=== PATIENT | male | born 1935 | race Caucasian/White ===

== ENCOUNTER 2019-07-27 14:26 | Outpatient (RCR) | payer OTHER, SELFPAY | END 2019-08-21 23:59 | disposition home or self-care (01) | LOC: SPT 14:26 | PROVIDERS: Family Provider Internal Medicine; PCP Internal Medicine; Referring Provider Internal Medicine; Visit Provider Internal Medicine | DX: R53.1 Weakness (principal); M62.81 Muscle weakness (generalized) | CPT/HCPCS: 97110; 97161 ==

== ENCOUNTER 2019-07-31 10:56 | Emergency (ER) | payer OTHER, SELFPAY ==
[2019-07-31 11:07] VITALS: BP 145/76; PULSE 91; RESP 15; TEMP 36.5; O2SAT 94; BMI 24.7
--- NOTE | 2019-07-31 11:17 | ED_ITS ---
Entered by Ellie Dick, acting as scribe for Sheila Hamilton Jul 31, 2019 10:56 HPI - Epistaxis General: Chief complaint: Epistaxis Stated complaint: AMS Time Seen by Provider: 07/31/19 11:17 Source: patient and family Mode of arrival: ambulatory Limitations: no limitations History of Present Illness: HPI Narrative: 83 yo Male presents to ED with complaint of epistaxis. Pt's states that the patient recently changed from warfarin to eliquis 5mg twice daily. Pt's states that the patient has started having more and more nose bleeds over the past 2 weeks. Pt's states that the patient cannot swallow and has a throat but that the blood has been running down and into his stomach, making him sick to his stomach. MD complaint: epistaxis Location: bilateral nostril Onset (ago): week(s) (2) Duration: intermittent Context: other anticoagulant use Associated symptoms: Reports no associated symptoms; Deny fever(s), headache(s), syncope or vomiting Review of Systems General: Reports: other (negative unless marked) Const: Denies: fever, chills, body aches, fatigue, malaise or diaphoresis Eyes: Denies: change in vision or blurry vision ENMT: Reports: nose bleeds; Denies: throat pain, painful swallowing, hoarseness, ear pain, ear discharge, Change in hearing or nasal discharge Card: Denies: chest pain, palpitations, irregular heart rhythm, syncope, pre- syncope, shortness of breath on exertion or shortness of breath when lying down Resp: Denies: shortness of breath, productive cough, non-productive cough, wheezing, coughing up blood or chest congestion GI: Denies: abdominal pain, nausea, vomiting, vomiting blood, coffee grounds in vomit, diarrhea, constipation, cramping, blood in stool or black tarry stool : Denies: flank pain, difficulty urinating, painful urination, urinary frequency, urinary urgency, decreased urine ouput, urinary incontinence or blood in urine Musc: Denies: neck pain, back pain, extremity pain, extremity swelling, joint pain, joint swelling, joint warmth or joint stiffness Skin/Breast: Denies: rash, skin tenderness or yellow skin Neuro: Denies: headache, numbness in extremities, weakness in extremities, changes in sensation, lack of coordination, difficulty walking, dizziness, vertigo or confusion Endo: Denies: excessive thirst, tired all the time, cold intolerance, excessive sweating, flushing or hot flashes Jeovany/Lymph: Denies: easy bruising, easy bleeding, petechiae or enlarged lymph nodes All/Imm: Denies: hives, throat swelling, tongue swelling, facial swelling or acute wheezing PFSH ED PFSH: Statuses (acute, chronic, etc) shown below reflect problem list status as previously entered and may not be historically accurate Social History Smoking and tobacco status: former smoker Physical Exam Const: COMMON NORMALS: no apparent distress, oriented x3, no limitations, healthy appearing and well nourished EXAM LIMITATIONS: no altered mental status GENERAL APPEARANCE: cooperative, well kempt and well developed ORIENTATION/CONSCIOUSNESS: Yes awake HENMT: COMMON NORMALS: normocephalic, head/scalp atraumatic, hearing grossly normal bilaterally, external ears normal, EAC's normal, external nose normal and moist oral mucous membranes HEAD & SCALP: normal to inspection, normocephalic and atraumatic FACE & SINUS: normal facial exam and face symmetric NOSE: external nose normal and nares normal EXTERNAL EAR: Yes external ears normal EXTERNAL AUDITORY CANAL: EAC's normal MOUTH: oral and palatal mucosa normal and tongue normal Eye: COMMON NORMALS: PERRL, EOMs intact bilaterally, conjunctivae normal and no scleral icterus GENERAL EYE: normal appearance of both eyes and normal light reflex CONJUNCTIVA: Yes conjunctivae normal SCLERA: sclerae normal CORNEA: Yes corneas normal PUPIL: Yes PERRL DIRECT OPHTHALMOSCOPY: Yes normal light reflex Neck/C-Spine: COMMON NORMALS: full ROM, no lymphadenopathy, supple, no meningeal signs and no JVD GENERAL: Yes normal visual inspection and Yes trachea midline CERVICAL SPINE: Yes cervical ROM normal Chest: COMMONS NORMALS: inspection of chest normal and palpation of chest normal Resp: COMMON NORMALS: normal respiratory effort, no retractions, no use of accessory muscles and clear to auscultation bilaterally EFFORT & INSPECTION: Yes able to speak in complete sentences AUSCULTATION: clear to auscultation bilaterally Cardio: COMMON NORMALS: no JVD, regular rate, regular rhythm, S1 normal heart sound, S2 normal heart sound, no gallops, no clicks, no murmurs and no rub JUGULAR VENOUS DISTENTION: no JVD RATE: regular rate RHYTHM: regular rhythm HEART SOUNDS: S1 normal and S2 normal GI: COMMON NORMALS: soft to palpation, non-tender, no hepatosplenomegaly and no masses INSPECTION: Yes normal to inspection PALPATION: Yes soft and Yes no hepatosplenomegaly : COMMON NORMALS: Yes no CVA tenderness BLADDER/KIDNEY EXAM: Yes no CVA tenderness Back/Pelvis: COMMON NORMALS: no CVA tenderness, thoracic and lumbar spine normal to inspection, no thoracic nor lumbar tenderness and thoraco-lumbar ROM normal Extremity: COMMON NORMALS: normal to inspection, full ROM, normal capillary refill, no joint enlargement, no clubbing, cyanosis or edema and no calf tenderness Neuro: COMMON NORMALS: oriented x3, CN's II-XII intact bilaterally, moves all extremities, no focal motor deficits and no sensory deficits noted MENINGEAL SIGNS: Yes no meningeal signs Psych: COMMON NORMALS: mental status grossly normal, thought process normal, cooperative, affect normal, speech normal and activity/motor behavior normal APPEARANCE: Yes well kempt SPEECH: Yes normal speech THOUGHT PROCESS: normal thought process Skin: COMMON NORMALS: no rashes or lesions noted, skin turgor normal, no jaundice, no petechiae and no mottling GENERAL SKIN EXAM: no rashes or lesions noted and turgor normal Course Vital Signs: Vital signs: Vital Signs Temperature 97.7 F 07/31/19 11:07 Pulse Rate 74 07/31/19 13:09 Respiratory Rate 16 07/31/19 13:09 Blood Pressure 145/76 07/31/19 11:07 Pulse Oximetry 96 07/31/19 13:09 MDM - Epistaxis [facility] Narrative: Medical decision making narrative: Arrival -Mr. Fishman is an 83-year-old male who comes in complaining of intermittent nosebleed for the past 2 weeks. He has recently made a switch from warfarin to Eliquis. He and his deny any melanotic stools or blood in his stools. Currently there is no evidence of bleeding. I see no dried blood or current bleeding in either nostril although the right nostril is somewhat swollen with edema but no active erythema. I will check baseline labs and apply oxymetazoline own and rule out any anemia. Discharge -patient has no epistaxis here. He was given oxymetazoline nasal spray to each nostril any can breathe better at this time. I see no evidence of sinusitis. The patient is anxious to go home. His hemoglobin and hematocrit are unremarkable. His lab work is unremarkable. I have encouraged him to use the Afrin for the next 2 days as well as today. They will use AYR nasal spray at home to keep his nose moist. I have given him instructions to return if he cannot stop the bleeding at home or has any other complaints. I have referred them to Dr. Miranda and they understand they will need to follow-up for evaluation but I believe at this time his nosebleed is likely from a dry nose. There is no sign of posterior bleed and no sign of blood in his throat. He is not lightheaded or dizzy or near syncopal. I believe he is safe for discharge. Family agrees and they will follow-up i as directed or return here if needed. Lab Data: Labs: Lab Results 07/31/19 07/31/19 07/31/19 Range/Units 12:07 12:07 12:07 WBC 9.1 (4.0-10.0) 10^3/ uL RBC 4.50 (4.1-5.3) 10^6/u L Hgb 13.7 (11.7-16.6) g/dL Hct 42.7 (42.0-52.0) % MCV 94.9 H (80-94) fL MCH 30.4 (28.0-34.0) pg MCHC 32.1 (30.0-36.0) g/dL RDW 13.8 (12.1-15.1) % Plt Count 138 (130-400) 10^3/c mm MPV 10.5 H (7.4-10.4) fL Neut % (Auto) 71.0 % Lymph % (Auto) 17.6 % [place] % (Auto) 10.2 % Eos % (Auto) 0.5 % Baso % (Auto) 0.5 % Neut # (Auto) 6.5 (1.8-7.7) 10^3/u L Lymph # (Auto) 1.6 (0.8-4.8) 10^3/u L [place] # (Auto) 0.9 (0.2-0.9) 10^3/u L Eos # (Auto) 0.1 (0.0-0.8) 10^3/u L Baso # (Auto) 0.1 (0.0-0.1) 10^3/u L Nucleated RBC % (a uto) 0 % Nucleated RBCs # 0.0 /100WBC PT 19.00 H (10.5-13.3) SECO NDS INR 1.53 H (0.8-1.2) APTT 40.6 H (23.9-36.7) SECO NDS Sodium 131 L (136-145) mmol/L Potassium 4.0 (3.5-5.1) mmol/L Chloride 93 L (98-107) mmol/L Carbon Dioxide 25 (22-29) mmol/L Anion Gap 17.0 (5-19) BUN 32 H (8-23) mg/dL Creatinine 0.8 (0.7-1.2) mg/dL Glucose 121 H (65-115) mg/dL Calcium 9.9 (8.5-10.5) mg/dL Total Bilirubin 1.3 H (0.15-1.2) mg/dL AST 26 (0-40) U/L ALT 17 (0-41) U/L Alkaline Phosphata se 142 H (40-130) IU/L Total Protein 6.7 (6.6-8.7) g/dL Albumin 3.4 L (3.5-5.2) g/dL Globulin 3.3 (1.3-4.6) g/dL Discharge Plan Discharge Patient Disposition: Home, Self-Care Clinical Impression: Epistaxis Condition: Stable Prescriptions: No Action Lantus U-100 Insulin 100 unit/mL Solution 25 unit SUBCUT DAILY RF: 0 isosorbide mononitrate 30 mg Tablet Extended Release 24 Hr 30 mg PO DAILY RF: 0 allopurinol 100 mg Tablet 200 mg PO DAILY RF: 0 citalopram 20 mg Tablet 10 mg PO DAILY RF: 0 aspirin 81 mg Tablet,Chewable 81 mg PO DAILY RF: 0 metoprolol tartrate 25 mg Tablet 12.5 mg PO DAILY RF: 0 Eliquis 5 mg Tablet 5 mg PO BID RF: 0 cyanocobalamin (vitamin B-12) 1,000 mcg/mL Kit 1,000 mcg IM DAILY RF: 0 Discharge Orders: Discharge Order (Routine); Ordered 07/31/19 Ordered By: Sheila Hamilton Referrals: Karel Miranad MD [Physician] - 1-3 days Jorge A Bishop [Primary Care Provider] - Discharge Diet: Usual diet Discharge Activity: Increase activity as tolerated Patient Instructions: Epistaxis (ED) Activity Restrictions/Additional Instructions: Please return to the ER immediately for any of the signs or symptoms listed on your discharge instruction sheets, worsening/changing of your symptoms, you are not getting better as quickly as expected, or for ANY other cause or concerns. Return to the ER if your nose begins to bleed again it cannot be controlled with the clamp or pressure. Use the Afrin nasal spray today and 2 more days and the nasal moisturizer AYR to prevent any future nosebleeds. Discharge Date/Time: 07/31/19 13:10 Coding Level of Care Code ED [place] Stitcher for Chg Fwd Exam Problem Focused The documentation recorded by the Mayelin red Carmen, accurately reflects the service I personally performed and the decisions made by Joy perez Eli N Jul 31, 2019 10:56
[2019-07-31] MEDS: oxymetazoline 0.05% Nasal Spray 15 mL 2 SPRAY NOSTRIL-B (11:27)
[2019-07-31 12:21] LABS: Basophils # 0.1 10^3/uL (0.0-0.1); Basophils % 0.5 %; Eosinophils # 0.1 10^3/uL (0.0-0.8); Eosinophils % 0.5 %; Hematocrit 42.7 % (42.0-52.0); Hemoglobin 13.7 g/dL (11.7-16.6); Lymphocytes # 1.6 10^3/uL (0.8-4.8); Lymphocytes % 17.6 %; Mean Corpuscular HGB Conc 32.1 g/dL (30.0-36.0); Mean Corpuscular Hemoglobin 30.4 pg (28.0-34.0); Mean Corpuscular Volume 94.9 fL (80-94); Mean Platelet Volume 10.5 fL (7.4-10.4); Monocytes # 0.9 10^3/uL (0.2-0.9); Monocytes % 10.2 %; Neutrophils # 6.5 10^3/uL (1.8-7.7); Nucleated Red Blood Cells % 0 %; Platelet Count 138 10^3/cmm (130-400); Red Cell Distribution Width 13.8 % (12.1-15.1); White Blood Count 9.1 10^3/uL (4.0-10.0)
[2019-07-31 12:29] LABS: INR 1.53 (0.8-1.2)
[2019-07-31 12:30] LABS: Partial Thromboplastin Time 40.6 SECONDS (23.9-36.7)
[2019-07-31 12:33] LABS: Alanine Aminotransferase 17 U/L (0-41); Albumin Level 3.4 g/dL (3.5-5.2); Alkaline Phosphatase 142 IU/L (40-130); Aspartate Amino Transferase 26 U/L (0-40); Blood Urea Nitrogen 32 mg/dL (8-23); Calcium 9.9 mg/dL (8.5-10.5); Carbon Dioxide 25 mmol/L (22-29); Chloride 93 mmol/L (98-107); Globulin 3.3 g/dL (1.3-4.6); Glucose 121 mg/dL (65-115); Sodium 131 mmol/L (136-145); Total Bilirubin 1.3 mg/dL (0.15-1.2); Total Protein 6.7 g/dL (6.6-8.7)
[2019-07-31 13:09] VITALS: PULSE 74; RESP 16; O2SAT 96
--- NOTE | 2019-08-02 15:54 | DCPLANNER ---
biomass power plant manager had message to schedule a follow up appointment for patient with Dr. Miranda, ENT. biomass power plant manager called the ENT clinic, spoke with Priscilla, gave clinic patients information. biomass power plant manager was unable to schedule the appointment at this time, due to patient having [facility] insurance. Mark costa called [facility] with [facility], and gave her the patients information, and faxed patients records to September.
--- NOTE | 2019-08-12 10:24 | DCPLANNER ---
custodial services manager called the ENT to clinic to confirm that a follow up appointment had been scheduled for patient. custodial services manager spoke with Priscilla, was told that the clinic was still waiting for authorization. custodial services manager called [facility] with the [facility], was told that patient seen his [facility] doctor and his medications were being changed, patient does not need a referral to ENT at this time. custodial services manager called ENT and informed the clinic, that patient does not need an appointment at this time.
== END 2019-07-31 13:10 | disposition home or self-care (01) ==
PROVIDERS: Emergency Provider Emergency Medicine; Family Provider Internal Medicine; PCP Internal Medicine
DX: Z79.4 Long term (current) use of insulin (principal); Z79.82 Long term (current) use of aspirin; Z79.01 Long term (current) use of anticoagulants; Z87.891 Personal history of nicotine dependence
CPT/HCPCS: 36415; 80053; 85025; 85610; 85730; 99281; 99282

== ENCOUNTER 2019-08-22 06:00 | Outpatient (RCR) | payer OTHER, SELFPAY | END 2019-09-21 23:59 | disposition home or self-care (01) | LOC: SPT 06:00 | PROVIDERS: Family Provider Internal Medicine; PCP Internal Medicine; Referring Provider Internal Medicine; Visit Provider Internal Medicine | DX: M62.81 Muscle weakness (generalized) (principal) | CPT/HCPCS: 97110 ==

== ENCOUNTER 2019-09-22 06:00 | Outpatient (RCR) | payer OTHER, SELFPAY | END 2019-10-21 23:59 | disposition home or self-care (01) | LOC: SPT 06:00 | PROVIDERS: Family Provider Internal Medicine; PCP Internal Medicine; Referring Provider Internal Medicine; Visit Provider Internal Medicine | DX: M62.81 Muscle weakness (generalized) (principal) | CPT/HCPCS: 97110 ==

== ENCOUNTER 2019-10-22 06:00 | Outpatient (RCR) | payer OTHER, SELFPAY | END 2019-11-21 23:59 | disposition home or self-care (01) | LOC: SPT 06:00 | PROVIDERS: PCP Internal Medicine; Referring Provider Internal Medicine; Visit Provider Internal Medicine | DX: M62.81 Muscle weakness (generalized) (principal) | CPT/HCPCS: 97110 ==

== ENCOUNTER 2019-11-22 06:00 | Outpatient (RCR) | payer OTHER, SELFPAY | END 2019-11-25 23:00 | disposition home or self-care (01) | LOC: SPT 06:00 | PROVIDERS: PCP Internal Medicine; Referring Provider Internal Medicine; Visit Provider Internal Medicine | DX: M62.81 Muscle weakness (generalized) (principal); R53.1 Weakness; Z86.73 Personal history of transient ischemic attack (TIA), and cerebral infarction without residual deficits | CPT/HCPCS: 97110 ==

== ENCOUNTER 2019-12-06 04:14 | Emergency (ER) | payer OTHER, SELFPAY ==
[2019-12-06 04:24] VITALS: BP 138/72; PULSE 66; RESP 18; TEMP 36.6; O2SAT 92; BMI 25.3
--- NOTE | 2019-12-06 04:35 | CTR_ITS ---
PROCEDURE INFORMATION: Exam: CT Head Without Contrast Exam date and time: 12/06/2019 4:40 AM Age: 84 years old Clinical indication: Injury or trauma; Fall; Initial encounter; Blunt trauma (contusions or hematomas); Without loss of consciousness TECHNIQUE: Imaging protocol: Computed tomography of the head without contrast. Radiation optimization: All CT scans at this facility use at least one of these dose optimization techniques: automated exposure control; mA and/or kV adjustment per patient size (includes targeted exams where dose is matched to clinical indication); or iterative reconstruction. COMPARISON: No relevant prior studies available. RADIATION DOSE METRICS: Total DLP: 851.95 mGy-cm FINDINGS: Brain: Hypodensity is seen in the periventricular cerebral white matter. This change is nonspecific but is most likely secondary to chronic ischemia within microvascular distributions. Aldrich white matter distinction is maintained throughout the brain. No radiographic evidence of intracranial hemorrhage. Ventricles: Ventricles are enlarged on the basis of mild diffuse cerebral volume loss. Bones/joints: Unremarkable. No acute fracture. Sinuses: Visualized sinuses are unremarkable. No fluid levels. Mastoid air cells: Visualized mastoid air cells are well aerated. Soft tissues: Unremarkable. Other findings: No intra or extra-axial masses, lesions or collections. CT/CT head wo con* [id number] IMPRESSION: No radiographic evidence of acute intracranial pathology. Radiation Dose CTDIVOL = (mGy): DLP = 851.95 (mGy-cm)
--- NOTE | 2019-12-06 05:09 | PC.NURSE ---
i agree with this assessment
[2019-12-06] MEDS: neomycin-poly-bacitracin oint 0.9 gm Pkt 1 APPLIC TOPICAL (05:10)
--- NOTE | 2019-12-06 05:15 | ED_ITS ---
HPI - Fall General: Chief Complaint: Fall Stated Complaint: fall/arm wounds Time Seen by Provider: 12/06/19 04:27 History of Present Illness: HPI Narrative: 84-year-old male who lives at home. He has a history of dementia. He got up to go to the bathroom this morning and stumbled. He hit his head, and scraped his arms on the way down. He remembers the whole event. There was no loss of consciousness. No prolonged downtime. MD complaint: fall Onset (ago): minute(s) Fall from: standing Fall witnessed: no Place fall occurred: home Loss of consciousness: None Prolonged down time: no Symptoms prior to fall: none Context: tripped/slipped Location of injury: head and other (Bilateral upper extremity) Severity scale (1-10): 3 Associated symptoms-after fall: Reports no associated symptoms and headache(s); Denies abdominal pain, chest pain, neck pain or vertigo Review of Systems Const: Denies: fever(s) or chills Eyes: Denies: change in vision ENMT: Denies: swelling of lips/tongue, bleeding gums, epistaxis, post nasal drip or sinus pain Card: Denies: chest pain, palpitations or irregular heart rhythm Resp: Denies: dyspnea, productive cough, non-productive cough or wheezing GI: Denies: abdominal pain, nausea or vomiting : Denies: difficulty urinating, dysuria or urinary frequency Musc: Denies: neck pain or back pain Skin/Breast: Denies: rash, pruritus or erythema Neuro: Reports: headache(s); Denies: dizziness or vertigo Psych: Denies: anxiety or auditory hallucinations [facility] ED PFSH: Social History Smoking and tobacco status: former smoker Physical Exam Const: GENERAL APPEARANCE: well developed ORIENTATION/CONSCIOUSNESS: Yes oriented to person and Yes oriented to place; not oriented to time HENMT: COMMON NORMALS: external ears normal and Normal external nose present HEAD & SCALP: contusion (Occipital with puncture wound.) and scalp tenderness FACE & SINUS: normal facial exam NOSE: Normal external nose present and No nasal discharge present EXTERNAL EAR: Yes external ears normal MOUTH: tongue normal TEETH & GINGIVA: no abnormal tooth and associated gingiva THROAT: posterior oropharynx normal; no peritonsillar mass Eye: COMMON NORMALS: Equal, round and reactive pupils present, EOMs intact bilaterally and conjunctivae normal EYELID: eyelids normal CONJUNCTIVA: Yes conjunctivae normal PUPIL: Yes Equal, round and reactive pupils present Neck/C-Spine: COMMON NORMALS: full ROM GENERAL: No tracheal deviation CERVICAL SPINE: Yes normal cervical lordosis and No Cervical spine tenderness Chest: COMMONS NORMALS: normal inspection of the chest CHEST: No tenderness Resp: COMMON NORMALS: clear to auscultation bilaterally EFFORT & INSPECTION: No tachypneic, No respiratory distress, No retractions, No uses accessory muscles and No tracheal deviation AUSCULTATION: clear to au scultation bilaterally, no rhonchi, no wheezes and lung sounds not diminished Cardio: COMMON NORMALS: regular rate and regular rhythm RATE: regular rate RHYTHM: regular rhythm PERIPHERAL PULSES: radial pulses present GI: INSPECTION: No abdominal distension AUSCULTATION: No Hyperactive bowel sounds present and No Hypoactive bowel sounds present PALPATION: No Guarding due to palpation present (GI) and No Rigid due to palpation PERCUSSION: no dullness to percussion and no tympanic to percussion Extremity: NARRATIVE EXTREMITY EXAM: Examination of right upper extremity reveals significant deep abrasions with skin tearing to the forearms and elbow. No discrete laceration. Exam the left upper extremity reveals a smaller skin tear to the left elbow. No repairable laceration. Neuro: SENSORIUM/ORIENTATION: Yes oriented to person, Yes oriented to place and No oriented to time Skin: COMMON NORMALS: no rashes or lesions noted GENERAL SKIN EXAM: no rashes or lesions noted Course Vital Signs: Vital signs: Vital Signs Temperature 97.9 F 12/06/19 04:24 Pulse Rate 66 12/06/19 04:24 Respiratory Rate 18 12/06/19 04:24 Blood Pressure 138/72 12/06/19 04:24 Pulse Oximetry 92 12/06/19 04:24 MDM - Fall MDM Narrative: Medical decision making narrative: Patient is anticoagulated. Head CT is negative for bleed. Wounds will be dressed with nonstick/Telfa gauze. Supplies sent home with his daughter. Discharge Plan Discharge Patient Disposition: Home, Self-Care Clinical Impression: Skin tear Contusion of scalp Qualifiers: Encounter type: initial encounter Qualified Code(s): S00.03XA - Contusion of scalp, initial encounter Condition: Stable Prescriptions: No Action Lantus U-100 Insulin 100 unit/mL Solution 25 unit SUBCUT DAILY RF: 0 isosorbide mononitrate 30 mg Tablet Extended Release 24 Hr 30 mg PO DAILY RF: 0 allopurinol 100 mg Tablet 200 mg PO DAILY RF: 0 citalopram 20 mg Tablet 20 mg PO DAILY RF: 0 aspirin 81 mg Tablet,Chewable 81 mg PO DAILY RF: 0 metoprolol tartrate 25 mg Tablet 12.5 mg PO DAILY RF: 0 cyanocobalamin (vitamin B-12) 1,000 mcg/mL Kit 1,000 mcg IM DIRECTED RF: 0 warfarin 5 mg Tablet 5 mg PO DIRECTED RF: 0 Discharge Orders: Discharge Order (Routine); Ordered 12/06/19 Ordered By: Mandeep Dorado Referrals: Jorge A Bishop [Primary Care Provider] - 7-10 days Discharge Activity: Increase activity as tolerated Patient Instructions: Scalp Contusion in Adults (ED), Skin Tear (ED) Activity Restrictions/Additional Instructions: Dress wounds with triple antibiotic ointment and nonstick pad with wrap as shown in the ER. Change once to twice a day. Return for worsening mental status, worsening headache, vomiting, continued bleeding or streaking redness of wounds, other concerning symptoms. Coding Level of Care Code ED Mold Cutting Machine Operator for Feliberto Miles
--- NOTE | 2019-12-06 05:46 | PC.NURSE ---
R bicep and L elbow area irrigated with sterile water, coated with triple A ointment, covered with Telfa non stick pad, secured with pressure dressing. Pt tolerated procedure well. Spouse present for dressing education
[2019-12-06 05:49] VITALS: BP 155/69; PULSE 80; RESP 18; O2SAT 97
== END 2019-12-06 06:02 | disposition home or self-care (01) ==
PROVIDERS: Emergency Provider Emergency Medicine; PCP Internal Medicine
DX: S00.03XA Contusion of scalp, initial encounter (principal); Z79.01 Long term (current) use of anticoagulants; Z79.82 Long term (current) use of aspirin; Z79.4 Long term (current) use of insulin; Z87.891 Personal history of nicotine dependence; W01.0XXA Fall on same level from slipping, tripping and stumbling without subsequent striking against object, initial encounter; F03.90 Unspecified dementia, unspecified severity, without behavioral disturbance, psychotic disturbance, mood disturbance, and anxiety
CPT/HCPCS: 12345; 70450; 99281; 99283

== ENCOUNTER 2020-01-16 19:48 | Emergency (ER) | payer OTHER, MEDICARE, SELFPAY ==
[2020-01-16 19:56] VITALS: BP 167/69; PULSE 66; RESP 14; TEMP 37.3; O2SAT 95; BMI 25.3
--- NOTE | 2020-01-16 22:15 | ED_ITS ---
HPI - General Adult General: Chief complaint: General Medical Stated complaint: feeding tube came out Time Seen by Provider: 01/16/20 21:41 Source: patient and family Mode of arrival: ambulatory Limitations: no limitations History of Present Illness: HPI narrative: Mitchel is a nice 84-year-old male who comes in complaining of having his Michael button fall out. The patient had it in for approximately 1 year and is due to have it exchanged tomorrow in the office of Dr. Chaves. Tonight it fell out and so he presents here for replacement. He denies any complaints or concerns. The site is irritated but it has been chronically so. They have no other complaints. Associated symptoms: Deny chest pain, dyspnea, headache(s), nausea, rash, palpitations, syncope or vomiting Review of Systems Const: Denies: fever(s) Eyes: Denies: change in vision ENMT: Denies: throat pain Card: Denies: chest pain, palpitations, syncope, pre-syncope or dyspnea on exertion Resp: Denies: dyspnea, productive cough or non-productive cough GI: Denies: abdominal pain, nausea, vomiting or diarrhea : Denies: flank pain, dysuria, urinary frequency or urinary urgency Musc: Denies: neck pain, back pain or extremity pain Skin/Breast: Denies: rash or pruritus Neuro: Denies: headache(s), numbness in extremities, weakness in extremities or dizziness Jeovany/Lymph: Denies: easy bruising or easy bleeding All/Imm: Denies: urticaria PFSH ED PFSH: Social History Smoking and tobacco status: former smoker Physical Exam Const: COMMON NORMALS: no acute distress, patient oriented x3, no limitations, healthy appearing and well nourished GENERAL APPEARANCE: cooperative, well kempt and well developed HENMT: COMMON NORMALS: normocephalic, atraumatic, external ears normal, EAC's normal and Normal external nose present HEAD & SCALP: normal to inspection, normocephalic and atraumatic FACE & SINUS: normal facial exam and face symmetric NOSE: Normal external nose present and Normal nares present EXTERNAL EAR: Yes external ears normal EXTERNAL AUDITORY CANAL: EAC's normal MOUTH: Normal oral and palatal mucosa present, lip normal and tongue normal Eye: COMMON NORMALS: Equal, round and reactive pupils present and conjunctivae normal GENERAL EYE: appearance normal, both eyes and all related structures ALIGNMENT: Yes alignment normal PERIORBITAL: periorbital findings normal EYELID: eyelids normal CONJUNCTIVA: Yes conjunctivae normal SCLERA: sclerae normal PUPIL: Yes Equal, round and reactive pupils present Neck/C-Spine: COMMON NORMALS: full ROM, no lymphadenopathy, supple, no meningeal signs and no JVD GENERAL: Yes normal visual inspection and Yes trachea midline Chest: COMMONS NORMALS: normal inspection of the chest and normal palpation of entire chest wall Resp: COMMON NORMALS: normal respiratory effort, No retractions and No use of accessory muscles EFFORT & INSPECTION: Yes able to speak in complete sentences and Yes symmetric chest movement AUSCULTATION: no crackles, no rales, no rhonchi and no wheezes Cardio: COMMON NORMALS: no JVD, regular rate, regular rhythm, S1 normal heart sound present and S2 normal heart sound present RATE: regular rate RHYTHM: regular rhythm HEART SOUNDS: S1 normal heart sound present, S2 normal heart sound present, no click, no gallops, no murmurs, no rubs and abnormal split S2 GI: COMMON NORMALS: Soft to palpation and No hepatosplenomegaly present PALPATION: Yes Soft to palpation, No Tenderness to palpation present (GI), No Guarding due to palpation present (GI), No Rigid due to palpation, Yes No hepatosplenomegaly present, No Hernia present, No Palpable mass present and No Pulsatile mass present : COMMON NORMALS: Yes no CVA tenderness BLADDER/KIDNEY EXAM: Yes no CVA tenderness Back/Pelvis: COMMON NORMALS: no CVA tenderness, thoracic and lumbar spine normal to inspection, no thoracic nor lumbar tenderness and thoraco-lumbar ROM normal Extremity: COMMON NORMALS: normal to inspection, full ROM, capillary refill normal, no joint enlargement, no clubbing, cyanosis or edema and no calf tenderness Neuro: COMMON NORMALS: patient oriented x3, CN's II-XII intact bilaterally, moves all extremities, no focal motor deficits and no sensory deficits noted MENINGEAL SIGNS: Yes no meningeal signs SPEECH: speech normal Psych: COMMON NORMALS: mental status grossly normal, Normal thought process present, cooperative, normal affect, speech normal and activity/motor behavior normal APPEARANCE: Yes well kempt SPEECH: Yes normal speech THOUGHT PROCESS: Normal thought process present Skin: COMMON NORMALS: no rashes or lesions noted, turgor normal, no jaundice, no petechiae and no mottling GENERAL SKIN EXAM: no rashes or lesions noted and turgor normal Course Vital Signs: Vital signs: Vital Signs Temperature 99.1 F 01/16/20 19:56 Pulse Rate 66 01/16/20 19:56 Respiratory Rate 14 01/16/20 19:56 Blood Pressure 167/69 01/16/20 19:56 Pulse Oximetry 95 01/16/20 19:56 MDM - General Adult MDM Narrative: Medical decision making narrative: We do not have the right sized Michael button to replace here. The patient's INR is therapeutic and the Keenna catheter is continuing to maintain a lumen. I reviewed all this with Dr. Chaves who would like the patient to present outpatient surgery tomorrow and he will evaluate the patient in outpatient surgery and likely replace the catheter with a Michael button at that time. I reviewed this with the family and they are in agreement and they can follow-up with this timeline. Lab Data: Attestation: I reviewed the patient's lab results. Labs: Lab Results 01/16/20 01/16/20 Range/Units 22:14 22:14 PT 23.40 H (10.5-13.3) SECO NDS INR 2.00 H (0.8-1.2) APTT 45.5 H (23.9-36.7) SECO NDS Discharge Plan Discharge Patient Disposition: Home Condition: Stable Prescriptions: No Action Lantus U-100 Insulin 100 unit/mL Solution 25 unit SUBCUT DAILY RF: 0 isosorbide mononitrate 30 mg Tablet Extended Release 24 Hr 30 mg PO DAILY RF: 0 allopurinol 100 mg Tablet 200 mg PO DAILY RF: 0 citalopram 20 mg Tablet 20 mg PO DAILY RF: 0 aspirin 81 mg Tablet,Chewable 81 mg PO DAILY RF: 0 metoprolol tartrate 25 mg Tablet 12.5 mg PO DAILY RF: 0 cyanocobalamin (vitamin B-12) 1,000 mcg/mL Kit 1,000 mcg IM DIRECTED RF: 0 warfarin 5 mg Tablet 5 mg PO DIRECTED RF: 0 Discharge Orders: Discharge Order (Routine); Ordered 01/16/20 Ordered By: Sheila Hamilton Referrals: Jorge A Bishop [Primary Care Provider] - Dayron Chaves MD [Physician] - 1-3 days (Present to outpatient surgery tomorrow morning between 7 and 8 AM for an evaluation by Dr. Chaves and to replace your Michael button feeding tube.) Discharge Activity: Resume usual activity Activity Restrictions/Additional Instructions: Please return to the ER immediately for bleeding from your feeding tube site, vomiting, fever, drainage from your catheter, or for any other cause for concern. Coding Level of Care Code ED Drafter Refrigeration for Chg Fwd Exam Comprehensive
[2020-01-16 22:26] LABS: Partial Thromboplastin Time 45.5 SECONDS (23.9-36.7)
[2020-01-16 23:16] VITALS: BP 146/72; PULSE 81; RESP 17; O2SAT 99
== END 2020-01-16 23:52 | disposition home or self-care (01) ==
PROVIDERS: Emergency Provider Emergency Medicine; PCP Internal Medicine
DX: K94.20 Gastrostomy complication, unspecified (principal); Z79.01 Long term (current) use of anticoagulants; Z79.82 Long term (current) use of aspirin; Z79.4 Long term (current) use of insulin; Z87.891 Personal history of nicotine dependence
CPT/HCPCS: 12345; 43762; 85610; 85730; 99281; 99283; B4087

== ENCOUNTER 2020-03-26 19:08 | Emergency (ER) | payer OTHER, SELFPAY ==
[2020-03-26 19:16] VITALS: BP 156/81; PULSE 73; RESP 14; TEMP 36.3; O2SAT 95; BMI 25.0
--- NOTE | 2020-03-26 19:34 | W.ED.EPISTAX ---
HPI - Epistaxis General: Chief complaint: Epistaxis Stated complaint: nose bleed (two days) Time Seen by Provider: 03/26/20 19:23 History of Present Illness: HPI Narrative: 84-year-old male presents with left-sided epistaxis. Patient reports that started a little bit yesterday on and off got it stopped and then again today. Presents with frequent nosebleeds. It is filling of his left nare. Patient is on Coumadin reports his last Coumadin check was about a week ago when it was 2.9 which is a little high for him. Reports he did not take his Coumadin today. He has tried some nose pinching with a nasal clamp patient reports no other complaints. MD complaint: epistaxis Associated symptoms: Deny fever(s) Review of Systems Const: Denies: fever(s) or chills Eyes: Denies: change in vision ENMT: Reports: other (Please see HPI) Card: Denies: chest pain or palpitations Resp: Denies: dyspnea or productive cough GI: Denies: abdominal pain or nausea : Denies: flank pain PFSH ED PFSH: Medical History Afib Aphasia Dementia Diabetes Gastritis Gout Hyperlipidemia Hypertension Leaking PEG tube Pacemaker PAD (peripheral artery disease) Surgical History History of coronary artery bypass graft History of esophagogastroduodenoscopy (EGD) (~2019) Family History Denies family history of Anesthesia complication Bleeding disorder Social History Smoking and tobacco status: former smoker Physical Exam Const: COMMON NORMALS: patient oriented x3 GENERAL APPEARANCE: cooperative and comfortable NUTRITIONAL APPEARANCE: thin ORIENTATION/CONSCIOUSNESS: Yes awake Eye: COMMON NORMALS: Equal, round and reactive pupils present and EOMs intact bilaterally PUPIL: Yes Equal, round and reactive pupils present Resp: COMMON NORMALS: normal respiratory effort and No retractions Cardio: COMMON NORMALS: regular rate and regular rhythm RATE: regular rate RHYTHM: regular rhythm GI: COMMON NORMALS: Soft to palpation and non-tender PALPATION: Yes Soft to palpation Extremity: COMMON NORMALS: normal to inspection Neuro: COMMON NORMALS: patient oriented x3, moves all extremities and no focal motor deficits Psych: COMMON NORMALS: Normal thought process present and cooperative THOUGHT PROCESS: Normal thought process present Course Vital Signs: Vital signs: Vital Signs Temperature 97.3 F L 03/26/20 19:16 Pulse Rate 63 03/26/20 20:37 Respiratory Rate 18 03/26/20 20:37 Blood Pressure 143/69 03/26/20 20:37 Pulse Oximetry 93 03/26/20 20:37 MDM - Epistaxis MDM Narrative: Medical decision making narrative: Patient's epistaxis resolved with some pressure and Afrin. Patient was monitored for approximately 45 minutes to an hour with no further nosebleeds. Patient is discharged home in stable condition. Lab Data: Labs: Lab Results 03/26/20 Range/Units 20:05 PT 27.90 H (12.1-14.9) SECO NDS INR 2.49 H (0.8-1.2) Discharge Plan Discharge Patient Disposition: Home Clinical Impression: Epistaxis Condition: Stable Prescriptions: No Action donepezil [Aricept] 5 mg tablet 5 mg PO DAILY RF: 0 Lantus U-100 Insulin 100 unit/mL Solution 25 unit SUBCUT DAILY RF: 0 isosorbide mononitrate 30 mg Tablet Extended Release 24 Hr 30 mg PO DAILY RF: 0 allopurinol 100 mg Tablet 200 mg PO DAILY RF: 0 citalopram 20 mg Tablet 20 mg PO DAILY RF: 0 aspirin 81 mg Tablet,Chewable 81 mg PO DAILY RF: 0 metoprolol tartrate 25 mg Tablet 12.5 mg PO DAILY RF: 0 cyanocobalamin (vitamin B-12) 1,000 mcg/mL Kit 1,000 mcg IM DIRECTED RF: 0 warfarin 5 mg Tablet 5 mg PO DIRECTED RF: 0 Discharge Orders: Discharge Order (Routine); Ordered 03/26/20 Ordered By: Michael Vasquez Referrals: Marisela Pacheco MD [Primary Care Provider] - Discharge Diet: Regular Discharge Activity: Increase activity as tolerated Patient Instructions: Epistaxis (ED) Activity Restrictions/Additional Instructions: Follow-up with your primary care provider in 2 to 3 days for continuation of care Discharge Date/Time: 03/26/20 20:39 Coding Level of Care Code ED Applications Engineering Manager for Chg Fwd Exam Comprehensive
[2020-03-26 19:36] VITALS: BP 160/76; PULSE 81; RESP 20; O2SAT 99
[2020-03-26] MEDS: oxymetazoline 0.05% Nasal Spray 15 mL 2 SPRAY NOSTRIL-L (19:39)
[2020-03-26 20:12] VITALS: BP 165/80; PULSE 65; RESP 18; O2SAT 94
[2020-03-26 20:28] LABS: INR 2.49 (0.8-1.2)
[2020-03-26 20:37] VITALS: BP 143/69; PULSE 63; RESP 18; O2SAT 93
== END 2020-03-26 20:39 | disposition home or self-care (01) ==
PROVIDERS: Emergency Provider Student in an Organized Health Care Education/Training Program; PCP Family Medicine
DX: R04.0 Epistaxis (principal); Z79.01 Long term (current) use of anticoagulants; Z79.82 Long term (current) use of aspirin; Z79.4 Long term (current) use of insulin; I48.91 Unspecified atrial fibrillation; F03.90 Unspecified dementia, unspecified severity, without behavioral disturbance, psychotic disturbance, mood disturbance, and anxiety; E11.9 Type 2 diabetes mellitus without complications; E78.5 Hyperlipidemia, unspecified; I10 Essential (primary) hypertension; Z95.0 Presence of cardiac pacemaker; Z95.1 Presence of aortocoronary bypass graft; Z87.891 Personal history of nicotine dependence
CPT/HCPCS: 12345; 85610; 99281; 99283

== ENCOUNTER 2020-07-20 06:00 | Outpatient (RCR) | payer OTHER, MEDICARE, SELFPAY | END 2020-07-23 23:59 | disposition home or self-care (01) | LOC: SPT 06:00 | PROVIDERS: PCP Family Medicine; Referring Provider Family Medicine; Visit Provider Family Medicine | DX: R26.89 Other abnormalities of gait and mobility (principal) | CPT/HCPCS: 97161 ==

== ENCOUNTER 2020-07-24 06:00 | Outpatient (RCR) | payer OTHER, MEDICARE, SELFPAY | END 2020-08-20 23:59 | disposition home or self-care (01) | LOC: SPT 06:00 | PROVIDERS: PCP Family Medicine; Referring Provider Family Medicine; Visit Provider Family Medicine | DX: R26.89 Other abnormalities of gait and mobility (principal) | CPT/HCPCS: 97110 ==

== ENCOUNTER 2020-08-21 06:00 | Outpatient (RCR) | payer OTHER, MEDICARE, SELFPAY | END 2020-09-20 23:59 | disposition home or self-care (01) | LOC: SPT 06:00 | PROVIDERS: PCP Family Medicine; Referring Provider Family Medicine; Visit Provider Family Medicine | DX: R26.89 Other abnormalities of gait and mobility (principal) | CPT/HCPCS: 97110 ==

== ENCOUNTER 2020-09-21 06:00 | Outpatient (RCR) | payer OTHER, MEDICARE, SELFPAY | END 2020-10-18 14:41 | disposition home or self-care (01) | LOC: SPT 06:00 | PROVIDERS: PCP Family Medicine; Referring Provider Family Medicine; Visit Provider Family Medicine | DX: R53.1 Weakness (principal) | CPT/HCPCS: 97110 ==

== ENCOUNTER 2020-12-12 11:23 | Emergency (ER) | payer OTHER, MEDICARE, SELFPAY ==
[2020-12-12 11:25] VITALS: BP 163/68; PULSE 75; RESP 16; TEMP 35.8; O2SAT 95; BMI 25.6
--- NOTE | 2020-12-12 11:45 | CT_ITS ---
WS: [id number] CT HEAD NONCONTRAST HISTORY: fall on coumadin TECHNIQUE: Contiguous axial imaging performed through the brain in 2.5 mm imaging. Bone and soft tiss ue windows. Sagittal and coronal reformats reviewed. All CT scans at [facility] use at ast one of these dose optimization techniques: automated exposure control; mA and/or kV adjustment pe r patient size (includes targeted exams where dose is matched to clinical indication); or iterative r econstruction. DLP: 990.95 mGy.cm COMPARISON: 12/06/2019 No acute intracranial hemorrhage, midline shift or mass effect. Mild symmetric atrophy involving the frontal and temporal lobes. Mild chronic microvascular ischemic disease. 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 Ventricles: Normal size with no hydrocephalus. Paranasal sinuses: As visualized are clear. Mastoid air cells: Well pneumatized. Calvarium and scalp: Skull is intact with no soft tissue edema or swelling. CT/CT head wo con* [id number] IMPRESSION: 1. No acute intracranial hemorrhage or edema. 2. Chronic microvascular ischemic changes with a prior infarct in the LEFT bas al ganglia. No progression of chronic disease.
--- NOTE | 2020-12-12 11:45 | XR_ITS ---
WS: [id number] PORTABLE CHEST HISTORY: dyspnea/cough COMPARISON: 11/13/2017 Median sternotomy. Dual lead RIGHT subclavian pacer. Lungs are clear and well expanded. No pleural effusion or pneumothorax. Cardiac size: Normal. Mediastinum/Aorta: Moderate atherosclerosis aorta. No osseous abnormality seen. XR/XR chest 1V portable [id number] IMPRESSION: No pneumonia. Atherosclerosis aorta. Prior CABG.
--- NOTE | 2020-12-12 11:53 | PC.PHAR ---
PTS FAMILY VERIFIED MEDICATIONS-[facility] PTS FAMILY STATES THAT WAS DCED
[2020-12-12 12:33] LABS: Bilirubin Urine Neg (Negative); Glucose Urine UA Norm (Normal); Ketones Urine Negative (Negative); Leukocyte Esterase Urine Negative (Negative); Nitrate Urine Negative (Negative); Protein Urine Neg (Negative); Urine Appearance Clear (CLEAR); Urine Color Yellow (Yellow); Urobilinogen Urine Norm (Negative); pH Urine 7 (5-7)
[2020-12-12 12:34] LABS: Add Urine Microscopic? YES; Blood Urine 2+ (Negative)
--- NOTE | 2020-12-12 12:34 | W.ED.FALL ---
HPI - Fall General: Chief Complaint: Fall Stated Complaint: FALL Time Seen by Provider: 12/12/20 11:26 History of Present Illness: HPI Narrative: 85-year-old male presents emergency room with complaint of a fall. He stumbled while at home slipped wearing socks with no traction and he fell backwards onto some furniture he hit his lower back as well as his head slightly there was no loss of consciousness he is not had any vomiting since then no hematuria no shortness of breath. He is on Coumadin and his last had his INR checked over a month ago. His caregiver is with him today and wanted to get them checked his are concerned he may more extensive injuries because of the bruising that has developed since the fall. He has been ambulatory since the fall without difficulty. MD complaint: fall Onset (ago): day(s) (2) Fall from: standing Fall witnessed: yes, by family Place fall occurred: home Loss of consciousness: None Prolonged down time: no Symptoms prior to fall: none Context: tripped/slipped Location of injury: head and back Severity: mild Associated symptoms-after fall: Denies abdominal pain, chest pain, confusion, difficulty walking, headache(s), hematuria, lightheadedness, neck pain, numbness, short of breath, vertigo or weakness Review of Systems Const: Denies: fever(s), chills, body aches, change in appetite, fatigue or malaise ENMT: Denies: throat pain, ear or mastoid pain, nasal discharge or nasal congestion Card: Denies: chest pain or lightheadedness Resp: Denies: dyspnea, productive cough or non-productive cough GI: Denies: abdominal pain : Denies: hematuria Musc: Denies: neck pain Skin/Breast: Denies: rash or pruritus Neuro: Denies: headache(s), difficulty walking, vertigo or confusion PFSH ED PFSH: Medical History Afib Aphasia Dementia Diabetes Gastritis Gout Hyperlipidemia Hypertension Leaking PEG tube Pacemaker PAD (peripheral artery disease) Surgical History History of coronary artery bypass graft History of esophagogastroduodenoscopy (EGD) (~2019) Family History Denies family history of Anesthesia complication Bleeding disorder Social History Smoking and tobacco status: former smoker Physical Exam Const: COMMON NORMALS: no acute distress GENERAL APPEARANCE: cooperative and comfortable ORIENTATION/CONSCIOUSNESS: Yes awake, Yes oriented to person, Yes oriented to place and Yes oriented to time HENMT: COMMON NORMALS: normocephalic, atraumatic, hearing grossly normal bilaterally, external ears normal, EAC's normal, TM's normal bilaterally, Normal nasal mucous membranes and turbinates present, moist oral mucous membranes and oropharynx normal HEAD & SCALP: normocephalic and atraumatic NOSE: Normal nasal mucous membranes and turbinates present EXTERNAL EAR: Yes external ears normal EXTERNAL AUDITORY CANAL: EAC's normal TYMPANIC MEMBRANE: TM's normal bilaterally Eye: COMMON NORMALS: Equal, round and reactive pupils present, EOMs intact bilaterally, conjunctivae normal and no scleral icterus CONJUNCTIVA: Yes conjunctivae normal PUPIL: Yes Equal, round and reactive pupils present Neck/C-Spine: COMMON NORMALS: full ROM, no lymphadenopathy, supple and no JVD Resp: COMMON NORMALS: normal respiratory effort, No retractions, No use of accessory muscles and clear to auscultation bilaterally AUSCULTATION: clear to auscultation bilaterally Cardio: COMMON NORMALS: no JVD, regular rate, regular rhythm and No murmurs present (Cardio) RATE: regular rate RHYTHM: regular rhythm GI: COMMON NORMALS: Soft to palpation and No hepatosplenomegaly present AUSCULTATION: Yes normoactive bowel sounds PALPATION: Yes Soft to palpation, No Tenderness to palpation present (GI), No Guarding due to palpation present (GI) and Yes No hepatosplenomegaly present Extremity: COMMON NORMALS: normal to inspection, capillary refill normal, no clubbing, cyanosis or edema, no calf tenderness and no pedal edema Neuro: SENSORIUM/ORIENTATION: Yes oriented to person, Yes oriented to place and Yes oriented to time Skin: COMMON NORMALS: no rashes or lesions noted GENERAL SKIN EXAM: no rashes or lesions noted Course Vital Signs: Vital signs: Vital Signs Temperature 96.5 F L 12/12/20 11:25 Pulse Rate 69 12/12/20 14:43 Respiratory Rate 16 12/12/20 14:43 Blood Pressure 181/83 12/12/20 14:43 Pulse Oximetry 94 12/12/20 14:43 MDM - Fall MDM Narrative: Medical decision making narrative: Reviewed imaging with patient and his daughter. No acute fractures. INR is sub therapuetic - advise to follow up with PCP. Follow up with PCP as needed. Would reccommend that he have repeat UA with in the next 1-2 wks. Lab Data: Labs: Lab Results 12/12/20 12/12/20 12/12/20 Range/Units 12:22 13:56 13:56 WBC 7.9 (4.0-10.0) 10^3/ uL RBC 4.66 (4.1-5.3) 10^6/u L Hgb 15.3 (11.7-16.6) g/dL Hct 47.6 (42.0-52.0) % MCV 102.1 H (80-94) fL MCH 32.8 (28.0-34.0) pg MCHC 32.1 (30.0-36.0) g/dL RDW 13.2 (12.1-15.1) % Plt Count 121 L (130-400) 10^3/c mm MPV 10.3 (7.4-10.4) fL Neut % (Auto) 63.8 % Lymph % (Auto) 28.6 % [place] % (Auto) 6.1 % Eos % (Auto) 0.8 % Baso % (Auto) 0.6 % Neut # (Auto) 5.01 (1.8-7.7) 10^3/u L Lymph # (Auto) 2.3 (0.8-4.8) 10^3/u L [place] # (Auto) 0.5 (0.2-0.9) 10^3/u L Eos # (Auto) 0.1 (0.0-0.8) 10^3/u L Baso # (Auto) 0.1 (0.0-0.1) 10^3/u L Nucleated RBC % (a uto) 0 % Nucleated RBCs # 0.0 /100WBC PT 20.30 H (12.1-14.9) SECO NDS INR 1.69 H (0.8-1.2) Sodium (136-145) mmol/L Potassium (3.5-5.1) mmol/L Chloride (98-107) mmol/L Carbon Dioxide (22-29) mmol/L Anion Gap (5-19) BUN (8-23) mg/dL Creatinine (0.7-1.2) mg/dL GFR Calculation Glucose (65-115) mg/dL Calculated Osmolal ity (285-295) mOsm/k g Calcium (8.5-10.5) mg/dL Creatine Kinase (39-308) U/L Urine Color Yellow (Yellow) Urine Appearance Clear (CLEAR) Urine pH 7 (5-7) Ur Specific Gravit y 1.010 (1.005-1.030) Urine Protein Neg (Negative) Urine Glucose (UA) Norm (Normal) Urine Ketones Negative (Negative) Urine Blood 2+ H (Negative) Urine Nitrate Negative (Negative) Urine Bilirubin Neg (Negative) Urine Urobilinogen Norm (Negative) mg/dL Ur Leukocyte Camille ase Negative (Negative) Urine RBC 5-10 H (0-2) /hpf Urine WBC 0-4 H (0-5) /hpf Ur Squamous Epith Cells 0-4 H (0-5) /hpf Amorphous Sediment Not Reportable Urine Bacteria None (NONE) /hpf 12/12/20 Range/Units 13:56 WBC (4.0-10.0) 10^3/ uL RBC (4.1-5.3) 10^6/u L Hgb (11.7-16.6) g/dL Hct (42.0-52.0) % MCV (80-94) fL MCH (28.0-34.0) pg MCHC (30.0-36.0) g/dL RDW (12.1-15.1) % Plt Count (130-400) 10^3/c mm MPV (7.4-10.4) fL Neut % (Auto) % Lymph % (Auto) % [place] % (Auto) % Eos % (Auto) % Baso % (Auto) % Neut # (Auto) (1.8-7.7) 10^3/u L Lymph # (Auto) (0.8-4.8) 10^3/u L [place] # (Auto) (0.2-0.9) 10^3/u L Eos # (Auto) (0.0-0.8) 10^3/u L Baso # (Auto) (0.0-0.1) 10^3/u L Nucleated RBC % (a uto) % Nucleated RBCs # /100WBC PT (12.1-14.9) SECO NDS INR (0.8-1.2) Sodium 132 L (136-145) mmol/L Potassium 5.0 (3.5-5.1) mmol/L Chloride 96 L (98-107) mmol/L Carbon Dioxide 28 (22-29) mmol/L Anion Gap 13.0 (5-19) BUN 33 H (8-23) mg/dL Creatinine 0.7 (0.7-1.2) mg/dL GFR Calculation Not Reportable Glucose 120 H (65-115) mg/dL Calculated Osmolal ity 282 L (285-295) mOsm/k g Calcium 9.3 (8.5-10.5) mg/dL Creatine Kinase 49 (39-308) U/L Urine Color (Yellow) Urine Appearance (CLEAR) Urine pH (5-7) Ur Specific Gravit y (1.005-1.030) Urine Protein (Negative) Urine Glucose (UA) (Normal) Urine Ketones (Negative) Urine Blood (Negative) Urine Nitrate (Negative) Urine Bilirubin (Negative) Urine Urobilinogen (Negative) mg/dL Ur Leukocyte Camille ase (Negative) Urine RBC (0-2) /hpf Urine WBC (0-5) /hpf Ur Squamous Epith Cells (0-5) /hpf Amorphous Sediment Urine Bacteria (NONE) /hpf Discharge Plan Discharge Patient Disposition: Home Clinical Impression: Fall, Concussion without loss of consciousness, Chronic anticoagulation, Microscopic hematuria Condition: Stable Prescriptions: No Action donepezil 10 mg tablet 10 mg PO BEDTIME RF: 0 Lantus U-100 Insulin 100 unit/mL Solution 28 unit SUBCUT QAM RF: 0 isosorbide mononitrate 30 mg Tablet Extended Release 24 Hr 30 mg PO QAM RF: 0 allopurinol 100 mg Tablet 200 mg PO QAM RF: 0 citalopram 20 mg Tablet 20 mg PO QAM RF: 0 warfarin 5 mg Tablet See Rx Instructions .ROUTE .COMPLEX RF: 0 lisinopril 5 mg Tablet 2.5 mg PO QAM RF: 0 metoprolol succinate 25 mg Tablet Extended Release 24 Hr 12.5 mg PO QAM RF: 0 Discharge Orders: Discharge ED (Routine); Ordered 12/12/20 Ordered By: Lenny Jones Referrals: Marisela Pacheco MD [Primary Care Provider] - Discharge Diet: Usual diet Discharge Activity: Increase activity as tolerated Patient Instructions: Opioid Safety Coding Level of Care Code ED Video Control Operator for Chg Fwd Exam Comprehensive
[2020-12-12 12:40] LABS: Squamous Epithelial Cell Urine 0-4 /hpf (0-5); WBC Urine 0-4 /hpf (0-5)
[2020-12-12 14:03] LABS: Basophils # 0.1 10^3/uL (0.0-0.1); Basophils % 0.6 %; Eosinophils # 0.1 10^3/uL (0.0-0.8); Eosinophils % 0.8 %; Hematocrit 47.6 % (42.0-52.0); Hemoglobin 15.3 g/dL (11.7-16.6); Lymphocytes # 2.3 10^3/uL (0.8-4.8); Lymphocytes % 28.6 %; Mean Corpuscular HGB Conc 32.1 g/dL (30.0-36.0); Mean Corpuscular Hemoglobin 32.8 pg (28.0-34.0); Mean Corpuscular Volume 102.1 fL (80-94); Mean Platelet Volume 10.3 fL (7.4-10.4); Monocytes # 0.5 10^3/uL (0.2-0.9); Monocytes % 6.1 %; Neutrophils # 5.01 10^3/uL (1.8-7.7); Neutrophils % 63.8 %; Nucleated Red Blood Cells % 0 %; Platelet Count 121 10^3/cmm (130-400); Red Blood Count 4.66 10^6/uL (4.1-5.3); Red Cell Distribution Width 13.2 % (12.1-15.1); White Blood Count 7.9 10^3/uL (4.0-10.0)
[2020-12-12 14:17] LABS: INR 1.69 (0.8-1.2)
[2020-12-12 14:22] LABS: Blood Urea Nitrogen 33 mg/dL (8-23); Calcium 9.3 mg/dL (8.5-10.5); Carbon Dioxide 28 mmol/L (22-29); Chloride 96 mmol/L (98-107); Creatine Phosphokinase 49 U/L (39-308); Glucose 120 mg/dL (65-115); Osmolality Calculated 282 mOsm/kg (285-295); Sodium 132 mmol/L (136-145)
[2020-12-12 14:43] VITALS: BP 181/83; PULSE 69; RESP 16; O2SAT 94
== END 2020-12-12 14:44 | disposition home or self-care (01) ==
PROVIDERS: Emergency Provider Family Medicine; PCP Family Medicine
DX: S06.0X0A Concussion without loss of consciousness, initial encounter (principal); R31.29 Other microscopic hematuria; Z79.01 Long term (current) use of anticoagulants; Z79.4 Long term (current) use of insulin; F03.90 Unspecified dementia, unspecified severity, without behavioral disturbance, psychotic disturbance, mood disturbance, and anxiety; E11.9 Type 2 diabetes mellitus without complications; E78.5 Hyperlipidemia, unspecified; I10 Essential (primary) hypertension; Z95.0 Presence of cardiac pacemaker; Z95.1 Presence of aortocoronary bypass graft; Z87.891 Personal history of nicotine dependence; W01.190A Fall on same level from slipping, tripping and stumbling with subsequent striking against furniture, initial encounter
CPT/HCPCS: 70450; 71045; 80048; 81001; 82550; 85025; 85610; 99283

== ENCOUNTER 2020-12-22 08:17 | Outpatient (CLI) | payer OTHER, SELFPAY ==
--- NOTE | 2020-12-22 08:22 | ECG_ITS ---
[facility] Test Date: 2020-12-22 Pat Name: Mitchel Fishman Department: Room: Gender: Male Relay Tester: : [id number] Requested By: Jessica Lomax Order Number: [id number] Tracy MD: Jessica Lomax M.D. Interpretive Statements NAME OF STUDY: LEXISCAN SESTAMIBI STRESS TEST INDICATION: Chest Pain; Dyspnea PROCEDURE: At the baseline, the blood pressure was 156/86 mm Hg with a heart rate of 62 bpm. The electrocardiogram showed atrial fibrillation with heart rate at [address]-T wave changes. ??? The Lexiscan was infused over a period of 20 seconds. A total of 0.4 milligrams of Lexiscan was infused. The stress phase was continued for a total of 5 minutes. Heart rate at the end of the stress phase was 72 bpm with a blood pressure of 155/84 mm Hg. The EKG at the peak infusion revealed no significant ST-T wave changes. The study was terminated due to protocol completion. ??? Sestamibi was injected 20 seconds after the Lexiscan infusion. ??? Blood pressure at the end of the recovery phase was 159/67 mm Hg with a heart rate of 65 beats per minute. ??? CONCLUSION: 1. No significant EKG changes with the LexiScan infusion. 2. No LexiScan induced chest pain or cardiac arrhythmia. 3. Normal blood pressure and heart rate response. 4. Sestamibi/sestamibi perfusion scan pending; see separate report. Electronically Signed On 12-26-2020 7:27:10 CDT by Jessica Lomax M.D. [email or web address]
--- NOTE | 2020-12-22 08:25 | NMCV_ITS ---
NM dg perf SPECT r/s* [id number] Mitchel Fishman Age: 85 Gender: M : 1935 Exam Date: 12/22/2020 09:49 Ordering Phys: Jessica Lomax MD ([email or web address]) Technologist: REZA Vasquez Exam Location: [facility] Indications: DYSPNEA STRESS TEST Please [facility] IMAGE PROTOCOL Rest/Stress 1 Lexiscan Day Radiopharmaceutical Dose (mCi) Administration Site Administered by Rest: Tc-99m IV REZA Dietrich Sestamibi Stress:Tc-99m 32.5 IV REZA Dietrich Sestamibi Rest: 22-Dec-2020 60 Discovery 630 Stress: 22-Dec-2020 30 Discovery 630 0.4mg Lexiscan. Supine position only as patient was unable to lay prone. SPECT RESULTS Technical Quality: Good Raw Data Analysis: Normal Image Corrections: No attenuation or motion correction applied Summed Stress Score: 1 Summed Rest Score: 0 Summed Difference Score: 1 PERFUSION FINDINGS Very small sized perfusion abnormality of mild severity of apical lateral wall on stress images. FUNCTIONAL RESULTS (calculated via Gated SPECT) Stress Image LV EF (%): 48 Stress EDV (mL):104 TID: 0.98 Stress ESV (mL):54 FUNCTIONAL FINDINGS: The left ventricle is normal in size. Transient Ischemia Dilatation of 0.98. The left ventricular ejection fraction is mildly reduced with a value of 48%. There is mildly reduced left ventricular global systolic function. IMPRESSIONS 1. Very small sized reversible perfusion abnormality of mild severity of apical lateral wall. This may be suggestive of small area of ischemia in left anterior descending/circumflex artery territory. 2. The left ventricular ejection fraction is mildly reduced with a value of 48%. 3. There is mildly reduced left ventricular global systolic function. 4. No prior similar studies to compare. Jessica Lomax MD (Electronically Signed) Final Date: 24 December 2020 14:31 S
[2020-12-22 09:39] VITALS: BMI 25.0
[2020-12-22] MEDS: regadenoson 0.4 Mg/5 ml Syringe IVP (10:23)
[2020-12-22 10:54] VITALS: BP 154/64; PULSE 70
== END 2020-12-22 08:18 | disposition home or self-care (01) ==
LOC: CDL 08:19
PROVIDERS: PCP Family Medicine; Visit Provider Internal Medicine Cardiovascular Disease
DX: R07.9 Chest pain, unspecified (principal); R06.00 Dyspnea, unspecified
CPT/HCPCS: 78452; 93017; A9500; J2785

== ENCOUNTER 2021-06-14 16:39 | Emergency (ER) | payer OTHER, SELFPAY ==
[2021-06-14 16:50] VITALS: BP 124/70; PULSE 86; RESP 16; TEMP 36.6; O2SAT 100
--- NOTE | 2021-06-14 16:53 | CTR_ITS ---
PROCEDURE INFORMATION: Exam: CT Head Without Contrast Exam date and time: 06/14/2021 4:53 PM Age: 85 years old Clinical indication: Injury or trauma; Fall; Blunt trauma (contusions or hematomas); Additional info: Fall, on coumadin TECHNIQUE: Imaging protocol: Computed tomography of the head without contrast. Radiation optimization: All CT scans at this facility use at least one of these dose optimization techniques: automated exposure control; mA and/or kV adjustment per patient size (includes targeted exams where dose is matched to clinical indication); or iterative reconstruction. COMPARISON: CT head wo con* [id number] 12/12/2020 11:56 AM RADIATION DOSE METRICS: Total DLP (mGy-cm): 951.47 FINDINGS: Brain: No hemorrhage. Moderate diffuse cerebral atrophy and sequela of chronic small ischemic disease. 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 No mass effect. Cerebral ventricles: No ventriculomegaly. Paranasal sinuses: Visualized sinuses are unremarkable. No fluid levels. Mastoid air cells: Visualized mastoid air cells are well aerated. Bones/joints: Unremarkable. No acute fracture. Soft tissues: Unremarkable. CT/CT head wo con* [id number] IMPRESSION: 1. No acute intracranial abnormality. 2. Moderate diffuse cerebral atrophy and sequela of chronic small ischemic disease. Old lacunar infarcts in the basal ganglia.
--- NOTE | 2021-06-14 17:24 | CTR_ITS ---
PROCEDURE INFORMATION: Exam: CT Cervical Spine Without Contrast Exam date and time: 06/14/2021 5:24 PM Age: 85 years old Clinical indication: Injury or trauma; Fall; Blunt trauma TECHNIQUE: Imaging protocol: Computed tomography images of the cervical spine without contrast. Radiation optimization: All CT scans at this facility use at least one of these dose optimization techniques: automated exposure control; mA and/or kV adjustment per patient size (includes targeted exams where dose is matched to clinical indication); or iterative reconstruction. COMPARISON: CT head wo con* [id number] 06/14/2021 5:52 PM RADIATION DOSE METRICS: Total DLP (mGy-cm): 626.36 FINDINGS: Bones/joints: No acute fracture. Normal alignment. Discs/Spinal canal/Neural foramina: Advanced multilevel degenerative disc disease and degenerative endplate changes centered within the mid and lower cervical spine. No significant disc protrusion. No severe spinal canal stenosis. Lungs: Biapical scarring noted. Soft tissues: Unremarkable. CT/CT cervical spin wo con* [id number] IMPRESSION: No acute findings.
--- NOTE | 2021-06-14 17:37 | ED_ITS ---
HPI - Fall General: Chief Complaint: Fall Stated Complaint: fell is on blood thinners lump on back of head Time Seen by Provider: 06/14/21 17:37 History of Present Illness: HPI Narrative: Mr. 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 Over the past number of months or perhaps longer he has had progressive decline. He has difficulty getting out of chairs and ambulating steadily. He was outside when he fell backwards and struck the base of his head on a planter box. This was 2 days ago and that afternoon. It does not sound like there was associated loss of consciousness. He was able to ambulate afterwards. He called PCP and phone call was returned today and he was directed to come to the emergency department due to fall on warfarin. He does have pain in his head and neck in addition to a small skin tear though no significant pain in right elbow. He has been taking his medications as prescribed. No other significant changes in health. No specific preceding symptoms, exacerbating, or alleviating factors. Review of Systems General: Reports: 10 or more systems reviewed and unremarkable except in HPI and below PFSH ED PFSH: Medical History Afib Aphasia Dementia Diabetes Gastritis Gout Hyperlipidemia Hypertension Leaking PEG tube Pacemaker PAD (peripheral artery disease) Surgical History History of coronary artery bypass graft History of esophagogastroduodenoscopy (EGD) (~2019) Family History Denies family history of Anesthesia complication Bleeding disorder Physical Exam Narrative: EXAM NARRATIVE: GENERAL/CONSTITUTIONAL - chronically ill-appearing. Eyes - PERRL, no conjunctival injection ENMT - contusion to neck superiorly at base of skull. atraumatic external nose and ears. Moist mucous membranes NECK - supple. trachea midline CARDIOVASCULAR - regular rate and rhythm. No retractions or accessory muscle use. ABDOMEN/GI - Nontender/Nondistended. No tenderness to percussion or evidence of peritonitis MSK - Extremities without obvious deformity, approximately 1 cm semilunar skin tear on the right elbow without active hemorrhage or limitation in range of motion. SKIN - Warm, Dry NEURO - alert and appropriately oriented. Dysarthric speech which is reportedly baseline. Moves all extremities equally. Course ED course: - Patient was seen and evaluated by me at bedside - Vital signs obtained. - Initial evaluation notable for exam as above - Discussed with patient and the risks and benefits of obtaining labs at this time, patient and are comfortable foregoing labs and I do not feel that clinical history necessitates them - Imaging notable for no acute traumatic injury related to fall - Upon serial reexamination after treatment the patient was similar - Based on patient history, evaluation, labs, and imaging as interpreted the most likely cause of the patient's condition is fall secondary to tripping in the context of significant comorbidities and anticoagulation use - The results of ED evaluation were discussed with the patient including prescriptions and/or symptomatic cares (if applicable) including appropriate and responsible use, followup plan, and return precautions. The patient verbalized understanding and felt safe for discharge. - Patient discharged in satisfactory condition. Vital Signs: Vital signs: Vital Signs Temperature 97.8 F 06/14/21 16:50 Pulse Rate 86 06/14/21 16:50 Respiratory Rate 16 06/14/21 16:50 Blood Pressure 124/70 06/14/21 16:50 Pulse Oximetry 100 06/14/21 16:50 MDM - Fall Medical Records: Attestation: I reviewed the patient's medical records. Lab Data: Attestation: I reviewed the patient's lab results. Discharge Plan Discharge Patient Disposition: Home Clinical Impression: Fall Condition: Stable Prescriptions: No Action donepezil 10 mg tablet 10 mg PO BEDTIME RF: 0 Lantus U-100 Insulin 100 unit/mL Solution 28 unit SUBCUT QAM RF: 0 isosorbide mononitrate 30 mg Tablet Extended Release 24 Hr 30 mg PO QAM RF: 0 allopurinol 100 mg Tablet 200 mg PO QAM RF: 0 citalopram 20 mg Tablet 20 mg PO QAM RF: 0 warfarin 5 mg Tablet See Rx Instructions .ROUTE .COMPLEX RF: 0 lisinopril 5 mg Tablet 2.5 mg PO QAM RF: 0 metoprolol succinate 25 mg Tablet Extended Release 24 Hr 12.5 mg PO QAM RF: 0 Discharge Orders: Discharge ED (Routine); Ordered 06/14/21 Ordered By: Girma Rm Referrals: Marisela Pacheco MD [Primary Care Provider] - Discharge Diet: Usual diet Discharge Activity: Resume usual activity Patient Instructions: Fall Prevention for Older Adults (ED) Activity Restrictions/Additional Instructions: Thank you for visiting the emergency department. You were seen and evaluated for injuries related to a fall. There is no evidence of intracranial bleeding or traumatic injury. You definitely have a bruise over the area. For discomfort you may use Tylenol or ibuprofen as long as no previous physician is told you to avoid these. Please follow-up with your primary care provider. Return to the emergency department for recurrent falls or anything else that you are concerned about and feel needs emergency department evaluation. Coding Level of Care Code ED Customs Appraiser for Feliberto Miles
--- NOTE | 2021-06-14 18:58 | PC.NURSE ---
REPORT GIVEN TO CHARLES LENTZ ASSUMED CARE.
== END 2021-06-14 20:14 | disposition home or self-care (01) ==
PROVIDERS: Emergency Provider Emergency Medicine; PCP Family Medicine
DX: Z03.89 Encounter for observation for other suspected diseases and conditions ruled out (principal); Z79.4 Long term (current) use of insulin; Z79.01 Long term (current) use of anticoagulants; F03.90 Unspecified dementia, unspecified severity, without behavioral disturbance, psychotic disturbance, mood disturbance, and anxiety; E11.9 Type 2 diabetes mellitus without complications; E78.5 Hyperlipidemia, unspecified; I10 Essential (primary) hypertension; Z95.0 Presence of cardiac pacemaker; Z95.1 Presence of aortocoronary bypass graft; I25.10 Atherosclerotic heart disease of native coronary artery without angina pectoris; W19.XXXA Unspecified fall, initial encounter
CPT/HCPCS: 70450; 72125; 99283

== ENCOUNTER → 2021-10-26 11:16 | Outpatient (BNVA) | payer OTHER, SELFPAY | PROVIDERS: PCP Family Medicine; Visit Provider Internal Medicine Cardiovascular Disease | DX: I25.10 Atherosclerotic heart disease of native coronary artery without angina pectoris (principal); Z45.010 Encounter for checking and testing of cardiac pacemaker pulse generator [battery]; E78.2 Mixed hyperlipidemia; I73.9 Peripheral vascular disease, unspecified; Z79.01 Long term (current) use of anticoagulants; E11.9 Type 2 diabetes mellitus without complications; F03.90 Unspecified dementia, unspecified severity, without behavioral disturbance, psychotic disturbance, mood disturbance, and anxiety; I48.20 Chronic atrial fibrillation, unspecified; R63.30 Feeding difficulties, unspecified; I10 Essential (primary) hypertension; Z79.4 Long term (current) use of insulin | CPT/HCPCS: 93280; 99214 ==

== ENCOUNTER → 2021-11-12 13:52 | Outpatient (BNVA) | payer OTHER, SELFPAY | PROVIDERS: PCP Family Medicine; Visit Provider Thoracic Surgery (Cardiothoracic Vascular Surgery) | DX: I96 Gangrene, not elsewhere classified (principal); L89.302 Pressure ulcer of unspecified buttock, stage 2 | CPT/HCPCS: 97597; 97598; 99203; 99213 ==

== ENCOUNTER → 2021-11-15 16:57 | Outpatient (BNVA) | payer OTHER, SELFPAY | PROVIDERS: PCP Family Medicine; Visit Provider Surgery | DX: K94.21 Gastrostomy hemorrhage (principal); Z79.01 Long term (current) use of anticoagulants | CPT/HCPCS: 99213 ==

== ENCOUNTER → 2021-11-26 15:13 | Outpatient (BNVA) | payer OTHER, SELFPAY | PROVIDERS: PCP Family Medicine; Visit Provider Thoracic Surgery (Cardiothoracic Vascular Surgery) | DX: L89.302 Pressure ulcer of unspecified buttock, stage 2 (principal) | CPT/HCPCS: 99212 ==

== ENCOUNTER → 2021-12-05 08:54 | Outpatient (BNVA) | payer OTHER, SELFPAY | PROVIDERS: PCP Family Medicine; Visit Provider Surgery | DX: Z09 Encounter for follow-up examination after completed treatment for conditions other than malignant neoplasm (principal) | CPT/HCPCS: 99213 ==

== ENCOUNTER 2021-12-06 16:23 | Inpatient (IN) | payer OTHER, MEDICARE, SELFPAY ==
[2021-12-06 16:51] VITALS: BP 135/57; PULSE 75; RESP 18; TEMP 36.5; O2SAT 97; BMI 22.6
--- NOTE | 2021-12-06 16:58 | XRR_ITS ---
PROCEDURE INFORMATION: Exam: XR Abdomen Exam date and time: 12/06/2021 5:27 PM Age: 86 years old Clinical indication: Other: Diarrhea TECHNIQUE: Imaging protocol: Radiologic exam of the abdomen. Views: Frontal supine view of the abdomen. 1 View. COMPARISON: CR XR KUB [id number] 09/22/2018 1:39 PM FINDINGS: Tubes, catheters and devices: There is a gastrostomy tube in the left upper quadrant, stable in position. Gastrointestinal tract: No evidence for bowel obstruction or perforation. Intraperitoneal space: No free intraperitoneal air. Organs: No organomegaly. Vasculature: Atherosclerotic changes in the visualized arteries. Multiple calcifications in the pelvis most likely representing calcified phleboliths. Bones/joints: Degenerative changes in the spine, sacroiliac joints, and hips. XR/XR KUB portable [id number] IMPRESSION: 1. No evidence for bowel obstruction or perforation. 2. Incidental/nonacute findings are listed in the report.
--- NOTE | 2021-12-06 17:02 | ED_ITS ---
HPI - Weakness General: Chief complaint: Weakness Stated complaint: Diarrhea Time Seen by Provider: 12/06/21 16:53 History of Present Illness: 86-year-old male brought in by family for evaluation. Patient has a history of dementia, end-stage renal failure along with other multiple comorbidities. Patient has a G-tube for feeding. Patient has been having diarrhea for least couple weeks. Patient is brought in because they were concerned about the frequency of it. Patient denies abdominal pain. There is some concern that the diarrhea is may be becoming more constant. There is no recent antibiotic use. Patient also has just some generalized weakness. This is also chronic. Associated symptoms: Denies chest pain, chills, fever(s) or vomiting Review of Systems General: Reports: Other (Limited due to dementia) Const: Reports: fatigue and malaise; Denies: fever(s) or chills Card: Denies: chest pain or palpitations Resp: Denies: dyspnea or productive cough GI: Reports: diarrhea; Denies: abdominal pain or vomiting : Reports: urinary frequency; Denies: flank pain Musc: Reports: other (None reported) Neuro: Reports: other (Please see HPI) PFSH ED PFSH: Medical History Afib Aphasia Dementia Diabetes Gastritis Gout Hyperlipidemia Hypertension Leaking PEG tube Pacemaker PAD (peripheral artery disease) Warfarin anticoagulation Surgical History History of coronary artery bypass graft History of esophagogastroduodenoscopy (EGD) (~2019) Family History Denies family history of Anesthesia complication Bleeding disorder Social History Smoking and tobacco status: never smoked Physical Exam Const: COMMON NORMALS: no acute distress, average body habitus and alert HENMT: COMMON NORMALS: normocephalic HEAD & SCALP: normal to inspection and normocephalic Eye: COMMON NORMALS: EOMs intact bilaterally GENERAL EYE: appearance normal, both eyes and all related structures Chest: CHEST: Yes Symmetrical chest wall rise Resp: COMMON NORMALS: normal respiratory effort, No retractions and No use of accessory muscles Cardio: COMMON NORMALS: regular rate and regular rhythm RATE: regular rate RHYTHM: regular rhythm GI: COMMON NORMALS: Soft to palpation INSPECTION: Yes GI tube present PALPATION: Yes Soft to palpation and No Tenderness to palpation present (GI) Extremity: COMMON NORMALS: full ROM and capillary refill normal Neuro: SENSORIUM/ORIENTATION: Yes alert Psych: COMMON NORMALS: cooperative APPEARANCE: Yes grossly normal Course Vital Signs: Vital signs: Vital Signs Temperature 97.7 F 12/06/21 16:51 Pulse Rate 78 12/06/21 17:33 Respiratory Rate 18 12/06/21 16:51 Blood Pressure 144/58 12/06/21 17:33 Pulse Oximetry 97 12/06/21 17:33 MDM - Weakness Medical Decision Making Patient with acute kidney injury with baseline BUN being in the 30s elevated at 67 and baseline creatinine around 0.7-0.9 elevated at 1.4. Patient would likely benefit from admission for IV fluids. Discussed with hospitalist Dr. Washburn who accepted graciously. Patient was stable upon Lab Data : 12/06/21 17:17 12/06/21 17:17 Radiology Impressions KUB X-Ray 12/06/21 16:58 IMPRESSION: 1. No evidence for bowel obstruction or perforation. 2. Incidental/nonacute findings are listed in the report. Laboratory Results WBC 7.2 10^3/uL (4.0-10.0) 12/06/21 17:17 RBC 3.43 10^6/uL (4.1-5.3) L 12/06/21 17:17 Hgb 11.9 g/dL (11.7-16.6) 12/06/21 17:17 Hct 36.4 % (42.0-52.0) L 12/06/21 17:17 MCV 106.1 fl (80-94) H 12/06/21 17:17 MCH 34.7 pg (28.0-34.0) H 12/06/21 17:17 MCHC 32.7 g/dL (30.0-36.0) 12/06/21 17:17 RDW 14.3 % (12.1-15.1) 12/06/21 17:17 Plt Count 96 10^3/cmm (130-400) L 12/06/21 17:17 MPV 10.1 fL (7.4-10.4) 12/06/21 17:17 Neut % (Auto) 54.2 % 12/06/21 17:17 Lymph % (Auto) 34.9 % 12/06/21 17:17 [place] % (Auto) 8.5 % 12/06/21 17:17 Eos % (Auto) 1.5 % 12/06/21 17:17 Baso % (Auto) 0.8 % 12/06/21 17:17 Neut # (Auto) 3.90 10^3/uL (1.8-7.7) 12/06/21 17:17 Lymph # (Auto) 2.5 10^3/uL (0.8-4.8) 12/06/21 17:17 [place] # (Auto) 0.6 10^3/uL (0.2-0.9) 12/06/21 17:17 Eos # (Auto) 0.1 10^3/uL (0.0-0.8) 12/06/21 17:17 Baso # (Auto) 0.1 10^3/uL (0.0-0.1) 12/06/21 17:17 Nucleated RBC % (auto) 0 % 12/06/21 17:17 Nucleated RBCs # 0.0 /100WBC 12/06/21 17:17 Sodium 138 mmol/L (136-145) 12/06/21 17:17 Potassium 5.2 mmol/L (3.5-5.1) H 12/06/21 17:17 Chloride 100 mmol/L (98-107) 12/06/21 17:17 Carbon Dioxide 28 mmol/L (22-29) 12/06/21 17:17 Anion Gap 15.2 (5-19) 12/06/21 17:17 BUN 67 mg/dL (8-23) H 12/06/21 17:17 Creatinine 1.4 mg/dL (0.7-1.2) H 12/06/21 17:17 GFR Calculation Not Reportable 12/06/21 17:17 Glucose 139 mg/dL (65-115) H 12/06/21 17:17 Calculated Osmolality 308 mOsm/kg (285-295) H 12/06/21 17:17 Calcium 9.5 mg/dL (8.5-10.5) 12/06/21 17:17 Magnesium 2.4 mg/dL (1.7-2.3) H 12/06/21 17:17 Total Bilirubin 0.4 mg/dL (0.15-1.2) 12/06/21 17:17 AST 21 U/L (0-40) 12/06/21 17:17 ALT 13 U/L (0-41) 12/06/21 17:17 Alkaline Phosphatase 85 IU/L (40-130) 12/06/21 17:17 Total Protein 6.8 g/dL (6.6-8.7) 12/06/21 17:17 Albumin 3.9 g/dL (3.5-5.2) 12/06/21 17:17 Globulin 2.9 g/dL (1.3-4.6) 12/06/21 17:17 Lipase 58 U/L (13-60) 12/06/21 17:17 Urine Color Yellow (Yellow) 12/06/21 17:50 Urine Appearance Clear (CLEAR) 12/06/21 17:50 Urine pH 7 (5-7) 12/06/21 17:50 Ur Specific Ault 1.005 (1.005-1.030) 12/06/21 17:50 Urine Protein Neg (Negative) 12/06/21 17:50 Urine Glucose (UA) Norm (Normal) 12/06/21 17:50 Urine Ketones Negative (Negative) 12/06/21 17:50 Urine Blood Neg (Negative) 12/06/21 17:50 Urine Nitrate Negative (Negative) 12/06/21 17:50 Urine Bilirubin Neg (Negative) 12/06/21 17:50 Urine Urobilinogen Norm mg/dL (Negative) 12/06/21 17:50 Ur Leukocyte Esterase Negative (Negative) 12/06/21 17:50 Discharge Plan Discharge Patient Disposition: Placed in Observation Clinical Impression: Acute kidney injury, Dehydration, Diarrhea Condition: Stable Prescriptions: No Action donepezil 10 mg tablet 10 mg PO BEDTIME 0RF hydrochlorothiazide 12.5 mg capsule 12.5 mg PO DAILY 0RF valproic acid (as sodium salt) 250 mg/5 mL (5 mL) solution 250 mg PO BID 0RF rosuvastatin 40 mg tablet 40 mg PO DAILY 0RF levothyroxine 25 mcg capsule 25 mcg PO DAILY 0RF Lantus U-100 Insulin 100 unit/mL Solution 28 unit SUBCUT QAM 0RF isosorbide mononitrate 30 mg Tablet Extended Release 24 Hr 30 mg PO QAM 0RF allopurinol 100 mg Tablet 200 mg PO QAM 0RF citalopram 20 mg Tablet 20 mg PO QAM 0RF warfarin 5 mg Tablet See Rx Instructions .ROUTE .COMPLEX 0RF Rx Instructions: 5MG PO AT BEDTIME EVERYDAY EXCEPT ON MONDAYS TAKE 2.5MG AT BEDTIME lisinopril 5 mg Tablet 2.5 mg PO QAM 0RF metoprolol succinate 25 mg Tablet Extended Release 24 Hr 12.5 mg PO QAM 0RF Referrals: Marisela Pacheco MD [Primary Care Provider] - Coding Level of Care Code ED Medical Clerical Assistant for Chg Fwd Exam Comprehensive
[2021-12-06 17:20] LABS: Basophils # 0.1 10^3/uL (0.0-0.1); Basophils % 0.8 %; Eosinophils # 0.1 10^3/uL (0.0-0.8); Eosinophils % 1.5 %; Hematocrit 36.4 % (42.0-52.0); Hemoglobin 11.9 g/dL (11.7-16.6); Lymphocytes # 2.5 10^3/uL (0.8-4.8); Lymphocytes % 34.9 %; Mean Corpuscular HGB Conc 32.7 g/dL (30.0-36.0); Mean Corpuscular Hemoglobin 34.7 pg (28.0-34.0); Mean Corpuscular Volume 106.1 fl (80-94); Mean Platelet Volume 10.1 fL (7.4-10.4); Monocytes # 0.6 10^3/uL (0.2-0.9); Monocytes % 8.5 %; Neutrophils % 54.2 %; Nucleated Red Blood Cells % 0 %; Platelet Count 96 10^3/cmm (130-400); Red Blood Count 3.43 10^6/uL (4.1-5.3); Red Cell Distribution Width 14.3 % (12.1-15.1); White Blood Count 7.2 10^3/uL (4.0-10.0)
[2021-12-06] MEDS: lactated ringers 1,000 ML 999 ML IV (17:25)
[2021-12-06 17:33] VITALS: BP 144/58; PULSE 78; O2SAT 97
[2021-12-06 17:44] LABS: Alanine Aminotransferase 13 U/L (0-41); Albumin Level 3.9 g/dL (3.5-5.2); Alkaline Phosphatase 85 IU/L (40-130); Anion Gap 15.2 (5-19); Aspartate Amino Transferase 21 U/L (0-40); Blood Urea Nitrogen 67 mg/dL (8-23); Calcium 9.5 mg/dL (8.5-10.5); Carbon Dioxide 28 mmol/L (22-29); Chloride 100 mmol/L (98-107); Globulin 2.9 g/dL (1.3-4.6); Glucose 139 mg/dL (65-115); Lipase 58 U/L (13-60); Magnesium 2.4 mg/dL (1.7-2.3); Osmolality Calculated 308 mOsm/kg (285-295); Potassium 5.2 mmol/L (3.5-5.1); Sodium 138 mmol/L (136-145); Total Bilirubin 0.4 mg/dL (0.15-1.2); Total Protein 6.8 g/dL (6.6-8.7)
[2021-12-06 18:11] LABS: Add Urine Microscopic? NO; Bilirubin Urine Neg (Negative); Blood Urine Neg (Negative); Glucose Urine UA Norm (Normal); Ketones Urine Negative (Negative); Leukocyte Esterase Urine Negative (Negative); Nitrate Urine Negative (Negative); Protein Urine Neg (Negative); Specific Gravity, Urine 1.005 (1.005-1.030); Urine Appearance Clear (CLEAR); Urine Color Yellow (Yellow); Urobilinogen Urine Norm (Negative); pH Urine 7 (5-7)
[2021-12-06 18:13] LABS: Charge for UA Resulting for Rev
--- NOTE | 2021-12-06 18:52 | PC.NURSE ---
Patient in bed, family at bedside, denies any needs at this time.
[2021-12-06 19:17] VITALS: BP 152/68; PULSE 72; RESP 16; O2SAT 97
[2021-12-06] MEDS: sodium chloride 0.9% 1,000 ML 75 ML IV (19:20)
--- NOTE | 2021-12-06 19:59 | PC.NURSE ---
Patient report called to nurse Alexander.
[2021-12-06 20:33] VITALS: BP 152/68; PULSE 72; RESP 16; O2SAT 97
--- NOTE | 2021-12-06 20:57 | PM.HP ---
Providers/Chief Complaint Admitting Physician: Phuong Sidhu MD Primary Care Provider: Marisela Pacheco MD Chief Complaint: Diarrhea History of Present Illness Mitchel iFshman is a 86 year old male who presented to the emergency room with chief complaint of worsening diarrhea. History is obtained from patient's . Mr. Fishman tries to provide history but has chronic dysarthria as well as dementia that limits his ability in this regard. He has had a PEG tube in place for approximately 15 years due to vocal cord paralysis or what his calls a throat that was noted after a carotid procedure. He has been on tube feeds predominantly since then. He takes medications with applesauce but otherwise does not take anything by mouth. Over the last couple of months he has had increasing frequency and amount of diarrhea. He has been followed by primary care provider. When patient asked to go to the bathroom he has to go very quickly. He has been having more than 10 sometimes more than 15 episodes of diarrhea a day. Stool is loose and watery. No blood has been noted. No mucus has been noted. No change in stool color. Not remarkably malodorous in nature. He takes Osmolite 1.2 kcal 3 times a day with free water flushes. No recent formula changes. Not had nausea or vomiting. He does complain of pain in his abdomen at times but not consistently. Not really having fecal incontinence or diarrhea interrupting sleep. He has noted increased air release around his feeding tube. Both him and his are concerned about this as he has had a Michael button balloon burst previously. Along with the increasing frequency of diarrhea, patient has had gradual weight loss of maybe 20 pounds. He is not very active. He has stage II decubiti on the buttocks that have been followed at wound care clinic. He has had a [employer] at home and a wound care nurse assisting in care. While the wounds have continued to improve, the worsening diarrhea has made management more difficult. From what I can gather speaking with Mrs. Fishman, the [employer] indicated that the diarrhea was getting to the point that Mr. Fishman was getting dehydrated and this was becoming more serious. Situation was discussed with primary care provider, Tara Arnold. She recommended patient come to the emergency room for further evaluation. With tube feedings they generally do some free water flushes. Attempts to increase the free water flushes over the last couple of weeks to keep up with volume losses have not been successful. Patient's denies any recent antibiotic use for the last several months. Only new medication was addition of levothyroxine in June of this year. All other medications are unchanged. No one else has been having diarrhea. No change in water source. No urinary complaints. In the emergency room patient was found to have evidence of dehydration with increased BUN and creatinine as well as potassium level. He was given some IV fluids. Request was made for admission. Since admission to the floor, patient has had multiple episodes of large-volume loose brown watery stool within a short period of time. He indicates that this is similar to how it has gotten at home. They have not tried any antimotility agents or other potential remedies at home. Has not had a colonoscopy since they moved here approximately 5 years ago and suspect it was longer since last was performed. Review of Systems General: Reports: Other (Limited accuracy secondary to cognitive capabilities) Const: Reports: chills, change in appetite, change in weight, fatigue and malaise; Denies: fever(s) Eyes: Denies: change in vision ENMT: Denies: throat pain, oral sores or nasal congestion Card: Denies: chest pain or palpitations Resp: Denies: dyspnea or productive cough GI: Reports: abdominal pain, diarrhea, bloating and belching; Denies: vomiting, fecal incontinence, hematochezia or melena : Reports: urinary incontinence; Denies: difficulty urinating or hematuria Musc: Reports: other (Limited ambulation) Skin/Breast: Reports: sores (Stage II decubiti, healing, buttocks, goes to wound care); Denies: rash Neuro: Reports: weakness in extremities, dizziness and Slurred speech present (Chronic) Psych: Reports: anxiety and memory loss Endo: Reports: cold intolerance Jeovany/Lymph: Reports: easy bruising Medications/Allergies Home Medications Medication Instructions Recorded Confirmed Last Taken Type allopurinol 100 mg tablet 200 mg PO QAM 07/31/19 12/06/21 12/06/21 History citalopram 20 mg tablet 20 mg PO QAM 07/31/19 12/06/21 12/06/21 History insulin glargine 100 unit/mL 30 unit SUBCUT QA 07/31/19 12/06/21 12/06/21 History subcutaneous solution (Lantus U-100 Insulin) isosorbide mononitrate 30 mg 30 mg PO QAM 07/31/19 12/06/21 12/06/21 History tablet,extended release 24 hr warfarin 5 mg tablet See Rx Instructions .ROUTE .COMPLEX 12/06/19 12/06/21 12/05/21 History donepezil 10 mg tablet 10 mg PO BEDTIME 05/08/20 12/06/21 12/05/21 History lisinopril 5 mg tablet 2.5 mg PO QAM 12/12/20 12/06/21 12/06/21 History metoprolol succinate 25 mg 12.5 mg PO QAM 12/12/20 12/06/21 12/06/21 History tablet,extended release 24 hr hydrochlorothiazide 12.5 mg capsule 12.5 mg PO DAILY 10/26/21 12/06/21 12/06/21 History levothyroxine 25 mcg capsule 25 mcg PO QAM 10/26/21 12/06/21 12/06/21 History rosuvastatin 40 mg tablet 20 mg PO BEDTIME 10/26/21 12/06/21 12/05/21 History valproic acid (as sodium salt) 250 250 mg PO BID 10/26/21 12/06/21 12/06/21 History mg/5 mL (5 mL) oral solution Allergies Allergy/AdvReac Type Severity Reaction Status Date / Time Iodinated Contrast Media Allergy Mild Unknown Verified 12/05/21 09:09 glipizide Allergy Unknown Verified 12/05/21 09:09 PFSH Acute PFSH: Medical History (Updated 12/07/21 @ 10:13 by Phuong Sidhu MD) Afib Aphasia Chronic kidney disease Coronary artery disease Dementia vascular Diabetes Glaucoma Gout History of adverse drug reaction reports history of significant reaction to either anesthesia or other perioperative medication that resulted in massive tongue swelling that limited airway and contributed to current dysarthria and PEG dependence History of angiography 09/2018 lower extremities, abdominal aorta - PAD predominantly below the knees, not able to do invasive intervention History of cerebellar stroke History of stress test 12/2020 Hyperlipidemia Hypertension Leaking PEG tube Pacemaker PAD (peripheral artery disease) Warfarin anticoagulation Surgical History (Updated 12/07/21 @ 09:41 by Phuong Sidhu MD) History of CEA (carotid endarterectomy) History of coronary artery bypass graft History of esophagogastroduodenoscopy (EGD) (~2018) S/P percutaneous endoscopic gastrostomy (PEG) tube placement history of leak, dysfunction, bleeding around site; replaced 12/[address] Chaves Family History (Updated 12/06/21 @ 22:00 by Phuong Sidhu MD) Mother Stroke Father Heart disease Denies family history of Anesthesia complication Bleeding disorder Social History (Updated 12/07/21 @ 09:33 by Phuong Sidhu MD) Smoking and tobacco status: former smoker Alcohol intake: former Former alcohol use details: Not in more than 30 years Substance/Drug Use: never Household members: spouse Vitals/I&O/Wt Last Vital Signs Temp 97.7 F 12/06/21 16:51 Pulse 72 12/06/21 20:33 Resp 16 12/06/21 20:33 BP 152/68 12/06/21 20:33 Pulse Ox 97 12/06/21 20:33 12/06/21 12/06/21 12/06/21 06:59 14:59 22:59 Intake Total 1000 / 1000 Balance 1000 / 1000 Weight last 48 hrs Weight 75.75 kg Physical Exam Narrative: Constitutional: Awake alert, both chronically and acutely ill-appearing, speech is difficult to understand, patient appears competent in his report of information despite much of the information not being fully accurate HEENT: Extraocular movements are intact grossly, nasopharynx is clear, oropharynx with dry mucous membranes Neck: Supple Respiratory: Clear to auscultation bilaterally Cardiovascular: Irregular, pacemaker intact, capillary refill noted but slightly prolonged distal extremities Abdomen: Soft, slightly rounded, no diffuse tenderness, rebound or guarding, PEG tube intact in the left mid abdomen. [address] Has some chronic skin changes underneath the dressing with protective salve in place around the opening. Evidence of some minor drainage around the opening. No gross bleeding Extremities: Chronic stasis changes are apparent, no pitting edema, no calf tenderness Skin: Scattered bruising noted on the abdomen in particular Neuro: Dysarthric, when he talks slower I can understand probably 60 to 70% of his speech but if he talks fast I can only understand about 30%. He follows simple commands well. He was able to follow conversation that I had with his and responded at times appropriately such as pointing out towards the end of the conversation 1 thing that his had not shared with us. Moves all extremities. Muscle wasting is evident and generally weak. Psych: Normal affect. Data : 12/06/21 17:17 12/06/21 17:17 Other Labs: Radiology Impressions KUB X-Ray 12/06/21 16:58 IMPRESSION: 1. No evidence for bowel obstruction or perforation. 2. Incidental/nonacute findings are listed in the report. Laboratory Results WBC 7.2 10^3/uL (4.0-10.0) 12/06/21 17:17 RBC 3.43 10^6/uL (4.1-5.3) L 12/06/21 17:17 Hgb 11.9 g/dL (11.7-16.6) 12/06/21 17:17 Hct 36.4 % (42.0-52.0) L 12/06/21 17:17 MCV 106.1 fl (80-94) H 12/06/21 17:17 MCH 34.7 pg (28.0-34.0) H 12/06/21 17:17 MCHC 32.7 g/dL (30.0-36.0) 12/06/21 17:17 RDW 14.3 % (12.1-15.1) 12/06/21 17:17 Plt Count 96 10^3/cmm (130-400) L 12/06/21 17:17 MPV 10.1 fL (7.4-10.4) 12/06/21 17:17 Neut % (Auto) 54.2 % 12/06/21 17:17 Lymph % (Auto) 34.9 % 12/06/21 17:17 [place] % (Auto) 8.5 % 12/06/21 17:17 Eos % (Auto) 1.5 % 12/06/21 17:17 Baso % (Auto) 0.8 % 12/06/21 17:17 Neut # (Auto) 3.90 10^3/uL (1.8-7.7) 12/06/21 17:17 Lymph # (Auto) 2.5 10^3/uL (0.8-4.8) 12/06/21 17:17 [place] # (Auto) 0.6 10^3/uL (0.2-0.9) 12/06/21 17:17 Eos # (Auto) 0.1 10^3/uL (0.0-0.8) 12/06/21 17:17 Baso # (Auto) 0.1 10^3/uL (0.0-0.1) 12/06/21 17:17 Nucleated RBC % (auto) 0 % 12/06/21 17:17 Nucleated RBCs # 0.0 /100WBC 12/06/21 17:17 Sodium 138 mmol/L (136-145) 12/06/21 17:17 Potassium 5.2 mmol/L (3.5-5.1) H 12/06/21 17:17 Chloride 100 mmol/L (98-107) 12/06/21 17:17 Carbon Dioxide 28 mmol/L (22-29) 12/06/21 17:17 Anion Gap 15.2 (5-19) 12/06/21 17:17 BUN 67 mg/dL (8-23) H 12/06/21 17:17 Creatinine 1.4 mg/dL (0.7-1.2) H 12/06/21 17:17 GFR Calculation Not Reportable 12/06/21 17:17 Glucose 139 mg/dL (65-115) H 12/06/21 17:17 Calculated Osmolality 308 mOsm/kg (285-295) H 12/06/21 17:17 Calcium 9.5 mg/dL (8.5-10.5) 12/06/21 17:17 Magnesium 2.4 mg/dL (1.7-2.3) H 12/06/21 17:17 Total Bilirubin 0.4 mg/dL (0.15-1.2) 12/06/21 17:17 AST 21 U/L (0-40) 12/06/21 17:17 ALT 13 U/L (0-41) 12/06/21 17:17 Alkaline Phosphatase 85 IU/L (40-130) 12/06/21 17:17 Total Protein 6.8 g/dL (6.6-8.7) 12/06/21 17:17 Albumin 3.9 g/dL (3.5-5.2) 12/06/21 17:17 Globulin 2.9 g/dL (1.3-4.6) 06/16/22 17:17 Lipase 58 U/L (13-60) 12/06/21 17:17 Urine Color Yellow (Yellow) 12/06/21 17:50 Urine Appearance Clear (CLEAR) 12/06/21 17:50 Urine pH 7 (5-7) 12/06/21 17:50 Ur Specific [place] 1.005 (1.005-1.030) 12/06/21 17:50 Urine Protein Neg (Negative) 12/06/21 17:50 Urine Glucose (UA) Norm (Normal) 12/06/21 17:50 Urine Ketones Negative (Negative) 12/06/21 17:50 Urine Blood Neg (Negative) 12/06/21 17:50 Urine Nitrate Negative (Negative) 12/06/21 17:50 Urine Bilirubin Neg (Negative) 12/06/21 17:50 Urine Urobilinogen Norm mg/dL (Negative) 12/06/21 17:50 Ur Leukocyte Esterase Negative (Negative) 12/06/21 17:50 A&P Assessment and plan (1) Diarrhea: Unclear reason at this point in time. Would consider it to be chronic at this point in time based on history. Sounds like there is probably a functional component that is longstanding with recent worsening. Increased frequency and volume of stooling could potentially be progression of functional disease due to progressive overall clinical decline and dementia. Medication effect, metabolic abnormality, infection, inflammatory, malabsorptive processes could all be in play. Stools are primarily watery brown in nature, without gross blood, mucus, malodorous or fatty in appearance. Status: Acute (2) Dehydration: Secondary to GI losses moderate degree with azotemia and hyperkalemia Status: Acute (3) Warfarin anticoagulation: With therapeutic INR, checks fingerstick INR daily, on secondary to atrial fibrillation, history of stroke and peripheral artery disease Status: Chronic (4) Afib: Chronic, on metoprolol for rate control Status: Chronic Qualifiers: Atrial fibrillation type: unspecified chronic Qualified Code(s): I48.20 - Chronic atrial fibrillation, unspecified (5) Diabetes: Chronically on Lantus once daily Status: Chronic Qualifiers: Diabetes mellitus moth exterminator insulin use: with longterm use Diabetes mellitus complication status: with kidney complications Diabetes mellitus complication detail: with chronic kidney disease Chronic kidney disease stage: stage 3 (moderate) Chronic kidney disease stage 3 subtype: stage 3a (GFR 45-59) Diabetes mellitus type: type 2 Qualified Code(s): E11.22 - Type 2 diabetes mellitus with diabetic chronic kidney disease; N18.31 - Chronic kidney disease, stage 3a; Z79.4 - custodial (current) use of insulin (6) Coronary artery disease: No complaints of chest pain, stress testing last performed in December 2020 did not suggest acute ischemia. On chronic isosorbide, statin, beta-blockade. Status: Chronic Qualifiers: Coronary Disease-Associated Artery/Lesion type: bypass graft [place] vs. transplanted heart: [place] heart Associated angina: without angina Qualified Code(s): I25.810 - Atherosclerosis of coronary artery bypass graft(s) without angina pectoris (7) PAD (peripheral artery disease): Last angiography several years ago was not amendable to invasive intervention Status: Chronic (8) Hypertension: Currently controlled Status: Chronic Qualifiers: Hypertension type: primary hypertension Qualified Code(s): I10 - Essential (primary) hypertension (9) Chronic kidney disease: Status: Chronic Qualifiers: Chronic kidney disease stage: stage 3 (moderate) Chronic kidney disease stage 3 subtype: stage 3a (GFR 45-59) Qualified Code(s): N18.31 - Chronic kidney disease, stage 3a (10) Degenerative disc disease: Status: Chronic Qualifiers: Spinal region: lumbar Qualified Code(s): M51.36 - Other intervertebral disc degeneration, lumbar region (11) Decubitus ulcer of buttock, stage 2: Present on admission, being followed at wound care clinic and improving Status: Acute (12) Dementia: With some Parkinson's-like features lately reported including hand tremors that are increasing in severity. Status: Chronic Qualifiers: Dementia type: vascular dementia (13) S/P percutaneous endoscopic gastrostomy (PEG) tube placement: Placed by Dr. Chaves, whom patient follows regularly Status: Acute (14) Dysarthria: Chronic, not making speech difficult to understand at times Status: Acute Plan Macrocytosis, longstanding Thrombocytopenia Inpatient admission Stool Hemoccult, lactoferrin and C. difficile Stool culture and ova and parasites CRP and lactic acid Check fecal calprotectin Check TSH Check valproic acid level Continue usual Coumadin dosing presently though may have to stop if discerned that we need to proceed with invasive procedures such as colonoscopy. At risk for vascular events without anticoagulation based on history Check EKG Continue home metoprolol, isosorbide and statin therapy IV fluids Monitor electrolytes and renal function Hold home lisinopril and HCTZ secondary to volume depletionrenal dysfunction Halve home allopurinol, citalopram, Aricept Will give half dose of usual Lantus with low-dose sliding scale Continue home levothyroxine, pending results of TSH Continue usual valproic acid dosing pending drug level Dietary consultation for tube feedings, for the time being I will continue on Osmolite 1.2 which states he takes at home along with free water flushes. Depending on results of above may want to do a trial of fasting and see if he has any improvement in his diarrhea. Discussed with that we may have to consider endoscopy but will evaluate via noninvasive approaches first given the fact that A) patient would have to come off of anticoagulation and B) that patient may not tolerate procedure and pre or postprocedure management very well Consider consultation with surgery versus discussion with Dr. Chaves who saw patient day prior to admission Routine wound care to decubiti Supportive care otherwise Current warfarin anticoagulation provides VTE coverage Findings, concerns and plans were discussed with patient's as well as with him and both were given an opportunity to ask questions Currently anticipate discharge home with resumption of home resources including [employer], wound care nurse and other assistance he presently has. indicated that she had the things that she needed at home to care for him currently but is in the process of getting a wheelchair as he does not have the strength to use the walker very well anymore. Full code presently although should be contacted during an acute event to help determine need for ongoing resuscitation Attestations Medical Necessity Statement*: Anticipated stay greater than 2 midnights in an 86-year-old gentleman who has had progressively worsening diarrhea over the last few months that has escalated even more the last week or so. Described as large-volume watery diarrhea with further details as described above. He has become dehydrated and had progressive weakness secondary to this. Comorbid conditions including chronic anticoagulation, dementia, vascular disease make evaluation difficult and also put him at risk Coding Level of Care Code Acute Manager [employer] for g Fwd Diagnoses Diarrhea R19.7 Dehydration E86.0 Diabetes E11.22; N18.31; Z79.4 Diabetes mellitus moth exterminator insulin use: with moth exterminator use Diabetes mellitus complication status: with kidney complications Diabetes mellitus complication detail: with chronic kidney disease Chronic kidney disease stage: stage 3 (moderate) Chronic kidney disease stage 3 subtype: stage 3a (GFR 45-59) Diabetes mellitus type: type 2 Warfarin anticoagulation Z79.01 Afib I48.20 Atrial fibrillation type: unspecified chronic PAD (peripheral artery disease) I73.9 Hypertension I10 Hypertension type: primary hypertension Chronic kidney disease N18.31 Chronic kidney disease stage: stage 3 (moderate) Chronic kidney disease stage 3 subtype: stage 3a (GFR 45-59) Degenerative disc disease M51.36 Spinal region: lumbar Decubitus ulcer of buttock, stage 2 L89.302 Dementia F03.90 Dementia type: vascular dementia S/P percutaneous endoscopic gastrostomy (PEG) tube placement Z93.1 Dysarthria R47.1 Coronary artery disease I25.810 Coronary Disease-Associated Artery/Lesion type: bypass graft [place] vs. transplanted heart: [place] heart Associated angina: without angina
[2021-12-06 21:12] VITALS: BP 120/66; PULSE 85; RESP 17; TEMP 36.6; O2SAT 96
[2021-12-06 21:16] LABS: Glucose Point of Care 134 mg/dL (70-110)
[2021-12-06 21:36] LABS: INR 2.08 (0.8-1.2)
[2021-12-06 22:25] LABS: Valproic Acid Level 43.2 ug/mL (50-100)
[2021-12-07] VITALS (7 sets, daily range): BP systolic 108–136; BP diastolic 63–78; PULSE 61–79; RESP 16–17; TEMP 36.3–36.6; O2SAT 92–98
[2021-12-07 04:00] LABS: Basophils % 0.5 %; Eosinophils # 0.1 10^3/uL (0.0-0.8); Eosinophils % 1.7 %; Hematocrit 33.7 % (42.0-52.0); Hemoglobin 11.1 g/dL (11.7-16.6); Lymphocytes # 2.6 10^3/uL (0.8-4.8); Lymphocytes % 39.8 %; Mean Corpuscular HGB Conc 32.9 g/dL (30.0-36.0); Mean Corpuscular Hemoglobin 34.4 pg (28.0-34.0); Mean Corpuscular Volume 104.3 fl (80-94); Mean Platelet Volume 10.2 fL (7.4-10.4); Monocytes # 0.5 10^3/uL (0.2-0.9); Monocytes % 7.6 %; Neutrophils # 3.32 10^3/uL (1.8-7.7); Neutrophils % 50.2 %; Nucleated Red Blood Cells % 0 %; Platelet Count 82 10^3/cmm (130-400); Red Blood Count 3.23 10^6/uL (4.1-5.3); Red Cell Distribution Width 13.9 % (12.1-15.1); White Blood Count 6.6 10^3/uL (4.0-10.0)
[2021-12-07 04:33] LABS: Anion Gap 12.7 (5-19); Blood Urea Nitrogen 57 mg/dL (8-23); Calcium 9.2 mg/dL (8.5-10.5); Carbon Dioxide 27 mmol/L (22-29); Chloride 103 mmol/L (98-107); Glucose 97 mg/dL (65-115); Osmolality Calculated 302 mOsm/kg (285-295); Potassium 4.7 mmol/L (3.5-5.1); Sodium 138 mmol/L (136-145)
[2021-12-07 04:41] LABS: INR 2.41 (0.8-1.2)
--- NOTE | 2021-12-07 09:57 | ECG_ITS ---
[facility] Test Date: 2021-12-07 Pat Name: Mitchel Fishman Department: Room: 266 Gender: Male Spud Sorter: : 1935 Requested By: Phuong Sidhu Order Number: [id number] Tracy MD: Axel Machuca M.D. Measurements Intervals Bonnie Rate: 69 P: AK: QRS: -3 QRSD: 100 T: 28 QT: 440 QTc: 474 Interpretive Statements ELECTRONIC VENTRICULAR PACEMAKER MODERATE ST DEPRESSION [0.05+ mV ST DEPRESSION] Compared to ECG 11/13/2017 16:52:32 ST (T wave) deviation now present Electronically Signed On 12-07-2021 20:47:15 CDT by Axel Machuca M.D. [id number]
[2021-12-07] MEDS: sodium chloride 0.9% 1,000 ML 75 ML IV (11:02)
[2021-12-07 11:04] LABS: Troponin T (5th) Once 27 ng/L (0-15)
[2021-12-07 11:19] LABS: C Reactive Protein 10.2 mg/L (0.0-4.9)
--- NOTE | 2021-12-07 11:27 | PC.NUTR ---
Consult for PEG tube feedings received. While in hospital and having frequent episodes of diarrhea, recommend consideration of continuous trickle feeds with a peptide formula, Perative 1.3, beginning at 10 mls/hr and increasing 10 mls Q8H as tolerated until goal rate of 50 mls/hr is reached with 150 mls flushes Q4H or per MD discretion. See RD assessment for details.
[2021-12-07 11:40] LABS: Glucose Point of Care 97 mg/dL (70-110)
[2021-12-07 12:03] LABS: Thyroid Stimulating Hormone 2.89 uIU/mL (0.27-4.20); Vitamin B12 292 pg/mL (232-1245)
[2021-12-07 12:14] LABS: Iron 53 ug/dL (59-158); Percent Saturation 20.9 % (20-50); Total Iron Binding Capacity 253 mcg/dl; Unsaturated Iron Binding 200 ug/dL (112-347)
[2021-12-07 13:02] LABS: Erythrocyte Sedimentation Rate 15 mm/hr (0-10)
--- NOTE | 2021-12-07 13:21 | CTR_ITS ---
PROCEDURE INFORMATION: Exam: CT Abdomen And Pelvis Without Contrast Exam date and time: 12/07/2021 1:39 PM Age: 86 years old Clinical indication: Abdominal tenderness. Peg tube placement. Chronic diarrhea. TECHNIQUE: Imaging protocol: Computed tomography of the abdomen and pelvis without contrast. Radiation optimization: All CT scans at this facility use at least one of these dose optimization techniques: automated exposure control; mA and/or kV adjustment per patient size (includes targeted exams where dose is matched to clinical indication); or iterative reconstruction. COMPARISON: CR (ABDOMEN, ) 12/06/2021 5:27 PM RADIATION DOSE METRICS: Total DLP (mGy-cm): 1817 FINDINGS: Lungs: There is patchy hazy opacity in the right lower lobe that may reflect developing pneumonia. There is scarring and/or atelectasis at the lung bases. Heart: Borderline cardiomegaly. Coronary arterial calcifications are noted. There are calcifications in the aortic valve. Pacer or AICD leads are noted. No pericardial effusion. No hiatal hernia. Liver: There is possible early hepatic cirrhosis. Gallbladder and bile ducts: The gallbladder is unremarkable. Pancreas: The pancreas is unremarkable. Spleen: The spleen is enlarged measuring 14.2 cm. Adrenal glands: The adrenal glands are unremarkable. Kidneys and ureters: Simple renal cysts on the left measure up to 1.9 cm. No hydronephrosis. Stomach and bowel: The stomach and small bowel are unremarkable. There is stranding surrounding a fat lobule adjacent to the descending colon (series 2, image 49) suspicious for subtle epiploic appendagitis. Occasional colonic diverticula without evidence of acute diverticulitis. Appendix: The appendix is unremarkable. Intraperitoneal space: No free intraperitoneal air is identified. Vasculature: No abdominal aortic aneurysm. There is heavy atherosclerotic calcification involving the abdominal aorta and its branches. There are curvilinear calcifications within the aortic lumen. This could reflect age-indeterminate dissection. There is no evidence of rupture. If clinically concerned for dissection, recommend CTA. Lymph nodes: A periportal lymph node measures 1.0 x 1.6 cm. Urinary bladder: The bladder is partially decompressed. Reproductive: The prostate measures 2.9 x 4.0 cm. Bones/joints: Median sternotomy wires are noted. No acute fracture is identified. Soft tissues: Bilateral gynecomastia. CT/CT abdomen pelvis wo con [id number] IMPRESSION: 1. Stranding surrounding a fat lobule adjacent to the descending colon suspicious for subtle epiploic appendagitis. 2. Patchy hazy opacity in the right lower lobe that may reflect developing pneumonia. 3. Heavy atherosclerotic calcification involving the abdominal aorta and its branches. There are curvilinear calcifications within the aortic lumen. This could reflect age-indeterminate dissection. There is no evidence of rupture. If clinically concerned for dissection, recommend CTA. 4. 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 5. Cardiomegaly with coronary artery disease. 6. Calcification in the aortic valve. COMMENTS: Consistent with the [employer]'s Incidental Findings Committee white paper (J Am Montez Radiol 2018): Any incidental renal lesion less than 1 cm or classified as too small to characterize, or any incidental cystic renal lesion characterized as simple-appearing, is likely benign. No follow-up imaging is recommended for these lesions per consensus recommendations based on imaging criteria.
[2021-12-07 13:45] LABS: Folate Level 13.1 ng/mL (4.5-32.2); Hepatitis A Antibody IgM Non-Reactive (Nonreactive); Hepatitis B Core AB, Total Reactive (Nonreactive); Hepatitis B Surface Antigen Non-Reactive (Nonreactive); Hepatitis C Virus Antibody Non-Reactive (Nonreactive)
[2021-12-07 13:46] LABS: HIV 1 & 2 Antibody Non-Reactive (Non-Reactiv); HIV 1 & 2 Antigen Non-Reactive (Non-Reactiv)
--- NOTE | 2021-12-07 13:51 | PM.PN ---
Subjective Subjective: Admitted overnight. H&P and labs appreciated. Seen with at bedside. Patient denies any nausea, vomiting, headache. Complains has been having multiple episodes of diarrhea for 2 months. Denies any family history of irritable or ischemic bowel disease. Denies any bloody bowel movements. States he last had colonoscopy was many years ago and was reported normal at that time. Has not had of colonoscopy last 5 years. States no changes in tube feeds or schedule recently. Vitals/I&O/Wt Last Vital Signs Temp 97.5 F L 12/07/21 11:37 Pulse 67 12/07/21 11:37 Resp 16 12/07/21 11:37 BP 121/68 12/07/21 11:37 Pulse Ox 96 12/07/21 11:37 12/06/21 12/07/21 12/07/21 22:59 06:59 14:59 Intake Total 1000 / 1000 1000 / 1000 Output Total 200 / 200 225 / 225 Balance 1000 / 1000 -200 / 800 775 / 775 Weight last 48 hrs Weight 75.75 kg Physical Exam Narrative: Constitutional: Awake alert, both chronically and acutely ill-appearing, speech is difficult to understand, patient appears competent in his report of information despite much of the information not being fully accurate HEENT: Extraocular movements are intact grossly, nasopharynx is clear, oropharynx with dry mucous membranes Neck: Supple Respiratory: Clear to auscultation bilaterally Cardiovascular: Irregular, pacemaker intact, capillary refill noted but slightly prolonged distal extremities Abdomen: Soft, slightly rounded, no diffuse tenderness, rebound or guarding, PEG tube intact in the left mid abdomen. [address] Has some chronic skin changes underneath the dressing with protective salve in place around the opening. Evidence of some minor drainage around the opening. No gross bleeding Extremities: Chronic stasis changes are apparent, no pitting edema, no calf tenderness Skin: Scattered bruising noted on the abdomen in particular Neuro: Dysarthric, when he talks slower I can understand probably 60 to 70% of his speech but if he talks fast I can only understand about 30%. He follows simple commands well. He was able to follow conversation that I had with his and responded at times appropriately such as pointing out towards the end of the conversation 1 thing that his had not shared with us. Moves all extremities. Muscle wasting is evident and generally weak. Psych: Normal affect. Data : 12/07/21 03:24 12/07/21 03:24 Micro: Microbiology 12/06/21 21:00 Stool Lactoferrin - Final Stool Occult Blood (FIT) - Final A&P Assessment and plan (1) Acute kidney injury superimposed on CKD: Baseline creatinine 0.8. Currently 1.3. Secondary to dehydration from chronic diarrhea. Medical reconciliation done for nephrotoxic drugs. Strict input output charting, daily weights. Hold off on lisinopril. Normal saline at 75 cc/h. Monitor BMP daily. Status: Acute (2) Chronic diarrhea: Going on for last 2 months. Increase frequency and volume. Stool studies awaited. Lactoferrin positive. Awaited for C. difficile and parasitic panel. Cannot rule out malabsorption syndrome/inflammatory bowel disease. Calprotectin fecal protein awaited. Check HIV, hepatitis panel, vitamin B12, folate, TSH level. Patient would most likely need a colonoscopy. wants to come as an outpatient and follow-up with patient's outpatient surgeon Dr. Chaves regarding the same. is agreeable. C. difficile is negative can go ahead with loperamide. -Dietitian consult for change in tube feed formula for hypoallergenic. Cannot rule out secondary to dysmotility syndrome. Start on Reglan. Start on baclofen low-dose. CT abdomen pelvis to rule out colitis, insertion of PEG tube. Status: Acute (3) Dehydration: Secondary to GI losses moderate degree with azotemia and hyperkalemia Status: Acute (4) Warfarin anticoagulation: With therapeutic INR, checks fingerstick INR daily, on secondary to atrial fibrillation, history of stroke and peripheral artery disease Status: Chronic (5) Afib: Chronic, on metoprolol for rate control Status: Chronic Qualifiers: Atrial fibrillation type: unspecified chronic Qualified Code(s): I48.20 - Chronic atrial fibrillation, unspecified (6) Diabetes: Chronically on Lantus once daily Status: Chronic Qualifiers: Diabetes mellitus type: type 2 Diabetes mellitus termite exterminator insulin use: with group home use Diabetes mellitus complication status: with kidney complications Diabetes mellitus complication detail: with chronic kidney disease Chronic kidney disease stage: stage 3 (moderate) Chronic kidney disease stage 3 subtype: stage 3a (GFR 45-59) Qualified Code(s): E11.22 - Type 2 diabetes mellitus with diabetic chronic kidney disease; N18.31 - Chronic kidney disease, stage 3a; Z79.4 - terminal operator (current) use of insulin (7) Coronary artery disease: No complaints of chest pain, stress testing last performed in December 2020 did not suggest acute ischemia. On chronic isosorbide, statin, beta-blockade. Status: Chronic Qualifiers: Coronary Disease-Associated Artery/Lesion type: bypass graft [place] vs. transplanted heart: [place] heart Associated angina: without angina Qualified Code(s): I25.810 - Atherosclerosis of coronary artery bypass graft(s) without angina pectoris (8) PAD (peripheral artery disease): Last angiography several years ago was not amendable to invasive intervention Status: Chronic (9) Hypertension: Currently controlled Status: Chronic Qualifiers: Hypertension type: primary hypertension Qualified Code(s): I10 - Essential (primary) hypertension (10) Chronic kidney disease: Status: Chronic Qualifiers: Chronic kidney disease stage: stage 3 (moderate) Chronic kidney disease stage 3 subtype: stage 3a (GFR 45-59) Qualified Code(s): N18.31 - Chronic kidney disease, stage 3a (11) Degenerative disc disease: Status: Chronic Qualifiers: Spinal region: lumbar Qualified Code(s): M51.36 - Other intervertebral disc degeneration, lumbar region (12) Decubitus ulcer of buttock, stage 2: Present on admission, being followed at wound care clinic and improving Status: Acute (13) Dementia: With some Parkinson's-like features lately reported including hand tremors that are increasing in severity. Status: Chronic Qualifiers: Dementia type: vascular dementia (14) S/P percutaneous endoscopic gastrostomy (PEG) tube placement: Placed by Dr. Chaves, whom patient follows regularly Status: Acute (15) Dysarthria: Chronic, not making speech difficult to understand at times Status: Acute Plan Analgesia: Tylenol as needed Glycemic control: Not needed Nutrition: Tube feeds. Change as per dietitian. CODE STATUS: Full code PUD prophylaxis: Protonix DVT prophylaxis: Warfarin will suffice for DVT prophylaxis Discharge planning:Currently anticipate discharge home with resumption of home resources including TOOL DESIGN ENGINEER, wound care nurse and other assistance he presently has. indicated that she had the things that she needed at home to care for him currently but is in the process of getting a wheelchair as he does not have the strength to use the walker very well anymore. Continue with care at [facility] floor Attestations Medical Necessity Statement*: Requires further hospitalization for management of acute kidney injury in setting of chronic diarrhea in a patient with PEG tube placement Time Spent in Patient Care: Greater than 35 minutes Coding Level of Care Code Acute Refueler for Chg Fwd Diagnoses Dehydration E86.0 Warfarin anticoagulation Z79.01 Afib I48.20 Atrial fibrillation type: unspecified chronic Diabetes E11.22; N18.31; Z79.4 Diabetes mellitus type: type 2 Diabetes mellitus termite exterminator insulin use: with group home use Diabetes mellitus complication status: with kidney complications Diabetes mellitus complication detail: with chronic kidney disease Chronic kidney disease stage: stage 3 (moderate) Chronic kidney disease stage 3 subtype: stage 3a (GFR 45-59) Coronary artery disease I25.810 Coronary Disease-Associated Artery/Lesion type: bypass graft [place] vs. transplanted heart: [place] heart Associated angina: without angina PAD (peripheral artery disease) I73.9 Hypertension I10 Hypertension type: primary hypertension Chronic kidney disease N18.31 Chronic kidney disease stage: stage 3 (moderate) Chronic kidney disease stage 3 subtype: stage 3a (GFR 45-59) Degenerative disc disease M51.36 Spinal region: lumbar Decubitus ulcer of buttock, stage 2 L89.302 Dementia F03.90 Dementia type: vascular dementia S/P percutaneous endoscopic gastrostomy (PEG) tube placement Z93.1 Dysarthria R47.1 Acute kidney injury superimposed on CKD N17.9; N18.9 Chronic diarrhea K52.9
[2021-12-07] MEDS: metoclopramide 5 mg/mL SDV 2 mL IVP ×2 (14:33→22:18)
[2021-12-07] MEDS: warfarin 5 mg Tablet PO (14:33)
[2021-12-07] MEDS: baclofen 10 mg Tablet PO ×2 (14:34→21:33)
[2021-12-07 14:36] LABS: Hepatitis B Surface AB > 1000.0 (11.5-1000)
[2021-12-07 16:33] LABS: Glucose Point of Care 94 mg/dL (70-110)
[2021-12-07] MEDS: valproic acid 250 mg/5 mL UDC PEG-TUBE (18:14)
[2021-12-07] MEDS: atorvastatin 40 mg Tablet 80 MG PO (21:33)
[2021-12-07] MEDS: donepezil 5 MG Tablet PO (21:33)
[2021-12-07 22:22] LABS: Glucose Point of Care 104 mg/dL (70-110)
[2021-12-07 22:22] LABS: Glucose Point of Care 96 mg/dL (70-110)
[2021-12-08] MEDS: sodium chloride 0.9% 1,000 ML 75 ML IV ×2 (00:54→14:36)
[2021-12-08] MEDS: metoclopramide 5 mg/mL SDV 2 mL IVP ×4 (03:35→22:33)
[2021-12-08 03:44] VITALS: BP 152/77; PULSE 68; RESP 18; O2SAT 93
[2021-12-08 04:18] LABS: INR 1.88 (0.8-1.2)
[2021-12-08 04:28] LABS: Chol HDL Ratio 3.68 mg/dL (1.0-5.00); Cholesterol 114 mg/dL (0-200); HDL Cholesterol 31 mg/dL (60-100); LDL Cholesterol Calculated 55 mg/dL (50-129); Lactate (Lactic Acid level) 0.8 mmol/L (0.5-2.2); Triglycerides 140 mg/dL (0-150); VLDL Cholestrol Calculation 28 mg/dL (0-30)
[2021-12-08 04:31] LABS: Estmated Average Glucose 100; Hemoglobin A1C 5.1 % (4.0-6.0)
[2021-12-08] MEDS: metoprolol succinate ER (24 HR) 25 mg Tablet 12.5 MG PO (06:12)
[2021-12-08] MEDS: baclofen 10 mg Tablet PO ×2 (06:12→14:35)
[2021-12-08] MEDS: insulin glargine 100 units/1 mL 15 UNIT SUBCUT (06:13)
[2021-12-08] MEDS: citalopram 20 mg Tablet 10 MG PO (06:13)
[2021-12-08] MEDS: isosorbide mononitrate ER 30 mg Tablet PO (06:13)
[2021-12-08] MEDS: levothyroxine 25 mcg Tablet PO (06:13)
[2021-12-08] MEDS: allopurinol 100 mg Tablet PO (06:13)
[2021-12-08 06:37] LABS: Glucose Point of Care 116 mg/dL (70-110)
[2021-12-08 08:00] VITALS: BP 145/70; PULSE 65; RESP 16; TEMP 36.3; O2SAT 96
[2021-12-08] MEDS: valproic acid 250 mg/5 mL UDC PEG-TUBE ×2 (09:42→17:57)
[2021-12-08 11:16] VITALS: BP 162/71; PULSE 66; RESP 16; TEMP 36.9; O2SAT 98
[2021-12-08 11:48] LABS: Glucose Point of Care 108 mg/dL (70-110)
[2021-12-08 13:32] LABS: Alanine Aminotransferase 9 U/L (0-41); Albumin Level 3.4 g/dL (3.5-5.2); Alkaline Phosphatase 81 IU/L (40-130); Anion Gap 16.7 (5-19); Aspartate Amino Transferase 21 U/L (0-40); Blood Urea Nitrogen 42 mg/dL (8-23); Carbon Dioxide 21 mmol/L (22-29); Chloride 104 mmol/L (98-107); Globulin 3.2 g/dL (1.3-4.6); Glucose 100 mg/dL (65-115); Osmolality Calculated 295 mOsm/kg (285-295); Potassium 4.7 mmol/L (3.5-5.1); Sodium 137 mmol/L (136-145); Total Bilirubin 0.7 mg/dL (0.15-1.2); Total Protein 6.6 g/dL (6.6-8.7)
[2021-12-08 15:24] VITALS: BP 113/65; PULSE 64; RESP 16; TEMP 36.9; O2SAT 97
--- NOTE | 2021-12-08 16:27 | P.PN_ITS ---
Subjective Subjective: No acute events overnight. On examination patient sleeping comfortably in bed. Tolerating tube feeds well. Currently running at 30 cc an hour. Plan to increase to goal of 50 cc/h. Has remained hemodynamically stable and afebrile. Continues to have multiple soft bowel movements. Vitals/I&O/Wt Last Vital Signs Temp 98.4 F 12/08/21 15:24 Pulse 64 12/08/21 15:24 Resp 16 12/08/21 15:24 BP 113/65 12/08/21 15:24 Pulse Ox 97 12/08/21 15:24 12/08/21 12/08/21 12/08/21 06:59 14:59 22:59 Intake Total 243.75 / 2074.75 950 / 950 Balance 243.75 / 1649.75 950 / 950 Weight last 48 hrs Weight 75.75 kg Physical Exam Narrative: Constitutional: Awake alert, both chronically and acutely ill-a ppearing, speech is difficult to understand, patient appears competent in his report of information despite much of the information not being fully accurate HEENT: Extraocular movements are intact grossly, nasopharynx is clear, oropharynx with dry mucous membranes Neck: Supple Respiratory: Clear to auscultation bilaterally Cardiovascular: Irregular, pacemaker intact, capillary refill noted but slightly prolonged distal extremities Abdomen: Soft, slightly rounded, no diffuse tenderness, rebound or guarding, PEG tube intact in the left mid abdomen. [address] Has some chronic skin changes underneath the dressing with protective salve in place around the opening. Evidence of some minor drainage around the opening. No gross bleeding Extremities: Chronic stasis changes are apparent, no pitting edema, no calf tenderness Skin: Scattered bruising noted on the abdomen in particular Neuro: Dysarthric, when he talks slower I can understand probably 60 to 70% of his speech but if he talks fast I can only understand about 30%. He follows simple commands well. He was able to follow conversation that I had with his and responded at times appropriately such as pointing out towards the end of the conversation 1 thing that his had not shared with us. Moves all extremities. Muscle wasting is evident and generally weak. Psych: Normal affect. Data : 12/07/21 03:24 12/08/21 03:10 Micro: Microbiology 12/06/21 21:00 Stool Lactoferrin - Final Stool C.difficile Toxin B Gene (PCR) - Final Occult Blood (FIT) - Final 12/06/21 21:00 Enteric Pathogens (PCR) - Final Stool Parasite Antigen Panel - Final A&P Assessment and plan (1) Acute kidney injury superimposed on CKD: Baseline creatinine 0.8. Trending down to normal today. Secondary to dehydration from chronic diarrhea. Medical reconciliation done for nephrotoxic drugs. Strict input output charting, daily weights. Hold off on lisinopril. Normal saline at 75 cc/h. Monitor BMP daily. Status: Acute (2) Chronic diarrhea: Going on for last 2 months. Increase frequency and volume. Stool studies awaited. Lactoferrin positive. Awaited for C. difficile and parasitic panel. Cannot rule out malabsorption syndrome/inflammatory bowel disease. Calprotectin fecal protein awaited. HIV, hepatitis panel, vitamin B12, folate, TSH level- Negative Patient would most likely need a colonoscopy. wants to come as an outpatient and follow-up with patient's outpatient surgeon Dr. Chaves regarding the same. is agreeable. C. difficile is negative can go ahead with loperamide. Diet change as per dietitian. Started on new formula. Plan for continuous feed with food pump at home once patient is able to achieve the goal of 50 cc/h. Cannot rule out secondary to dysmotility syndrome. Start on Reglan. Start on baclofen low-dose. Status: Acute (3) Dehydration: Secondary to GI losses moderate degree with azotemia and hyperkalemia Status: Acute (4) Warfarin anticoagulation: With therapeutic INR, checks fingerstick INR daily, on secondary to atrial fibrillation, history of stroke and peripheral artery disease Status: Chronic (5) Afib: Chronic, on metoprolol for rate control Status: Chronic Qualifiers: Atrial fibrillation type: unspecified chronic Qualified Code(s): I48.20 - Chronic atrial fibrillation, unspecified (6) Diabetes: Chronically on Lantus once daily Status: Chronic Qualifiers: Diabetes mellitus type: type 2 Diabetes mellitus machine long goods helper insulin use: with machine long goods helper use Diabetes mellitus complication status: with kidney complications Diabetes mellitus complication detail: with chronic kidney disease Chronic kidney disease stage: stage 3 (moderate) Chronic kidney disease stage 3 subtype: stage 3a (GFR 45-59) Qualified Code(s): E11.22 - Type 2 diabetes mellitus with diabetic chronic kidney disease; N18.31 - Chronic kidney disease, stage 3a; Z79.4 - halfway (current) use of insulin (7) Coronary artery disease: No complaints of chest pain, stress testing last performed in December 2020 did not suggest acute ischemia. On chronic isosorbide, statin, beta-blockade. Status: Chronic Qualifiers: Coronary Disease-Associated Artery/Lesion type: bypass graft [place] vs. transplanted heart: [place] heart Associated angina: without angina Qualified C ode(s): I25.810 - Atherosclerosis of coronary artery bypass graft(s) without angina pectoris (8) PAD (peripheral artery disease): Last angiography several years ago was not amendable to invasive intervention Status: Chronic (9) Hypertension: Currently controlled Status: Chronic Qualifiers: Hypertension type: primary hypertension Qualified Code(s): I10 - Essential (primary) hypertension (10) Chronic kidney disease: Status: Chronic Qualifiers: Chronic kidney disease stage: stage 3 (moderate) Chronic kidney disease stage 3 subtype: stage 3a (GFR 45-59) Qualified Code(s): N18.31 - Chronic kidney disease, stage 3a (11) Degenerative disc disease: Status: Chronic Qualifiers: Spinal region: lumbar Qualified Code(s): M51.36 - Other intervertebral disc degeneration, lumbar region (12) Decubitus ulcer of buttock, stage 2: Present on admission, being followed at wound care clinic and improving Status: Acute (13) Dementia: With some Parkinson's-like features lately reported including hand tremors that are increasing in severity. Status: Chronic Qualifiers: Dementia type: vascular dementia (14) S/P percutaneous endoscopic gastrostomy (PEG) tube placement: Placed by Dr. Chaves, whom patient follows regularly Status: Acute (15) Dysarthria: Chronic, not making speech difficult to understand at times Status: Acute Plan Analgesia: Tylenol as needed Glycemic for: Not needed Nutrition: Continuous tube feeds. Goal of 50 cc/h. Currently at 30 cc/h CODE STATUS: Full code PUD prophylaxis: Protonix DVT prophylaxis: Warfarin will suffice for DVT prophylaxis Discharge planning: Plan to discharge within next 24 hours if feeding plan can be made available to patient, patient is able to tolerate to goal rate of 50 cc/h with referral for Dr. Chaves for colonoscopy as an outpatient. Continue with care at [facility] floor Attestations Medical Necessity Statement*: Requires further hospitalization for management of chronic diarrhea, resolving HANSEL secondary to dehydration in a patient on PEG tube feeds while he is transition from bolus to continuous feeds and goal rate is achieved. Time Spent in Patient Care: Greater than 35 minutes Coding Level of Care Code Acute Handyman for g Fwd Diagnoses Acute kidney injury superimposed on CKD N17.9; N18.9 Chronic diarrhea K52.9 Dehydration E86.0 Warfarin anticoagulation Z79.01 Afib I48.20 Atrial fibrillation type: unspecified chronic Diabetes E11.22; N18.31; Z79.4 Diabetes mellitus type: type 2 Diabetes mellitus machine long goods helper insulin use: with [facility] use Diabetes mellitus complication status: with kidney complications Diabetes mellitus complication detail: with chronic kidney disease Chronic kidney disease stage: stage 3 (moderate) Chronic kidney disease stage 3 subtype: stage 3a (GFR 45-59) Coronary artery disease I25.810 Coronary Disease-Associated Artery/Lesion type: bypass graft [place] vs. transplanted heart: [place] heart Associated angina: without angina PAD (peripheral artery disease) I73.9 Hypertension I10 Hypertension type: primary hypertension Chronic kidney disease N18.31 Chronic kidney disease stage: stage 3 (moderate) Chronic kidney disease stage 3 subtype: stage 3a (GFR 45-59) Degenerative disc disease M51.36 Spinal region: lumbar Decubitus ulcer of buttock, stage 2 L89.302 Dementia F03.90 Dementia type: vascular dementia S/P percutaneous endoscopic gastrostomy (PEG) tube placement Z93.1 Dysarthria R47.1
[2021-12-08] MEDS: cyanocobalamin 1,000 mcg/mL SDV 1000 MCG IM (17:57)
[2021-12-08] MEDS: baclofen 10 mg Tablet 5 MG PO (17:57)
[2021-12-08] MEDS: loperamide liquid 1 mg/7.5 mL Btl 120 mL 4 MG PO (17:58)
--- NOTE | 2021-12-08 19:33 | PC.NURSE ---
Call received from Dr Washburn regarding patient's PEG feedings. Physician was advised that patient was tolerating 30ml/hr feedings well with minimal residual. Physician stated he would like feedings increased by 10ml/hr Q4H rather than Q8H. Order edited per physician request. Physician would also like nurses to begin to educate PCG on use of kangaroo pump for feedings as the patient could potentially be discharged with continuous feedings to home.
[2021-12-08 19:51] VITALS: BP 132/89; PULSE 90; RESP 18; TEMP 36.2; O2SAT 90
[2021-12-08] MEDS: donepezil 5 MG Tablet PO (20:15)
[2021-12-08] MEDS: atorvastatin 40 mg Tablet 80 MG PO (20:15)
[2021-12-08 20:33] LABS: Glucose Point of Care 146 mg/dL (70-110)
[2021-12-08] MEDS: insulin lispro 100 unit/1 mL SUBCUT (20:59)
[2021-12-08 22:00] LABS: Glucose Point of Care 115 mg/dL (70-110)
[2021-12-09] VITALS: BP 138/68; PULSE 77; RESP 16; TEMP 36.6; O2SAT 98
[2021-12-09] MEDS: sodium chloride 0.9% 1,000 ML 75 ML IV (03:17)
[2021-12-09 04:00] VITALS: BP 131/69; PULSE 72; RESP 16; TEMP 36.6; O2SAT 96
[2021-12-09 04:45] LABS: Alanine Aminotransferase 10 U/L (0-41); Albumin Level 3.6 g/dL (3.5-5.2); Alkaline Phosphatase 79 IU/L (40-130); Anion Gap 13.2 (5-19); Aspartate Amino Transferase 19 U/L (0-40); Blood Urea Nitrogen 31 mg/dL (8-23); Carbon Dioxide 24 mmol/L (22-29); Chloride 103 mmol/L (98-107); Globulin 2.6 g/dL (1.3-4.6); Glucose 130 mg/dL (65-115); Osmolality Calculated 290 mOsm/kg (285-295); Potassium 4.2 mmol/L (3.5-5.1); Sodium 136 mmol/L (136-145); Total Bilirubin 0.6 mg/dL (0.15-1.2); Total Protein 6.2 g/dL (6.6-8.7)
[2021-12-09] MEDS: baclofen 10 mg Tablet 5 MG PO (05:04)
[2021-12-09] MEDS: levothyroxine 25 mcg Tablet PO (05:05)
[2021-12-09] MEDS: isosorbide mononitrate ER 30 mg Tablet PO (05:06)
[2021-12-09] MEDS: metoprolol succinate ER (24 HR) 25 mg Tablet 12.5 MG PO (05:06)
[2021-12-09] MEDS: citalopram 20 mg Tablet 10 MG PO (05:07)
[2021-12-09] MEDS: metoclopramide 5 mg/mL SDV 2 mL IVP ×2 (05:44→09:01)
[2021-12-09] MEDS: allopurinol 100 mg Tablet PO (05:45)
[2021-12-09] MEDS: insulin glargine 100 units/1 mL 15 UNIT SUBCUT (05:46)
[2021-12-09 06:30] LABS: Glucose Point of Care 144 mg/dL (70-110)
[2021-12-09 07:48] VITALS: BP 158/65; PULSE 75; RESP 20; TEMP 36.4; O2SAT 97
[2021-12-09] MEDS: valproic acid 250 mg/5 mL UDC PEG-TUBE (09:01)
--- NOTE | 2021-12-09 10:13 | PC.SOCIAL ---
IMM update IMM updated with patient's family at bedside. Pg 2 signed, verbalized an understanding as well, copy Pg 2 provided. Initialled, dated, timed, and placed in chart.
[2021-12-09 11:53] LABS: Glucose Point of Care 142 mg/dL (70-110)
[2021-12-09 12:00] VITALS: BP 123/67; PULSE 71; RESP 15; TEMP 36.4; O2SAT 97
--- NOTE | 2021-12-09 12:29 | P.DS_ITS ---
Discharge Providers Date of Admission: 12/06/21 18:11 Date of Discharge: December 09, 2021 Attending Provider at Admission: Iván Washburn MD Attending Provider at Discharge: Iván Washburn MD Primary Care Provider: Marisela Pacheco MD Diagnoses at Discharge Discharge Diagnosis (1) Acute kidney injury superimposed on CKD: Status: Acute (2) Chronic diarrhea: Status: Acute (3) Dehydration: Status: Acute (4) Warfarin anticoagulation: Status: Chronic (5) Afib: Status: Chronic Qualifiers: Atrial fibrillation type: unspecified chronic Qualified Code(s): I48.20 - Chronic atrial fibrillation, unspecified (6) Diabetes: Status: Chronic Qualifiers: Diabetes mellitus type: type 2 Diabetes mellitus oysterman insulin use: with oysterman use Diabetes mellitus complication status: with kidney complications Diabetes mellitus complication detail: with chronic kidney disease Chronic kidney disease stage: stage 3 (moderate) Chronic kidney disease stage 3 subtype: stage 3a (GFR 45-59) Qualified Code(s): E11.22 - Type 2 diabetes mellitus with diabetic chronic kidney disease; N18.31 - Chronic kidney disease, stage 3a; Z79.4 - halfway (current) use of insulin (7) Coronary artery disease: Status: Chronic Qualifiers: Coronary Disease-Associated Artery/Lesion type: bypass graft [place] vs. transplanted heart: [place] heart Associated angina: without angina Qualified Code(s): I25.810 - Atherosclerosis of coronary artery bypass graft(s) without angina pectoris (8) PAD (peripheral artery disease): Status: Chronic (9) Hypertension: Status: Chronic Qualifiers: Hypertension type: primary hypertension Qualified Code(s): I10 - [place] t[place] (primary) hypertension (10) Chronic kidney disease: Status: Chronic Qualifiers: Chronic kidney disease stage: stage 3 (moderate) Chronic kidney disease stage 3 subtype: stage 3a (GFR 45-59) Qualified Code(s): N18.31 - Chronic kidney disease, stage 3a (11) Degenerative disc disease: Status: Chronic Qualifiers: Spinal region: lumbar Qualified Code(s): M51.36 - Other intervertebral disc degeneration, lumbar region (12) Decubitus ulcer of buttock, stage 2: Status: Acute Permanent problem details: followed at wound care clinic (13) Dementia: Status: Chronic Qualifiers: Dementia type: vascular dementia Permanent problem details: vascular (14) S/P percutaneous endoscopic gastrostomy (PEG) tube placement: Status: Acute Permanent problem details: history of leak, dysfunction, bleeding around site; replaced 12/[address] Chaves (15) Dysarthria: Status: Acute Reason for Visit Reason for Visit: Diarrhea Brief History: History as per HPI: Mitchel Fishman is a 86 year old male who presented to the emergency room with chief complaint of worsening diarrhea.? History is obtained from patient's .? Mr. Fishman tries to provide history but has chronic dysarthria as well as dementia that limits his ability in this regard.? He has had a PEG tube in place for approximately 15 years due to vocal cord paralysis or what his calls a throat that was noted after a carotid procedure.? He has been on tube feeds predominantly since then.? He takes medications with applesauce but otherwise does not take anything by mouth.? Over the last couple of months he has had increasing frequency and amount of diarrhea.? He has been followed by primary care provider.? When patient asked to go to the bathroom he has to go very quickly.? He has been having more than 10 sometimes more than 15 episodes of diarrhea a day.? Stool is loose and watery.? No blood has been noted.? No mucus has been noted.? No change in stool color.? Not remarkably malodorous in nature.? He takes Osmolite 1.2 kcal 3 times a day with free water flushes.? No recent formula changes.? Not had nausea or vomiting.? He does complain of pain in his abdomen at times but not consistently.? Not really having fecal incontinence or diarrhea interrupting sleep.? He has noted increased air release around his feeding tube.? Both him and his are concerned about this as he has had a Michael button balloon burst previously.? Along with the increasing frequency of diarrhea, patient has had gradual weight loss of maybe 20 pounds.? He is not very active.? He has stage II decubiti on the buttocks that have been followed at wound care clinic.? He has had a KILN PULLER at home and a wound care nurse assisting in care.? While the wounds have continued to improve, the worsening diarrhea has made management more difficult.? From what I can gather speaking with Mrs. Fishman, the KILN PULLER indicated that the diarrhea was getting to the point that Mr. Fishman was getting dehydrated and this was becoming more serious.? Situation was discussed with primary care provider, Tara Arnold.? She recommended patient come to the emergency room for further evaluation.? With tube feedings they generally do some free water flushes.? Attempts to increase the free water flushes over the last couple of weeks to keep up with volume losses have not been successful.? Patient's denies any recent antibiotic use for the last several months.? Only new medication was addition of levothyroxine in June of this year.? All other medications are unchanged.? No one else has been having diarrhea.? No change in water source.? No urinary complaints.? In the emergency room patient was found to have evidence of dehydration with increased BUN and creatinine as well as potassium level.? He was given some IV fluids.? Request was made for admission.? Since admission to the floor, patient has had multiple episodes of large-volume loose brown watery stool within a short period of time.? He indicates that this is similar to how it has gotten at home.? They have not tried any antimotility agents or other potential remedies at home.? Has not had a colonoscopy since they moved here approximately 5 years ago and suspect it was longer since last was performed.? Hospital Course Hospital Course Patient was admitted to the hospital for further evaluation and management of chronic diarrhea. On admission he was also found to be in acute kidney injury. He was started on IV hydration. For further evaluation of chronic diarrhea infectious etiology was ruled out by negative stool studies. CT abdomen pelvis was done which ruled out any colitis or acute abnormality. For possible allergies to tube feeds even though he has been on the same tube feeds for quite a few years dietitian consult was done and his tube feeds gradually was changed from bolus feeds to continuous pump feeds. Patient tolerated transition well and has been up to 50 cc of his goal rate without any complications. Patient was started on loperamide on as-needed basis along with baclofen as antimotility agent. Patient has been discharged in hemodynamically stable condition once HANSEL has resolved on pump tube feeds to be done at 50 cc/h for 12 hours along with loperamide 2 g 4 times as needed, baclofen 5 mg 3 times daily with advised to follow-up with his outpatient primary care provider within next 1 week for repeat BMP. He is also advised to follow-up with his outpatient surgeon for possible colonoscopy to rule out any mass, malignancy or inflammatory bowel disease. Care plan was discussed in detail with patient's . All the questions were answered. His hospitalization was otherwise unremarkable. Physical Exam Narrative: Constitutional: Awake alert, chronically ill-appearing, speech is difficult to understand, patient appears competent in his report of information despite much of the information not being fully accurate HEENT: Extraocular movements are intact grossly, nasopharynx is clear, oropharynx with dry mucous membranes Neck: Supple Respiratory: Clear to auscultation bilaterally Cardiovascular: Irregular, pacemaker intact, capillary refill noted but slightly prolonged distal extremities Abdomen: Soft, slightly rounded, no diffuse tenderness, rebound or guarding, PEG tube intact in the left mid abdomen. [address] Has some chronic skin changes underneath the dressing with protective salve in place around the opening. Evidence of some minor drainage around the opening. No gross bleeding Extremities: Chronic stasis changes are apparent, no pitting edema, no calf tenderness Skin: Scattered bruising noted on the abdomen in particular Neuro: Dysarthric, when he talks slower I can understand probably 60 to 70% of his speech but if he talks fast I can only understand about 30%. He follows simple commands well. He was able to follow conversation that I had with his and responded at times appropriately such as pointing out towards the end of the conversation 1 thing that his had not shared with us. Moves all extremities. Muscle wasting is evident and generally weak. Psych: Normal affect. Discharge Data Studies Completed and Pending Completed Studies During Hospitalization Category Date Time Status CT abdomen pelvis wo con [id number] Routine Cat Scan 12/07/21 13:21 Completed XR KUB portable [id number] Urgent Exams 12/06/21 16:58 Completed Pending at discharge Category Date Time Status Calprotectin Fecal Routine Lab 12/07/21 10:39 Ordered Prothrombin Time INR AM LABS Lab 12/10/21 04:00 Ordered Radiology Impressions KUB X-Ray 12/06/21 16:58 IMPRESSION: 1. No evidence for bowel obstruction or perforation. 2. Incidental/nonacute findings are listed in the report. Abdomen/Pelvis CT 12/07/21 13:21 IMPRESSION: 1. Stranding surrounding a fat lobule adjacent to the descending colon suspicious for subtle epiploic appendagitis. 2. Patchy hazy opacity in the right lower lobe that may reflect developing pneumonia. 3. Heavy atherosclerotic calcification involving the abdominal aorta and its branches. There are curvilinear calcifications within the aortic lumen. This could reflect age-indeterminate dissection. There is no evidence of rupture. If clinically concerned for dissection, recommend CTA. 4. 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 5. Cardiomegaly with coronary artery disease. 6. Calcification in the aortic valve. COMMENTS: Consistent with the [employer]'s Incidental Findings Committee white paper (J Am Montez Radiol 2018): Any incidental renal lesion less than 1 cm or classified as too small to characterize, or any incidental cystic renal lesion characterized as simple-appearing, is likely benign. No follow-up imaging is recommended for these lesions per consensus recommendations based on imaging criteria. ADDENDUM: 12/07/21 1447 Findings discussed with IVÁN WASHBURN at 12/07/2021 2:44 PM CDT. There is mild prominence of the wall of the sigmoid colon which could reflect a mild colitis. A PEG tube appears appropriately positioned. Laboratory Results WBC 6.6 10^3/uL (4.0-10.0) 12/07/21 03:24 RBC 3.23 10^6/uL (4.1-5.3) L 12/07/21 03:24 Hgb 11.1 g/dL (11.7-16.6) L 12/07/21 03:24 Hct 33.7 % (42.0-52.0) L 12/07/21 03:24 MCV 104.3 fl (80-94) H 12/07/21 03:24 MCH 34.4 pg (28.0-34.0) H 12/07/21 03:24 MCHC 32.9 g/dL (30.0-36.0) 12/07/21 03:24 RDW 13.9 % (12.1-15.1) 12/07/21 03:24 Plt Count 82 10^3/cmm (130-400) L 12/07/21 03:24 MPV 10.2 fL (7.4-10.4) 12/07/21 03:24 Neut % (Auto) 50.2 % 12/07/21 03:24 Lymph % (Auto) 39.8 % 12/07/21 03:24 Jerome % (Auto) 7.6 % 12/07/21 03:24 Eos % (Auto) 1.7 % 12/07/21 03:24 Baso % (Auto) 0.5 % 12/07/21 03:24 Neut # (Auto) 3.32 10^3/uL (1.8-7.7) 12/07/21 03:24 Lymph # (Auto) 2.6 10^3/uL (0.8-4.8) 12/07/21 03:24 Jerome # (Auto) 0.5 10^3/uL (0.2-0.9) 12/07/21 03:24 Eos # (Auto) 0.1 10^3/uL (0.0-0.8) 12/07/21 03:24 Baso # (Auto) 0.0 10^3/uL (0.0-0.1) 12/07/21 03:24 Nucleated RBC % (auto) 0 % 12/07/21 03:24 Nucleated RBCs # 0.0 /100WBC 12/07/21 03:24 ESR 15 mm/hr (0-10) H 12/07/21 12:30 PT 23.90 SECONDS (12.1-14.9) H 12/09/21 03:51 INR 2.10 (0.8-1.2) H 12/09/21 03:51 Sodium 136 mmol/L (136-145) 12/09/21 03:51 Potassium 4.2 mmol/L (3.5-5.1) 12/09/21 03:51 Chloride 103 mmol/L (98-107) 12/09/21 03:51 Carbon Dioxide 24 mmol/L (22-29) 12/09/21 03:51 Anion Gap 13.2 (5-19) 12/09/21 03:51 BUN 31 mg/dL (8-23) H 12/09/21 03:51 Creatinine 0.9 mg/dL (0.7-1.2) 12/09/21 03:51 GFR Calculation Not Reportable 12/09/21 03:51 Glucose 130 mg/dL (65-115) H 12/09/21 03:51 POC Glucose 142 mg/dL (70-110) H 12/09/21 10:58 Estimat Average Glucose 100 12/08/21 03:10 Hemoglobin A1c 5.1 % (4.0-6.0) 12/08/21 03:10 Calculated Osmolality 290 mOsm/kg (285-295) 12/09/21 03:51 Lactate 0.8 mmol/L (0.5-2.2) 12/08/21 03:10 Calcium 9.0 mg/dL (8.5-10.5) 12/09/21 03:51 Magnesium 2.4 mg/dL (1.7-2.3) H 12/06/21 17:17 Iron 53 ug/dL (59-158) L 12/07/21 03:24 TIBC 253 mcg/dl 12/07/21 03:24 % Saturation 20.9 % (20-50) 12/07/21 03:24 Unsat Iron Binding 200 ug/dL (112-347) 12/07/21 03:24 Total Bilirubin 0.6 mg/dL (0.15-1.2) 12/09/21 03:51 AST 19 U/L (0-40) 12/09/21 03:51 ALT 10 U/L (0-41) 12/09/21 03:51 Alkaline Phosphatase 79 IU/L (40-130) 12/09/21 03:51 Troponin T Gen 5 ng/L 27 ng/L (0-15) H 12/07/21 03:24 C-Reactive Protein 10.2 mg/L (0.0-4.9) H 12/07/21 03:24 Total Protein 6.2 g/dL (6.6-8.7) L 12/09/21 03:51 Albumin 3.6 g/dL (3.5-5.2) 12/09/21 03:51 Globulin 2.6 g/dL (1.3-4.6) 12/09/21 03:51 Triglycerides 140 mg/dL (0-150) 12/08/21 03:10 Cholesterol 114 mg/dL (0-200) 12/08/21 03:10 LDL Cholesterol, Calc 55 mg/dL (50-129) 12/08/21 03:10 Total VLDL Cholesterol 28 mg/dL (0-30) 12/08/21 03:10 HDL Cholesterol 31 mg/dL (60-100) L 12/08/21 03:10 Cholesterol/HDL Ratio 3.68 mg/dL (1.0-5.00) 12/08/21 03:10 Lipase 58 U/L (13-60) 12/06/21 17:17 Vitamin B12 292 pg/mL (232-1245) 12/07/21 03:24 Folate 13.1 ng/mL (4.5-32.2) 12/07/21 12:30 Procalcitonin 0.10 ng/mL (0-0.5) 12/07/21 03:24 TSH 2.89 uIU/mL (0.27-4.20) 12/07/21 03:24 Urine Color Yellow (Yellow) 12/06/21 17:50 Urine Appearance Clear (CLEAR) 12/06/21 17:50 Urine pH 7 (5-7) 12/06/21 17:50 Ur Specific [place] 1.005 (1.005-1.030) 12/06/21 17:50 Urine Protein Neg (Negative) 12/06/21 17:50 Urine Glucose (UA) Norm (Normal) 12/06/21 17:50 Urine Ketones Negative (Negative) 12/06/21 17:50 Urine Blood Neg (Negative) 12/06/21 17:50 Urine Nitrate Negative (Negative) 12/06/21 17:50 Urine Bilirubin Neg (Negative) 12/06/21 17:50 Urine Urobilinogen Norm mg/dL (Negative) 12/06/21 17:50 Ur Leukocyte Esterase Negative (Negative) 12/06/21 17:50 Valproic Acid 43.2 ug/mL (50-100) L 12/06/21 17:17 Hepatitis A IgM Ab Non-reactive (Nonreactive) 12/07/21 12:30 Hep Bs Antigen Non-reactive (Nonreactive) 12/07/21 12:30 Hep Bs Antibody > 1000.0 (11.5-1000) H 12/07/21 12:30 Hep B Core Total Ab Reactive (Nonreactive) H 12/07/21 12:30 Hepatitis C Antibody Non-reactive (Nonreactive) 12/07/21 12:30 HIV 1&2 Ab & HIV 1 Ag Non-reactive (Non-Reactiv) 12/07/21 12:30 HIV 1&2 Antibody Non-reactive (Non-Reactiv) 12/07/21 12:30 Vitals Last Vital Signs Temp 97.5 F L 06/19/22 07:48 Pulse 75 12/09/21 07:48 Resp 20 H 12/09/21 07:48 BP 158/65 12/09/21 07:48 Pulse Ox 97 12/09/21 07:48 Discharge Plan Discharge Patient Disposition: Home Health Service Condition: Stable Prescriptions: New loperamide 1 mg/7.5 mL Liquid 2 mg PO QID PRN (Reason: Diarrhea) Qty: 300 0RF baclofen 10 mg Tablet 5 mg PO Q8H 30 Days Qty: 45 0RF metoclopramide HCl [Reglan] 5 mg tablet 5 mg PO DAILY Qty: 30 0RF Continued donepezil 10 mg tablet 10 mg PO BEDTIME 0RF valproic acid (as sodium salt) 250 mg/5 mL (5 mL) solution 250 mg PO BID 0RF rosuvastatin 40 mg tablet 20 mg PO BEDTIME 0RF levothyroxine 25 mcg capsule 25 mcg PO QAM 0RF insulin glargine [Lantus U-100 Insulin] 100 unit/mL Solution 30 unit SUBCUT QAM 0RF isosorbide mononitrate 30 mg Tablet Extended Release 24 Hr 30 mg PO QAM 0RF allopurinol 100 mg Tablet 200 mg PO QAM 0RF citalopram 20 mg Tablet 20 mg PO QAM 0RF warfarin 5 mg Tablet See Rx Instructions .ROUTE .COMPLEX 0RF Rx Instructions: 2.5mg SUN, TUE, THUR, SAT 5mg MON, FRI, FRI lisinopril 5 mg Tablet 2.5 mg PO QAM 0RF metoprolol succinate 25 mg Tablet Extended Release 24 Hr 12.5 mg PO QAM 0RF Discontinued hydrochlorothiazide 12.5 mg capsule 12.5 mg PO DAILY 0RF Discharge Orders: Discharge Order (Routine); Ordered 12/09/21 Ordered By: Iván Washburn Other Ambulatory Orders: DME: Miscellaneous (Order) Location: None Selected Ordered By: Iván Washburn DME: Wheelchair (Order) Location: None Selected Ordered By: Iván Washburn Referrals: Dayron Chaves MD [Physician] - 12/26/21 8:35 am Marisela Pacheco MD [Primary Care Provider] - Discharge Diet: Start new tube feeds as directed Discharge Activity: Resume usual activity Patient Instructions: Opioid Safety Activity Restrictions/Additional Instructions: Stop nucleate. Schedule agitated in detail once feeding pump is available at home. Till then we can continue giving bolus feeds as before. You can give loperamide at least 6 times a day on as-needed basis for more than 5 bowel movements a day. Baclofen and metoclopramide as a new medications. Do not give hydrochlorothiazide going forward. Please follow-up with a primary care provider within next 1 week for repeat BMP. You have appointment with Dr. Chaves office on December 26 for scheduling colonoscopy as an outpatient to rule out mass, malignancy or inflammatory bowel disease. Discharge Attestations Time Spent in Discharge Care*: greater than 30 min Specific Discharge Activities: educating and/or supporting family/caregiver, discussing with pcp/other providers, discussing with foster care case manager/social work assistant s/dc planners, documenting/other paperwork and evaluating patient/reviewing data Status at Discharge: Cognitive status at discharge: moderately impaired cognition , Behavioral status at discharge: cooperative , Functional status at discharge: bed bound , Overall status at discharge: patient is back to baseline Quality Metrics Clinical Quality Measures [ No reported AMI, CVA or VTE this stay] Coding Level of Care Code Acute [facility] FW DC note Diagnoses Acute kidney injury superimposed on CKD N17.9; N18.9 Chronic diarrhea K52.9 Dehydration E86.0 Warfarin anticoagulation Z79.01 Afib I48.20 Atrial fibrillation type: unspecified chronic Diabetes E11.22; N18.31; Z79.4 Diabetes mellitus type: type 2 Diabetes mellitus intermediate insulin use: with intermediate use Diabetes mellitus complication status: with kidney complications Diabetes mellitus complication detail: with chronic kidney disease Chronic kidney disease stage: stage 3 (moderate) Chronic kidney disease stage 3 subtype: stage 3a (GFR 45-59) Coronary artery disease I25.810 Coronary Disease-Associated Artery/Lesion type: bypass graft [place] vs. transplanted heart: [place] heart Associated angina: without angina PAD (peripheral artery disease) I73.9 Hypertension I10 Hypertension type: primary hypertension Chronic kidney disease N18.31 Chronic kidney disease stage: stage 3 (moderate) Chronic kidney disease stage 3 subtype: stage 3a (GFR 45-59) Degenerative disc disease M51.36 Spinal region: lumbar Decubitus ulcer of buttock, stage 2 L89.302 Dementia F03.90 Dementia type: vascular dementia S/P percutaneous endoscopic gastrostomy (PEG) tube placement Z93.1 Dysarthria R47.1
[2021-12-09] MEDS: warfarin 2.5 mg Tablet PO (14:41)
--- NOTE | 2021-12-09 16:00 | PC.NURSE ---
DISCHARGE PAPERWORK GONE OVER WITH PT AND WHO IS PRESENT AT BEDSIDE. ALL QUESTIONS ANSWERED. EDUCATION WAS GIVEN ESPECIALLY TO THE ON HOW TO WORK AND USE THE KANGAROO PUMP. WRITTEN INSTRUCTIONS WERE ALSO PROVIDED TO THE . THE SUCCESSFUL TAUGHT BACK TO THIS NURSE HOW TO USE THE KANGAROO PUMP. IF ANY QUESTIONS ARISE WHENEVER SHE RECEIVES THE KANGAROO PUMP THE FLOORS NUMBER WAS GIVEN TO THE PTS SO SHE COULD CALL AND WE COULD WALK HER THROUGH HOW TO USE AND PROGRAM THE PUMP. IV REMOVED. PT TOLERATED WELL. CATHETER TIP INTACT. THE AID IS ASSISTING PT IN CHANGING AND WHEELING HIM OUT TO THEIR VEHICLE.
[2021-12-09 16:38] VITALS: BP 123/67; PULSE 71; RESP 15; TEMP 36.4; O2SAT 97
== END 2021-12-09 16:39 | disposition home health service (06) | DRG 392 ==
LOC: ER 18:15 → MEDSURG 20:13
PROVIDERS: Emergency Medicine; Hospitalist; Admitting Provider Student in an Organized Health Care Education/Training Program; Emergency Provider Student in an Organized Health Care Education/Training Program; PCP Family Medicine; Visit Provider Student in an Organized Health Care Education/Training Program
DX: K52.9 Noninfective gastroenteritis and colitis, unspecified (principal); N17.9 Acute kidney failure, unspecified; I48.20 Chronic atrial fibrillation, unspecified; E11.22 Type 2 diabetes mellitus with diabetic chronic kidney disease; I12.9 Hypertensive chronic kidney disease with stage 1 through stage 4 chronic kidney disease, or unspecified chronic kidney disease; N18.31 Chronic kidney disease, stage 3a; E86.0 Dehydration; D69.6 Thrombocytopenia, unspecified; R19.5 Other fecal abnormalities; L89.322 Pressure ulcer of left buttock, stage 2; L89.312 Pressure ulcer of right buttock, stage 2; E87.5 Hyperkalemia; R47.1 Dysarthria and anarthria; F01.50 Vascular dementia, unspecified severity, without behavioral disturbance, psychotic disturbance, mood disturbance, and anxiety; D75.89 Other specified diseases of blood and blood-forming organs; R79.89 Other specified abnormal findings of blood chemistry; E78.5 Hyperlipidemia, unspecified; E11.51 Type 2 diabetes mellitus with diabetic peripheral angiopathy without gangrene; J38.00 Paralysis of vocal cords and larynx, unspecified; I25.10 Atherosclerotic heart disease of native coronary artery without angina pectoris; Z93.1 Gastrostomy status; Z95.0 Presence of cardiac pacemaker; Z79.4 Long term (current) use of insulin; Z95.1 Presence of aortocoronary bypass graft; Z79.01 Long term (current) use of anticoagulants; Z87.891 Personal history of nicotine dependence
CPT/HCPCS: 36415; 36416; 74018; 74176; 80048; 80053; 80061; 80164; 81003; 82274; 82607; 82746; 82962; 83036; 83540; 83550; 83605; 83630; 83690; 83735; 84145; 84443; 84484; 85025; 85610; 85651; 86140; 86705; 86706; 86709; 86803; 87340; 87493; 87506; 87806; 93005; 96372; J1815 ×2; J2765; J3420; J7030

== ENCOUNTER → 2021-12-17 14:07 | Outpatient (BNVA) | payer OTHER, MEDICARE, SELFPAY | PROVIDERS: PCP Family Medicine; Visit Provider Thoracic Surgery (Cardiothoracic Vascular Surgery) | DX: I96 Gangrene, not elsewhere classified (principal); L89.302 Pressure ulcer of unspecified buttock, stage 2 | CPT/HCPCS: 99212 ==

== ENCOUNTER 2021-12-21 | Outpatient (RCR) | payer OTHER, MEDICARE, SELFPAY | END 2022-01-20 23:59 | disposition home or self-care (01) | LOC: SST | PROVIDERS: PCP Family Medicine; Referring Provider Family Medicine; Visit Provider Family Medicine | DX: K94.20 Gastrostomy complication, unspecified (principal); I69.391 Dysphagia following cerebral infarction; I69.322 Dysarthria following cerebral infarction; R13.10 Dysphagia, unspecified | CPT/HCPCS: 43762; 92523; 92607; 92608; 99213 ==

== ENCOUNTER → 2021-12-26 08:26 | Outpatient (BNVA) | payer OTHER, MEDICARE, SELFPAY | PROVIDERS: PCP Family Medicine; Visit Provider Surgery | DX: K52.9 Noninfective gastroenteritis and colitis, unspecified (principal); K94.20 Gastrostomy complication, unspecified | CPT/HCPCS: 99213 ==

== ENCOUNTER 2021-12-27 08:20 | Outpatient (CLI) | payer OTHER, MEDICARE, SELFPAY | END 2021-12-27 08:21 | disposition home or self-care (01) | PROVIDERS: PCP Family Medicine; Visit Provider Surgery | DX: R19.7 Diarrhea, unspecified (principal) | CPT/HCPCS: 83630; 87177; 87209; 87493; 87506 ==

== ENCOUNTER → 2021-12-31 13:05 | Outpatient (BNVA) | payer OTHER, MEDICARE, SELFPAY | PROVIDERS: PCP Family Medicine; Visit Provider Thoracic Surgery (Cardiothoracic Vascular Surgery) | DX: I96 Gangrene, not elsewhere classified (principal); L89.302 Pressure ulcer of unspecified buttock, stage 2 | CPT/HCPCS: 97597 ==

== ENCOUNTER → 2022-01-14 12:59 | Outpatient (BNVA) | payer OTHER, MEDICARE, SELFPAY | PROVIDERS: PCP Family Medicine; Visit Provider Thoracic Surgery (Cardiothoracic Vascular Surgery) | DX: I96 Gangrene, not elsewhere classified (principal); L89.302 Pressure ulcer of unspecified buttock, stage 2; L89.322 Pressure ulcer of left buttock, stage 2 | CPT/HCPCS: 99212 ==

== ENCOUNTER → 2022-01-28 13:08 | Outpatient (BNVA) | payer OTHER, MEDICARE, SELFPAY | PROVIDERS: PCP Family Medicine; Visit Provider Thoracic Surgery (Cardiothoracic Vascular Surgery) | DX: I96 Gangrene, not elsewhere classified (principal); L89.322 Pressure ulcer of left buttock, stage 2; L89.302 Pressure ulcer of unspecified buttock, stage 2 | CPT/HCPCS: 99213 ==

== ENCOUNTER → 2022-02-04 12:58 | Outpatient (BNVA) | payer OTHER, MEDICARE, SELFPAY | PROVIDERS: PCP Family Medicine; Visit Provider Thoracic Surgery (Cardiothoracic Vascular Surgery) | DX: Z09 Encounter for follow-up examination after completed treatment for conditions other than malignant neoplasm (principal) | CPT/HCPCS: 99212 ==

== ENCOUNTER → 2022-02-18 14:46 | Outpatient (BNVA) | payer OTHER, MEDICARE, SELFPAY | PROVIDERS: PCP Family Medicine; Visit Provider Thoracic Surgery (Cardiothoracic Vascular Surgery) | DX: L89.319 Pressure ulcer of right buttock, unspecified stage (principal); L89.329 Pressure ulcer of left buttock, unspecified stage | CPT/HCPCS: 99213 ==

== ENCOUNTER 2022-02-27 09:29 | Outpatient (CLI) | payer OTHER, SELFPAY ==
--- NOTE | 2022-02-27 09:38 | FL_ITS ---
WS: [id number] Barium enema, 02/27/2022 Clinical Data: chronic diarrhea Comparison: None. Fluoroscopy time: 2min [id number] # of spot films: 9 Findings: The preliminary film shows air in the small bowel and colon. There is a gastrostomy tube overlying th e left upper quadrant. There are pacemaker wires and midline sternotomy sutures. There are vascular c alcifications. Degenerative change of the lumbar vertebral bodies is noted. The barium was introduced in a retrograde fashion to fill the entire colon. The patient had moderate spasm and evacuated some of the barium. There are numerous diverticula in the descending colon and si gmoid area. No polyps or masses were seen. The proximal colon showed no abnormalities. The haustral p attern was normal. The cecum was filled. The ileocecal valve was outlined and the appendix refluxed. There is no terminal ileum reflux. The post evacuation film was not remarkable. FL/FL barium enema [id number] Impression: 1. Small diverticula and spasm of the descending colon and sigmoid colon. 2. Negative for polyps or masses.
== END 2022-02-27 09:30 | disposition home or self-care (01) ==
PROVIDERS: PCP Family Medicine; Visit Provider Surgery
DX: K52.9 Noninfective gastroenteritis and colitis, unspecified (principal); K57.30 Diverticulosis of large intestine without perforation or abscess without bleeding
CPT/HCPCS: 74270

== ENCOUNTER 2022-02-28 13:35 | Outpatient (CLI) | payer OTHER, SELFPAY ==
--- NOTE | 2022-02-28 13:47 | US_ITS ---
WS: [id number] RENAL ULTRASOUND HISTORY: CHRONIC KIDNEY DZ COMPARISON: 09/22/2018 TECHNIQUE: 2-D and color Doppler imaging of the kidney submitted. Right kidney: 11.2 cm x 5.7 cm x 5.6 cm. Normal size kidney. There is mild increased echogenicity and poor cortical medullary differentiation. Possible cortical cyst mid kidney measuring 8 x 10 x 9 mm. Very poorly visualized due to body habitu s. There is no obstruction. Left kidney: 12.3 cm x 6.5 cm x 5.9 cm. Normal size kidney. The entire kidney is very difficult to visualize due to body habitus. There is in creased echogenicity throughout the kidney. No obstruction or mass identified. Simple cyst in the mid kidney measures 21 x 22 x 20 mm. Aorta: Not visualized. Urinary Bladder: Nondistended. US/US renal BI* [id number] IMPRESSION: 1. Normal size kidneys with no obstruction. 2. Mild chronic medical renal disease. 3. Small bilateral renal cysts.
== END 2022-02-28 13:36 | disposition home or self-care (01) ==
PROVIDERS: PCP Family Medicine; Visit Provider Internal Medicine Nephrology
DX: N18.9 Chronic kidney disease, unspecified (principal); N28.1 Cyst of kidney, acquired
CPT/HCPCS: 76770

== ENCOUNTER → 2022-03-04 14:01 | Outpatient (BNVA) | payer OTHER, SELFPAY | PROVIDERS: PCP Family Medicine; Visit Provider Nurse Practitioner Family | DX: K52.9 Noninfective gastroenteritis and colitis, unspecified (principal) | CPT/HCPCS: 99212; 99213 ==

== ENCOUNTER → 2022-03-11 13:19 | Outpatient (BNVA) | payer OTHER, SELFPAY | PROVIDERS: PCP Family Medicine; Visit Provider Nurse Practitioner Family | DX: I96 Gangrene, not elsewhere classified (principal); L89.312 Pressure ulcer of right buttock, stage 2 | CPT/HCPCS: 99213 ==

== ENCOUNTER → 2022-03-25 13:05 | Outpatient (BNVA) | payer OTHER, SELFPAY | PROVIDERS: PCP Family Medicine; Visit Provider Thoracic Surgery (Cardiothoracic Vascular Surgery) | DX: I96 Gangrene, not elsewhere classified (principal); L89.312 Pressure ulcer of right buttock, stage 2 | CPT/HCPCS: 99212 ==

== ENCOUNTER 2022-04-08 06:59 | Outpatient (CLI) | payer OTHER, SELFPAY ==
--- NOTE | 2022-04-08 | US_ITS ---
WS: [id number] RIGHT UPPER QUADRANT ULTRASOUND HISTORY: Abnormal LABS, RUQ PAIN COMPARISON: CT 12/07/2021 Liver: 14.6 cm in length. Normal size liver. Mild coarse echotexture. Surface of the liver is very sl ightly irregular. No mass or nodules. Portal Vein: Mildly pulsatile flow but hepatopetal flow is present. Gallbladder: Normally distended gallbladder with no stones or wall thickening. CBD: 0.3 cm Pancreas: Not very well visualized. Head and tail are obscured by bowel gas. The body is negative. Right kidney: 11.4 cm in length. Normal size and echogenicity. No hydronephrosis or mass. Aorta and IVC: Unremarkable abdominal aorta and IVC. No ascites. US/US abdomen limited [id number] IMPRESSION: 1. Normal gallbladder. 2. Normal size liver with coarse echotexture and possible early changes of cir rhosis. 3. Poorly visualized pancreas.
== END 2022-04-08 07:00 | disposition home or self-care (01) ==
LOC: RAD 07:01
PROVIDERS: PCP Family Medicine; Visit Provider Family Medicine
DX: R79.89 Other specified abnormal findings of blood chemistry (principal); R10.11 Right upper quadrant pain; I96 Gangrene, not elsewhere classified; L89.312 Pressure ulcer of right buttock, stage 2; L89.322 Pressure ulcer of left buttock, stage 2
CPT/HCPCS: 76705; 97597; 97598

== ENCOUNTER → 2022-04-15 12:54 | Outpatient (BNVA) | payer OTHER, SELFPAY | PROVIDERS: PCP Family Medicine; Visit Provider Thoracic Surgery (Cardiothoracic Vascular Surgery) | DX: I96 Gangrene, not elsewhere classified (principal); L89.312 Pressure ulcer of right buttock, stage 2; L89.322 Pressure ulcer of left buttock, stage 2 | CPT/HCPCS: 97597 ==

== ENCOUNTER → 2022-04-22 13:30 | Outpatient (BNVA) | payer OTHER, SELFPAY | PROVIDERS: PCP Family Medicine; Visit Provider Thoracic Surgery (Cardiothoracic Vascular Surgery) | DX: I96 Gangrene, not elsewhere classified (principal); L89.312 Pressure ulcer of right buttock, stage 2; L89.322 Pressure ulcer of left buttock, stage 2 | CPT/HCPCS: 99212 ==

== ENCOUNTER → 2022-04-29 12:57 | Outpatient (BNVA) | payer OTHER, SELFPAY | PROVIDERS: PCP Family Medicine; Visit Provider Thoracic Surgery (Cardiothoracic Vascular Surgery) | DX: I96 Gangrene, not elsewhere classified (principal); L89.312 Pressure ulcer of right buttock, stage 2; L89.322 Pressure ulcer of left buttock, stage 2 | CPT/HCPCS: 99212 ==

== ENCOUNTER 2022-05-09 10:35 | Emergency (ER) | payer OTHER, SELFPAY ==
[2022-05-09 10:55] VITALS: BMI 20.3
--- NOTE | 2022-05-09 11:03 | ECG_ITS ---
[facility] Test Date: 2022-05-09 Pat Name: Mitchel Fishman Department: Room: Gender: Male Freezer Assistant: : 1935 Requested By: Lenny Baig Order Number: [id number] Tracy MD: Axel Machuca M.D. Measurements Intervals [place] Rate: 89 P: 0 AR: 0 QRS: 43 QRSD: 97 T: 64 QT: 379 QTc: 464 Interpretive Statements ATRIAL FIBRILLATION NONSPECIFIC ST & T-WAVE ABNORMALITY Compared to ECG 12/07/2021 10:22:59 T-wave abnormality now present Ventricular-paced complex(es) or rhythm no longer present ST (T wave) deviation no longer present Electronically Signed On 05-10-2022 6:26:24 PRODUCTION STAGE MANAGER by Axel Machuca M.D. [id number]
[2022-05-09 11:15] LABS: Basophils # 0.1 10^3/uL (0.0-0.1); Basophils % 0.3 %; Hematocrit 44.8 % (42.0-52.0); Hemoglobin 13.6 g/dL (11.7-16.6); Lymphocytes # 3.1 10^3/uL (0.8-4.8); Lymphocytes % 21.4 %; Mean Corpuscular HGB Conc 30.4 g/dL (30.0-36.0); Mean Corpuscular Hemoglobin 32.3 pg (28.0-34.0); Mean Corpuscular Volume 106.4 fl (80-94); Mean Platelet Volume 10.7 fL (7.4-10.4); Monocytes # 1.2 10^3/uL (0.2-0.9); Monocytes % 8.5 %; Neutrophils # 10.08 10^3/uL (1.8-7.7); Neutrophils % 69.4 %; Nucleated Red Blood Cells % 0 %; Platelet Count 81 10^3/cmm (130-400); Red Blood Count 4.21 10^6/uL (4.1-5.3); Red Cell Distribution Width 16.2 % (12.1-15.1); White Blood Count 14.5 10^3/uL (4.0-10.0)
--- NOTE | 2022-05-09 11:19 | CT_ITS ---
WS: [id number] CT HEAD TECHNIQUE: Noncontrast CT of the head obtained from the skullbase to the vertex. CLINICAL INFORMATION: transient vision loss COMPARISON: CT June 14, 2021 DLP: 1226.[address] scans at [facility] use at least one of these dose optimization techniques: automated e xposure control; mA and/or kV adjustment per patient size (includes targeted exams where dose is matc hed to clinical indication); or iterative reconstruction. FINDINGS: No evidence of intracranial hemorrhage or mass effect. Ventricular system and basal cisterns are quevedo nt. Moderate small vessel changes with moderate parenchymal volume loss. No extra-axial fluid collect ions. No evidence of mass or mass effect. Chronic lacunar infarcts in the LEFT javed radiata extendi ng into the internal capsule unchanged. Tiny chronic lacunar infarct RIGHT caudate. Vascular calcific ation. Paranasal sinuses and mastoid air cells are well aerated. .Normal visualized soft tissues. CT/CT head wo con* [id number] IMPRESSION: 1. No evidence of intracranial hemorrhage or mass effect. 2. Moderate small vessel changes with moderate parenchymal volume loss. 3. Chronic lacunar infarcts in the LEFT javed radiata extending into the inte rnal capsule unchanged. 4. No acute intracranial findings.
--- NOTE | 2022-05-09 11:20 | W.ED.NEUROSD ---
HPI - Neuro Symptoms/Deficit General: Chief Complaint: Neuro Symptoms/Deficit Stated Complaint: [facility], weakness,dehydrated Time Seen by Provider: 05/09/22 10:44 Source: patient and family Mode of arrival: wheelchair History of Present Illness: 86-year-old male presents emergency room after difficult time last night increasing weakness garbled speech some slight disturbances that were transient very confused. Patient has a known history of Parkinson's and some dementia. This all happened overnight. He still is difficult to understand says at this point he is back at his baseline. There is no report of chest pain or shortness of breath. He chronically has diarrhea. He has a pressure sore to the coccyx as well. He also has chronic venous stasis edema which is essentially at his baseline. Onset (ago): hour(s) Timing confirmed by: spouse Location: speech Severity: mild Quality: weak Relieving factors: none Exacerbating factors: none Context: gradual onset Associated symptoms: Reports malaise and weakness; Deny chest pain, cough, diaphoresis, fevers/chills, headache(s), anorexia, nausea, seizures, short of breath, syncope, tingling, vertigo or vomiting Treatments Prior to Arrival: none Review of Systems Const: Reports: malaise; Denies: fever(s), chills or diaphoresis ENMT: Denies: throat pain, ear or mastoid pain, nasal discharge or nasal congestion Card: Reports: edema and swelling of feet/ankles; Denies: chest pain, palpitations, irregular heart rhythm or syncope Resp: Denies: dyspnea, productive cough or non-productive cough GI: Reports: abdominal pain; Denies: nausea or vomiting : Denies: flank pain, dysuria, urinary frequency or urinary urgency Skin/Breast: Denies: rash or pruritus Neuro: Denies: headache(s) or vertigo PFS ED PFSH: Medical History Afib Aphasia Chronic kidney disease Coronary artery disease Degenerative disc disease Dementia vascular Diabetes Dysarthria Glaucoma Gout History of adverse drug reaction reports history of significant reaction to either anesthesia or other perioperative medication that resulted in massive tongue swelling that limited airway and contributed to current dysarthria and PEG dependence History of angiography 09/2018 lower extremities, abdominal aorta - PAD predominantly below the knees, not able to do invasive intervention History of cerebellar stroke History of stress test 12/2020 Hyperlipidemia Hypertension Leaking PEG tube Pacemaker PAD (peripheral artery disease) Warfarin anticoagulation Surgical History (Reviewed 05/09/22 @ 11: by Lenny Jones DO) History of CEA (carotid endarterectomy) History of coronary artery bypass graft History of esophagogastroduodenoscopy (EGD) (~2018) S/P percutaneous endoscopic gastrostomy (PEG) tube placement history of leak, dysfunction, bleeding around site; replaced 12/[address] Chaves Family History (Reviewed 05/09/22 @ 11: by Lenny Jones DO) Mother Stroke Father Heart disease Denies family history of Anesthesia complication Bleeding disorder Social History (Reviewed 05/09/22 @ 11: by Lenny Jones DO) Smoking and tobacco status: never smoked Alcohol intake: former Former alcohol use details: Not in more than 30 years Household members: spouse NIH stroke score NIHSS: Level Of Consciousness - 1a: 1 Level Of Consciousness Questions - 1b: Neither Correct Level Of Consciousness Commands - 1c: Both Correct Best Gaze - 2: Normal Visual Yee - 3: No Visual Loss Facial Palsy - 4: Normal Motor Arm Right - 5: No Drift Motor Arm Left - 5: No Drift Motor Leg Right - 6: No Drift Motor Leg Left - 6: No Drift Limb Ataxia - 7: Absent Sensory - 8: Normal Best Language - 9: No Aphasia Dysarthia - 10: Severe Dysarthia Extinction And Inattention - 11: 0 Score: Total Score: 5 Physical Exam Const: GENERAL APPEARANCE: cooperative and comfortable ORIENTATION/CONSCIOUSNESS: Yes awake HENMT: COMMON NORMALS: normocephalic, atraumatic and hearing grossly normal bilaterally HEAD & SCALP: normocephalic and atraumatic Eye: COMMON NORMALS: Equal, round and reactive pupils present, EOMs intact bilaterally, conjunctivae normal and no scleral icterus CONJUNCTIVA: Yes conjunctivae normal PUPIL: Yes Equal, round and reactive pupils present Neck/C-Spine: COMMON NORMALS: full ROM, no lymphadenopathy, supple and no JVD Resp: COMMON NORMALS: normal respiratory effort, No retractions, No use of accessory muscles and clear to auscultation bilaterally AUSCULTATION: clear to auscultation bilaterally Cardio: COMMON NORMALS: no JVD, regular rate, regular rhythm and No murmurs present (Cardio) RATE: regular rate RHYTHM: regular rhythm GI: COMMON NORMALS: Soft to palpation and No hepatosplenomegaly present AUSCULTATION: Yes normoactive bowel sounds PALPATION: Yes Soft to palpation, No Tenderness to palpation present (GI), No Guarding due to palpation present (GI) and Yes No hepatosplenomegaly present Extremity: COMMON NORMALS: normal to inspection, capillary refill normal, no clubbing, cyanosis or edema, no calf tenderness and no pedal edema Neuro: OTHER: NIH was 5 however all of his deficits on the NIH score accountable to his dementia and are at baseline Skin: COMMON NORMALS: no rashes or lesions noted GENERAL SKIN EXAM: no rashes or lesions noted MDM - Neuro Symptoms/Deficit Medical Decision Making Work-up unremarkable. Patient is a 71 leukocytosis but no finding of infection urine shows little bit of blood he is on Coumadin. He is not having any acute symptoms of stroke to the extent that he has any points on his NIH score they are associated with his dementia and Parkinson's. His mentions transient loss of vision last night he has normal bilateral vision at this time. We will set him up for an outpatient MRI he is not a candidate for thrombolytics based on age and timing as well as the fact that he has exclusion by his oral anticoagulants. CT of the head and neck was not done because patient does not have adequate NIH score that he would be a candidate for embolectomy. I suspect most of his symptoms are due to his dementia and is developing some sundowning. Medical Records I reviewed the patient's medical records. Lab Data I reviewed the patient's lab results. 05/09/22 11:05 05/09/22 11:[address] 05/09/22 11:19 IMPRESSION: 1. No evidence of intracranial hemorrhage or mass effect. 2. Moderate small vessel changes with moderate parenchymal volume loss. 3. Chronic lacunar infarcts in the LEFT javed radiata extending into the internal capsule unchanged. 4. No acute intracranial findings. Laboratory Results WBC 14.5 10^3/uL (4.0-10.0) H 05/09/22 11:05 RBC 4.21 10^6/uL (4.1-5.3) 05/09/22 11:05 Hgb 13.6 g/dL (11.7-16.6) 05/09/22 11:05 Hct 44.8 % (42.0-52.0) 05/09/22 11:05 MCV 106.4 fl (80-94) H 05/09/22 11:05 MCH 32.3 pg (28.0-34.0) 05/09/22 11:05 MCHC 30.4 g/dL (30.0-36.0) 05/09/22 11:05 RDW 16.2 % (12.1-15.1) H 05/09/22 11:05 Plt Count 81 10^3/cmm (130-400) L 05/09/22 11:05 MPV 10.7 fL (7.4-10.4) H 05/09/22 11:05 Neut % (Auto) 69.4 % 05/09/22 11:05 Lymph % (Auto) 21.4 % 05/09/22 11:05 [place] % (Auto) 8.5 % 05/09/22 11:05 Eos % (Auto) 0.0 % 05/09/22 11:05 Baso % (Auto) 0.3 % 05/09/22 11:05 Neut # (Auto) 10.08 10^3/uL (1.8-7.7) H 05/09/22 11:05 Lymph # (Auto) 3.1 10^3/uL (0.8-4.8) 05/09/22 11:05 [place] # (Auto) 1.2 10^3/uL (0.2-0.9) H 05/09/22 11:05 Eos # (Auto) 0.0 10^3/uL (0.0-0.8) 05/09/22 11:05 Baso # (Auto) 0.1 10^3/uL (0.0-0.1) 05/09/22 11:05 Nucleated RBC % (auto) 0 % 05/09/22 11:05 Nucleated RBCs # 0.0 /100WBC 05/09/22 11:05 Sodium 137 mmol/L (136-145) 05/09/22 11:05 Potassium 5.0 mmol/L (3.5-5.1) 05/09/22 11:05 Chloride 100 mmol/L (98-107) 05/09/22 11:05 Carbon Dioxide 29 mmol/L (22-29) 05/09/22 11:05 Anion Gap 13.0 (5-19) 05/09/22 11:05 BUN 48 mg/dL (8-23) H 05/09/22 11:05 Creatinine 1.3 mg/dL (0.7-1.2) H 05/09/22 11:05 GFR Calculation Not Reportable 05/09/22 11:05 Glucose 96 mg/dL (65-115) 05/09/22 11:05 Calculated Osmolality 296 mOsm/kg (285-295) H 05/09/22 11:05 Calcium 9.9 mg/dL (8.5-10.5) 05/09/22 11:05 Magnesium 2.3 mg/dL (1.7-2.3) 05/09/22 11:05 Total Bilirubin 1.1 mg/dL (0.15-1.2) 05/09/22 11:05 AST 27 U/L (0-40) 05/09/22 11:05 ALT 14 U/L (0-41) 05/09/22 11:05 Alkaline Phosphatase 109 U/L (40-130) 05/09/22 11:05 Creatine Kinase 40 U/L (39-308) 05/09/22 11:05 Total Protein 7.7 g/dL (6.6-8.7) 05/09/22 11:05 Albumin 3.9 g/dL (3.5-5.2) 05/09/22 11:05 Globulin 3.8 g/dL (1.3-4.6) 05/09/22 11:05 Urine Color Yellow (Yellow) 05/09/22 11:05 Urine Appearance Clear (CLEAR) 05/09/22 11:05 Urine pH 7 (5-7) 05/09/22 11:05 Ur Specific [place] 1.005 (1.005-1.030) 05/09/22 11:05 Urine Protein 1+ (Negative) H 05/09/22 11:05 Urine Glucose (UA) Norm (Normal) 05/09/22 11:05 Urine Ketones 1+ (Negative) H 05/09/22 11:05 Urine Blood 3+ (Negative) H 05/09/22 11:05 Urine Nitrate Negative (Negative) 05/09/22 11:05 Urine Bilirubin Neg (Negative) 05/09/22 11:05 Urine Urobilinogen Norm mg/dL (Negative) 05/09/22 11:05 Ur Leukocyte Esterase Negative (Negative) 05/09/22 11:05 Urine RBC 5-10 /hpf (0-2) H 05/09/22 11:05 Urine WBC 0-4 /hpf (0-5) H 05/09/22 11:05 Ur Squamous Epith Cells 0-4 /hpf (0-5) H 05/09/22 11:05 Amorphous Sediment Not Reportable 05/09/22 11:05 Urine Bacteria 1+ /hpf (NONE) H 05/09/22 11:05 Discharge Plan Discharge Patient Disposition: Home Clinical Impression: Dementia, Feeding difficulty, S/P percutaneous endoscopic gastrostomy (PEG) tube placement, Chronic diarrhea, Sundowning, Parkinson disease Condition: Stable Prescriptions: No Action donepezil 10 mg tablet 10 mg PO BEDTIME valproic acid (as sodium salt) 250 mg/5 mL (5 mL) solution 250 mg PO BID rosuvastatin 40 mg tablet 20 mg PO BEDTIME levothyroxine 25 mcg capsule 25 mcg PO QAM insulin glargine [Lantus U-100 Insulin] 100 unit/mL Solution 30 unit SUBCUT QAM isosorbide mononitrate 30 mg Tablet Extended Release 24 Hr 30 mg PO QAM allopurinol 100 mg Tablet 200 mg PO QAM citalopram 20 mg Tablet 20 mg PO QAM warfarin 5 mg Tablet See Rx Instructions .ROUTE .COMPLEX Rx Instructions: 2.5mg SUN, TUE, THUR, SAT 5mg MON, FRI, FRI lisinopril 5 mg Tablet 2.5 mg PO QAM metoprolol succinate 25 mg Tablet Extended Release 24 Hr 12.5 mg PO QAM loperamide 1 mg/7.5 mL Liquid 2 mg PO QID PRN (Reason: Diarrhea) Qty: 300 0RF Reglan 5 mg tablet 5 mg PO DAILY Qty: 30 0RF Discharge Orders: Discharge ED (Routine); Ordered 05/09/22 Ordered By: Lenny Jones Referrals: Marisela Pacheco MD [Primary Care Provider] - Discharge Diet: Usual diet Discharge Activity: Increase activity as tolerated Patient Instructions: Opioid Safety, Pain Management Activity Restrictions/Additional Instructions: You were seen today for an episode of altered mental status overnight. Work-up was unremarkable suspect the symptoms experienced were due to dementia and Parkinson's. Case management will make arrangements for an outpatient MRI. Follow-up with your primary care doctor. 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
[2022-05-09 11:27] LABS: Add Urine Microscopic? YES; Bilirubin Urine Neg (Negative); Blood Urine 3+ (Negative); Glucose Urine UA Norm (Normal); Ketones Urine 1+ (Negative); Leukocyte Esterase Urine Negative (Negative); Nitrate Urine Negative (Negative); Protein Urine 1+ (Negative); Specific Gravity, Urine 1.005 (1.005-1.030); Urine Appearance Clear (CLEAR); Urine Color Yellow (Yellow); Urobilinogen Urine Norm (Negative); pH Urine 7 (5-7)
[2022-05-09 11:28] LABS: Add Urine Culture? No; Bacteria Urine 1+ /hpf; Squamous Epithelial Cell Urine 0-4 /hpf (0-5); WBC Urine 0-4 /hpf (0-5)
[2022-05-09 11:34] LABS: Alanine Aminotransferase 14 U/L (0-41); Albumin Level 3.9 g/dL (3.5-5.2); Alkaline Phosphatase 109 U/L (40-130); Aspartate Amino Transferase 27 U/L (0-40); Blood Urea Nitrogen 48 mg/dL (8-23); Calcium 9.9 mg/dL (8.5-10.5); Carbon Dioxide 29 mmol/L (22-29); Chloride 100 mmol/L (98-107); Creatine Phosphokinase 40 U/L (39-308); Globulin 3.8 g/dL (1.3-4.6); Glucose 96 mg/dL (65-115); Magnesium 2.3 mg/dL (1.7-2.3); Osmolality Calculated 296 mOsm/kg (285-295); Sodium 137 mmol/L (136-145); Total Bilirubin 1.1 mg/dL (0.15-1.2); Total Protein 7.7 g/dL (6.6-8.7)
[2022-05-09] MEDS: sodium chloride 0.9% 1,000 ML 999 ML IV (11:37)
[2022-05-09] MEDS: ondansetron 2 mg/ML SDV 2 mL 4 MG IVP (11:37)
[2022-05-09 12:59] VITALS: BP 120/67; PULSE 68; RESP 16; O2SAT 95
== END 2022-05-09 13:30 | disposition home or self-care (01) ==
PROVIDERS: Emergency Provider Family Medicine; PCP Family Medicine
DX: F05 Delirium due to known physiological condition (principal); G20 Parkinson's disease; F02.80 Dementia in other diseases classified elsewhere, unspecified severity, without behavioral disturbance, psychotic disturbance, mood disturbance, and anxiety; Z93.1 Gastrostomy status; K52.9 Noninfective gastroenteritis and colitis, unspecified; Z79.4 Long term (current) use of insulin; Z79.01 Long term (current) use of anticoagulants; Z95.1 Presence of aortocoronary bypass graft; I12.9 Hypertensive chronic kidney disease with stage 1 through stage 4 chronic kidney disease, or unspecified chronic kidney disease; E11.22 Type 2 diabetes mellitus with diabetic chronic kidney disease; N18.9 Chronic kidney disease, unspecified; I25.10 Atherosclerotic heart disease of native coronary artery without angina pectoris; Z86.73 Personal history of transient ischemic attack (TIA), and cerebral infarction without residual deficits; E78.5 Hyperlipidemia, unspecified; Z95.0 Presence of cardiac pacemaker
CPT/HCPCS: 70450; 80053; 81001; 82550; 83735; 85025; 93005; 96361; 96374; 99285; J2405; J7030

== ENCOUNTER 2022-05-13 07:06 | Inpatient (IN) | payer OTHER, MEDICARE, SELFPAY ==
[2022-05-13] VITALS (10 sets, daily range): BP systolic 134–147; BP diastolic 62–76; PULSE 92–115; RESP 14–18; TEMP 36.3–37.4; O2SAT 79–98; BMI 27.1
--- NOTE | 2022-05-13 08:00 | XRR_ITS ---
PROCEDURE INFORMATION: Exam: XR Right Hip Exam date and time: 05/13/2022 9:08 AM Age: 86 years old Clinical indication: Injury or trauma; Blunt trauma (contusions or hematomas); Injury details: 86-year-old male presents emergency room after a fall complaining of right hip pain. ; Additional info: Fall/pain deformity TECHNIQUE: Imaging protocol: Radiologic exam of the Right hip. Views: 1 view hip with pelvis when performed. COMPARISON: CT abdomen pelvis wo con [id number] 12/07/2021 1:39 PM FINDINGS: Bones/joints: There is a fracture of the right proximal femur in the subcapital position. Pubic rami and acetabulum appear intact. Soft tissues: Unremarkable. Vasculature: Mild vascular calcifications. XR/XR hip RT 2-3V wo/w pel* [id number] IMPRESSION: Subcapital femoral neck fracture.
--- NOTE | 2022-05-13 08:00 | W.ED.EXTPRO ---
HPI - Extremity Problem General: Chief complaint: Extremity Injury, Lower Stated complaint: fall/ r hip/ shortening & rotation Time Seen by Provider: 05/13/22 07:44 Source: patient Mode of arrival: EMS History of Present Illness: 86-year-old male presents emergency room after a fall complaining of right hip pain. Patient is nonverbal has diabetes and some dementia. He is also on warfarin. His is at the bedside and provides history he does not provide any verbal response. His right leg is externally rotated neurovascular is intact. No other apparent injuries abrasions or ecchymosis. mentions he has been falling more often lately he was seen several days ago. There is a concern at that time of a CVA. Is also noticed to have slight leukocytosis but there was no finding of infection. He had increased fluid on his feet. He has been using diuretics and taking potassium. MD Complaint: extremity pain Onset (ago): minute(s) Pain Consistency: constant Location: right and lower extremity (Hip) Review of Systems General: Reports: ROS unobtainable due to mental status (Review of systems in the HPI area from the no further review of system) PFS ED PFSH: Medical History Afib Aphasia Chronic kidney disease Coronary artery disease Degenerative disc disease Dementia vascular Diabetes Dysarthria Glaucoma Gout History of adverse drug reaction reports history of significant reaction to either anesthesia or other perioperative medication that resulted in massive tongue swelling that limited airway and contributed to current dysarthria and PEG dependence History of angiography 09/2018 lower extremities, abdominal aorta - PAD predominantly below the knees, not able to do invasive intervention History of cerebellar stroke History of stress test 12/2020 Hyperlipidemia Hypertension Leaking PEG tube Pacemaker PAD (peripheral artery disease) Parkinson disease Thrombocytopenia Warfarin anticoagulation Surgical History History of CEA (carotid endarterectomy) History of coronary artery bypass graft History of coronary artery stent placement History of esophagogastroduodenoscopy (EGD) (~2018) S/P percutaneous endoscopic gastrostomy (PEG) tube placement history of leak, dysfunction, bleeding around site; replaced 12/[address] Chaves Family History Mother Stroke Father Heart disease Denies family history of Anesthesia complication Bleeding disorder Social History Smoking and tobacco status: former smoker Alcohol intake: former Former alcohol use details: Not in more than 30 years Household members: spouse Physical Exam Const: GENERAL APPEARANCE: cooperative and comfortable ORIENTATION/CONSCIOUSNESS: Yes awake HENMT: COMMON NORMALS: normocephalic, atraumatic and hearing grossly normal bilaterally HEAD & SCALP: normocephalic and atraumatic Resp: COMMON NORMALS: normal respiratory effort, No retractions, No use of accessory muscles and clear to auscultation bilaterally AUSCULTATION: clear to auscultation bilaterally Cardio: COMMON NORMALS: regular rate, regular rhythm and No murmurs present (Cardio) RATE: regular rate RHYTHM: regular rhythm GI: COMMON NORMALS: Soft to palpation and No hepatosplenomegaly present AUSCULTATION: Yes normoactive bowel sounds PALPATION: Yes Soft to palpation, No Tenderness to palpation present (GI), No Guarding due to palpation present (GI) and Yes No hepatosplenomegaly present Extremity: OTHER: Externally rotated and shortened right leg consistent with fracture neurovascularly intact distally Skin: COMMON NORMALS: no rashes or lesions noted GENERAL SKIN EXAM: no rashes or lesions noted Course Vital Signs: Vital signs: Vital Signs Temperature 97.6 F 05/13/22 12:13 Pulse Rate 95 05/13/22 12:13 Respiratory Rate 16 05/13/22 12:20 Blood Pressure 147/62 05/13/22 12:20 Pulse Oximetry 97 05/13/22 12:20 Oxygen Delivery Me thod 05/13/22 12:13 Oxygen Flow Rate 5 05/13/22 07:12 MDM - Extremity (Nontraumatic) Medical Decision Making Right subcapital hip fracture moderate displacement he is on Coumadin his INR is [address] Decker on-call for Ortho orthopedics and discussed with Dr. Vargas who is on for hospitalist orders are written patient will be admitted Medical Records I reviewed the patient's medical records. Lab Data I reviewed the patient's lab results. 05/13/22 07:32 05/13/22 07:32 Radiology Impressions Hip/Pelvis X-Ray 05/13/22 08:00 IMPRESSION: Subcapital femoral neck fracture. Chest X-Ray 05/13/22 08:37 IMPRESSION: 1. Bronchial wall thickening at the LEFT hilum and adjacent pneumonitis. Probably mild acute inflammatory process. New since 12/10/2020. 2. Atherosclerosis aorta. 3. Prior CABG. Laboratory Results WBC 7.6 10^3/uL (4.0-10.0) 05/13/22 07:32 RBC 4.25 10^6/uL (4.1-5.3) 05/13/22 07:32 Hgb 13.7 g/dL (11.7-16.6) 05/13/22 07:32 Hct 45.8 % (42.0-52.0) 05/13/22 07:32 MCV 107.8 fl (80-94) H 05/13/22 07:32 MCH 32.2 pg (28.0-34.0) 05/13/22 07:32 MCHC 29.9 g/dL (30.0-36.0) L 05/13/22 07:32 RDW 15.9 % (12.1-15.1) H 05/13/22 07:32 Plt Count 96 10^3/cmm (130-400) L 05/13/22 07:32 MPV 11.4 fL (7.4-10.4) H 05/13/22 07:32 Neut % (Auto) 46.2 % 05/13/22 07:32 Lymph % (Auto) 43.4 % 05/13/22 07:32 [place] % (Auto) 8.4 % 05/13/22 07:32 Eos % (Auto) 0.8 % 05/13/22 07:32 Baso % (Auto) 0.7 % 05/13/22 07:32 Neut # (Auto) 3.53 10^3/uL (1.8-7.7) 05/13/22 07:32 Lymph # (Auto) 3.3 10^3/uL (0.8-4.8) 05/13/22 07:32 [place] # (Auto) 0.6 10^3/uL (0.2-0.9) 05/13/22 07:32 Eos # (Auto) 0.1 10^3/uL (0.0-0.8) 05/13/22 07:32 Baso # (Auto) 0.1 10^3/uL (0.0-0.1) 05/13/22 07:32 Nucleated RBC % (auto) 0 % 05/13/22 07:32 Nucleated RBCs # 0.0 /100WBC 05/13/22 07:32 PT 23.80 SECONDS (12.1-14.9) H 05/13/22 07:32 INR 2.09 (0.8-1.2) H 05/13/22 07:32 Sodium 141 mmol/L (136-145) 05/13/22 07:32 Potassium 4.9 mmol/L (3.5-5.1) 05/13/22 07:32 Chloride 101 mmol/L (98-107) 05/13/22 07:32 Carbon Dioxide 30 mmol/L (22-29) H 05/13/22 07:32 Anion Gap 14.9 (5-19) 05/13/22 07:32 BUN 45 mg/dL (8-23) H 05/13/22 07:32 Creatinine 1.0 mg/dL (0.7-1.2) 05/13/22 07:32 GFR Calculation Not Reportable 05/13/22 07:32 Glucose 98 mg/dL (65-115) 05/13/22 07:32 Calculated Osmolality 304 mOsm/kg (285-295) H 05/13/22 07:32 Calcium 9.8 mg/dL (8.5-10.5) 05/13/22 07:32 Total Bilirubin 1.0 mg/dL (0.15-1.2) 05/13/22 07:32 AST 34 U/L (0-40) 05/13/22 07:32 ALT 20 U/L (0-41) 05/13/22 07:32 Alkaline Phosphatase 135 U/L (40-130) H 05/13/22 07:32 Total Protein 8.1 g/dL (6.6-8.7) 05/13/22 07:32 Albumin 3.8 g/dL (3.5-5.2) 05/13/22 07:32 Globulin 4.3 g/dL (1.3-4.6) 05/13/22 07:32 Valproic Acid 50.3 ug/mL (50-100) 05/13/22 07:32 Discharge Plan Discharge Patient Disposition: Admitted As Inpatient Admit Provider: Wyatt Beauchamp Clinical Impression: Subcapital fracture of right hip, Afib, Diabetes, Walker as ambulation aid, Dementia, Parkinson disease, Fall, Pacemaker Condition: Stable Coding Level of Care Code 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
--- NOTE | 2022-05-13 08:37 | ECG_ITS ---
[facility] Test Date: 2022-05-13 Pat Name: Mitchel Fishman Department: Room: Gender: Male Material Planner: : 1935 Requested By: Lenny Baig Order Number: [id number] Tracy MD: Axel Machuca M.D. Measurements Intervals [place] Rate: 85 P: 0 UT: 0 QRS: 10 QRSD: 98 T: 78 QT: 389 QTc: 463 Interpretive Statements ATRIAL FIBRILLATION NONSPECIFIC ST & T-WAVE ABNORMALITY Compared to ECG 05/09/2022 11:03:01 No significant changes Electronically Signed On 05-13-2022 17:08:24 [employer] by Axel Machuca M.D. [id number]
--- NOTE | 2022-05-13 08:37 | XR_ITS ---
WS: [id number] PORTABLE CHEST HISTORY: dyspnea/cough COMPARISON: 12/10/2020 Prior CABG. RIGHT dual lead cardiac pacer. Very mild hazy opacification at the LEFT hilum. No dense areas of consolidation. No pleural effusion or pneumothorax. Cardiac size: Normal. Mediastinum/Aorta: Increased opacification of the LEFT hilum new since the prior study. There is bert cent pneumonitis. No osseous abnormality seen. XR/XR chest 1V portable [id number] IMPRESSION: 1. Bronchial wall thickening at the LEFT hilum and adjacent pneumonitis. Proba sarabjit mild acute inflammatory process. New since 12/10/2020. 2. Atherosclerosis aorta. 3. Prior CABG.
[2022-05-13 08:45] LABS: INR 2.09 (0.8-1.2)
[2022-05-13] MEDS: ondansetron 2 mg/ML SDV 2 mL 4 MG IVP (08:47)
[2022-05-13] MEDS: fentaNYL 50 mcg/mL INJ 2mL IVP (08:47)
[2022-05-13 09:16] LABS: Basophils # 0.1 10^3/uL (0.0-0.1); Basophils % 0.7 %; Eosinophils # 0.1 10^3/uL (0.0-0.8); Eosinophils % 0.8 %; Hematocrit 45.8 % (42.0-52.0); Hemoglobin 13.7 g/dL (11.7-16.6); Lymphocytes # 3.3 10^3/uL (0.8-4.8); Lymphocytes % 43.4 %; Mean Corpuscular HGB Conc 29.9 g/dL (30.0-36.0); Mean Corpuscular Hemoglobin 32.2 pg (28.0-34.0); Mean Corpuscular Volume 107.8 fl (80-94); Mean Platelet Volume 11.4 fL (7.4-10.4); Monocytes # 0.6 10^3/uL (0.2-0.9); Monocytes % 8.4 %; Neutrophils # 3.53 10^3/uL (1.8-7.7); Neutrophils % 46.2 %; Nucleated Red Blood Cells % 0 %; Platelet Count 96 10^3/cmm (130-400); Red Blood Count 4.25 10^6/uL (4.1-5.3); Red Cell Distribution Width 15.9 % (12.1-15.1); White Blood Count 7.6 10^3/uL (4.0-10.0)
[2022-05-13 09:26] LABS: Alanine Aminotransferase 20 U/L (0-41); Albumin Level 3.8 g/dL (3.5-5.2); Alkaline Phosphatase 135 U/L (40-130); Anion Gap 14.9 (5-19); Aspartate Amino Transferase 34 U/L (0-40); Blood Urea Nitrogen 45 mg/dL (8-23); Calcium 9.8 mg/dL (8.5-10.5); Carbon Dioxide 30 mmol/L (22-29); Chloride 101 mmol/L (98-107); Globulin 4.3 g/dL (1.3-4.6); Glucose 98 mg/dL (65-115); Osmolality Calculated 304 mOsm/kg (285-295); Potassium 4.9 mmol/L (3.5-5.1); Sodium 141 mmol/L (136-145); Total Protein 8.1 g/dL (6.6-8.7)
--- NOTE | 2022-05-13 09:43 | P.HP_ITS ---
Providers/Chief Complaint Admitting Physician: Wyatt Beauchamp MD Primary Care Provider: Marisela Pacheco MD Chief Complaint: fall/ r hip/ shortening & rotation History of Present Illness Mitchel Fishman is a 86 year old male presenting to the emergency department after a fall this morning. It was unwitnessed. reports she heard a thump, near the recliner where he sleeps. She went in there and found him on the floor. No other obvious injuries. He was complaining of pain. He has underlying dementia so history is difficult to get from the patient. He has been alert, responsive, without nausea and vomiting since the fall. He had a previous fall last week for which she came into the emergency department. reports that he still gets up and transfers, walks with a walker. His memory has been getting progressively worse. He has difficulty with secretions, even saliva with choking so was fed by PEG tube. He has not had any recent fevers but does cough frequently. No COVID exposure. Review of Systems General: Reports: 10 or more systems reviewed and unremarkable except in HPI and below Const: Denies: fever(s) or chills Eyes: Denies: change in vision ENMT: Reports: other (Difficulty swallowing); Denies: throat pain Card: Denies: chest pain Resp: Denies: dyspnea GI: Denies: abdominal pain : Denies: flank pain Musc: Denies: neck pain Skin/Breast: Reports: rash and other (Previous history of sacral decub) Neuro: Reports: weakness in extremities, difficulty walking and frequent falls Psych: Reports: depression and mood swings Endo: Denies: polyuria Jeovany/Lymph: Reports: easy bruising All/Imm: Denies: urticaria Medications/Allergies Home Medications Medication Instructions Recorded Confirmed Last Taken Type allopurinol 100 mg tablet 200 mg PO QAM 07/31/19 03/05/22 12/06/21 History insulin glargine 100 unit/mL 30 unit SUBCUT QAM 07/31/19 03/05/22 12/06/21 History subcutaneous solution (Lantus U-100 Insulin) isosorbide mononitrate 30 mg 30 mg PO QAM 07/31/19 03/05/22 12/06/21 History tablet,extended release 24 hr warfarin 5 mg tablet See Rx Instructions .Route .COMPLEX 12/06/19 03/05/2222 History donepezil 10 mg tablet 10 mg PO BEDTIME 05/08/20 03/05/22 12/05/21 History metoprolol succinate 25 mg 12.5 mg PO QAM 12/12/20 03/05/22 12/06/21 History tablet,extended release 24 hr rosuvastatin 40 mg tablet 20 mg PO BEDTIME 10/26/21 03/05/22 12/05/21 History valproic acid (as sodium salt) 250 250 mg PO BID 10/26/21 03/05/22 12/06/21 History mg/5 mL (5 mL) oral solution loperamide 1 mg/7.5 mL oral liquid 2 mg (15 mL) PO QID PRN Diarrhea 12/09/21 03/05/22 Unknown Rx #300 mL citalopram 40 mg tablet (Celexa) 20 mg PO QAM 05/13/22 05/13/22 05/12/22 History furosemide 20 mg tablet 10 mg PO BID 05/13/22 05/13/22 Unknown History levothyroxine 25 mcg tablet 25 mcg PO QAM 05/13/22 05/13/22 05/12/22 History potassium chloride 20 mEq 10 meq PO BID 05/13/22 05/13/22 05/12/22 History tablet,extended release Allergies Allergy/AdvReac Type Severity Reaction Status Date / Time Iodinated Contrast Media Allergy Mild Unknown Verified 05/13/22 09:54 glipizide Allergy Unknown Verified 05/13/22 09:54 PFSH Acute PFSH: Medical History (Updated 05/13/22 @ 10:03 by Wyatt Beauchamp MD) Afib Aphasia Chronic kidney disease Coronary artery disease Degenerative disc disease Dementia vascular Diabetes Dysarthria Glaucoma Gout History of adverse drug reaction reports history of significant reaction to either anesthesia or other perioperative medication that resulted in massive tongue swelling that limited airway and contributed to current dysarthria and PEG dependence History of angiography 09/2018 lower extremities, abdominal aorta - PAD predominantly below the knees, not able to do invasive intervention History of cerebellar stroke History of stress test 12/2020 Hyperlipidemia Hypertension Leaking PEG tube Pacemaker PAD (peripheral artery disease) Parkinson disease Thrombocytopenia Warfarin anticoagulation Surgical History (Updated 05/13/22 @ 09:47 by Wyatt Beauchamp MD) History of CEA (carotid endarterectomy) History of coronary artery bypass graft History of coronary artery stent placement History of esophagogastroduodenoscopy (EGD) (~2018) S/P percutaneous endoscopic gastrostomy (PEG) tube placement history of leak, dysfunction, bleeding around site; replaced 12/[address] Chaves Family History Mother Stroke Father Heart disease Denies family history of Anesthesia complication Bleeding disorder Social History (Updated 05/13/22 @ 09:47 by Wyatt Beauchamp MD) Smoking and tobacco status: former smoker Alcohol intake: former Former alcohol use details: Not in more than 30 years Household members: spouse Vitals/I&O/Wt Last Vital Signs Temp 97.3 F L 05/13/22 07:12 Pulse 94 05/13/22 07:12 Resp 14 05/13/22 07:12 BP 141/72 05/13/22 08:22 Pulse Ox 95 05/13/22 07:12 O2 Del Method 05/13/22 07:12 O2 Flow Rate 5 05/13/22 07:12 Weight last 48 hrs Weight 90.718 kg Physical Exam Narrative: General exam is an elderly male, alert, conversive but difficult to understand. Obviously confused. Clears throat frequently HEENT: Atraumatic and normocephalic. Pupils equally round. Oropharynx clear. Neck is supple no lymphadenopathy or thyromegaly Cardiovascular irregular, irregular. I do not auscultate a murmur. Lungs clear bilaterally but with diminished breath sounds. Abdomen is soft with positive bowel sounds. Bruise noted around umbilicus where reports this is where his insulin injections ago. PEG tube is noted exam deferred Extremities 1-2+ edema bilaterally. Several small sores on his toes. Skin no rash Neuro no focal deficits Data 05/13/22 07:32 05/13/22 07:32 Other Labs: INR 2.09 LFTs normal with exception of alk phos of 135 Calcium 9.8 Urinalysis pending Chest x-ray left pneumonitis, previous coronary artery bypass grafting, right- sided pacemaker, calcified aorta EKG atrial fibrillation, normal axis, nonspecific ST-T wave changes TSH recently checked and normal Previous nuclear stress test [place] very small reversible abnormality apical lateral wall with 48% EF A&P Assessment and plan (1) Fracture of femoral neck, right, closed: Patient presented with right femoral neck fracture, subcapital, following fall this morning. No other obvious injuries currently. Orthopedic consultation Bedrest Keenan being placed Check UA Note that he had a recent CT scan of his head on May 09 that showed no acute changes following a fall at that time Hold Coumadin for surgical repair, 10 mg of vitamin K subcutaneous will be given. Discussed with higher risk during surgery secondary to multiple comorbidities, pneumonitis. At this point she agrees to proceed for patient quality of life, decreased pain. (2) Fall: See above Check Depakote level (3) Pneumonia: Concern of pneumonia on x-ray. I suspect that the patient chronically aspirates Levaquin IV Currently on oxygen in the emergency department. Wean as tolerated. (4) Diabetes: Mild sliding scale insulin Qualifiers: Diabetes mellitus type: type 2 Diabetes mellitus buttermaker helper insulin use: with buttermaker helper use Diabetes mellitus complication status: with kidney complications Diabetes mellitus complication detail: with chronic kidney disease Chronic kidney disease stage: stage 3 (moderate) Chronic kidney disease stage 3 subtype: stage 3a (GFR 45-59) Qualified Code(s): E11.22 - Type 2 diabetes mellitus with diabetic chronic kidney disease; N18.31 - Chronic kidney disease, stage 3a; Z79.4 - technician terminal and repeater (current) use of insulin (5) Afib: Telemetry Continue home medications, including metoprolol Note mild abnormality on nuclear stress test in December with mild small area of reversible ischemia apical area and EF 48% on anticoagulation with Coumadin. Discussed with . Xarelto or Eliquis on discharge. Vitamin K 10 mg subcu x1, to enhance chance of surgery tomorrow. Risk discussed with , including stroke. Qualifiers: Atrial fibrillation type: unspecified chronic Qualified Code(s): I48.20 - Chronic atrial fibrillation, unspecified (6) Dementia: Rather severe and progressive according to Redirect as needed Monitor for Check Depakote level (7) Feeding difficulty: Continue tube feeding Plan Thrombocytopenia. Mild currently. Multiple other medical problems as outlined in past medical history Full code currently. Daughter considering changing status Currently therapeutic on Coumadin. Holding this. Initiate Lovenox DVT pr ophylaxis when INR is less than 2. Attestations Medical Necessity Statement*: Will need greater than 2 midnight stay for evaluation and treatment of hip fracture, pneumonia Coding Level of Care Code Acute Optoelectronic Technician for [facility] Fwd Diagnoses Fracture of femoral neck, right, closed S72.001A Fall W19.XXXA Pneumonia J18.9 Diabetes E11.22; N18.31; Z79.4 Diabetes mellitus type: type 2 Diabetes mellitus [facility] insulin use: with [facility] use Diabetes mellitus complication status: with kidney complications Diabetes mellitus complication detail: with chronic kidney disease Chronic kidney disease stage: stage 3 (moderate) Chronic kidney disease stage 3 subtype: stage 3a (GFR 45-59) Afib I48.20 Atrial fibrillation type: unspecified chronic Dementia F03.90 Feeding difficulty R63.3
--- NOTE | 2022-05-13 10:07 | PC.PHAR ---
pts family verified pts medications-states the pts lisinopril 2.5mg qam was dced weeks ago [place] [facility] [place] hctz 12.5mg daily pts family state the pt is no longer taking-pts family states the pt takes kcl 10meq bid ([facility] med list has 10meq daily) pts family states the pt takes lasix 10mg bid ext med history shows last filled 03/28/22 14d/s for 10mg daily prn-notes are made in the pharmacy comments
[2022-05-13] MEDS: phytonadione (ADULT) 10 mg/mL Ampule 1 mL SUBCUT (10:23)
[2022-05-13] MEDS: levofloxacin-dextrose 5 % 750 MG/150 ML PREMIX 100 MG IV (10:23)
[2022-05-13 10:59] LABS: Valproic Acid Level 50.3 ug/mL (50-100)
[2022-05-13 11:37] LABS: Add Urine Microscopic? YES; Bilirubin Urine Neg (Negative); Blood Urine Trace (Negative); Glucose Urine UA Norm (Normal); Ketones Urine Negative (Negative); Leukocyte Esterase Urine Negative (Negative); Nitrate Urine Negative (Negative); Protein Urine Neg (Negative); Urine Appearance Clear (CLEAR); Urine Color Yellow (Yellow); Urobilinogen Urine Norm (Negative); pH Urine 7 (5-7)
[2022-05-13 11:38] LABS: Add Urine Culture? No; RBC Urine 0-4 /hpf (0-2); Squamous Epithelial Cell Urine 0-4 /hpf (0-5)
[2022-05-13 13:10] LABS: Glucose Point of Care 106 mg/dL (70-110)
[2022-05-13] MEDS: morphine 4 mg/mL SDV 1 mL 2 MG IVP (16:11)
--- NOTE | 2022-05-13 16:29 | P.CONIM_ITS ---
Providers/Reason For Consult Consulting Physician/Specialty*: David Decker MD; orthopedic surgery Reason for Consult*: Right femoral neck fracture Attending Physician: Wyatt Beauchamp MD Primary Care Provider: Marisela Pacheco MD History of Present Illness History of Present Illness Mitchel Fishman is a 86 year old male who fell this morning unwitnessed with immediate pain in the right hip and inability to bear weight. He presented to our emergency room complaining of right hip pain. The reports that he was able to transfer and use a wheeled walker, he lives with his who is his primary long term care pharmacist. Medications/Allergies Home Medications Medication Instructions Recorded Confirmed Last Taken Type allopurinol 100 mg tablet 200 mg PO QAM 07/31/19 05/13/22 05/12/22 History insulin glargine 100 unit/mL 30 unit SUBCUT QAM 07/31/19 05/13/22 05/12/22 History subcutaneous solution (Lantus U-100 Insulin) isosorbide mononitrate 30 mg 30 mg PO QAM 07/31/19 05/13/22 05/12/22 History tablet,extended release 24 hr warfarin 5 mg tablet See Rx Instructions .Route .COMPLEX 12/06/19 05/13/22 12/05/21 History donepezil 10 mg tablet 10 mg PO BEDTIME 05/08/20 05/13/22 05/12/22 History metoprolol succinate 25 mg 12.5 mg PO QAM 12/12/20 05/13/22 05/12/22 History tablet,extended release 24 hr rosuvastatin 40 mg tablet 20 mg PO BEDTIME 10/26/21 05/13/22 05/12/22 History valproic acid (as sodium salt) 250 250 mg PO BID 10/26/21 05/13/22 05/12/22 History mg/5 mL (5 mL) oral solution loperamide 1 mg/7.5 mL oral liquid 2 mg (15 mL) PO QID PRN Diarrhea 12/09/21 05/13/22 Unknown Rx #300 mL citalopram 40 mg tablet (Celexa) 20 mg PO QAM 05/13/22 05/13/22 05/12/22 History furosemide 20 mg tablet 10 mg PO BID 05/13/22 05/13/22 Unknown History levothyroxine 25 mcg tablet 25 mcg PO QAM 05/13/22 05/13/22 05/12/22 History potassium chloride 20 mEq 10 meq PO BID 05/13/22 05/13/22 05/12/22 History tablet,extended release Allergies Allergy/AdvReac Type Severity Reaction Status Date / Time Iodinated Contrast Media Allergy Mild Unknown Verified 05/13/22 09:54 glipizide Allergy Unknown Verified 05/13/22 09:54 Current Medications Generic Name Dose Route Start Last Admin Trade Name Freq PRN Reason Stop Dose Admin Levofloxacin/Dextrose 750 mg in 150 mls @ 100 mls/hr 05/13/22 10:00 05/13/22 11:53 Levaquin-D5w IV Infused Q24H NAOMI Infusion Protocol Insulin Human Lispro 0 unit 05/13/22 12:13 05/13/22 13:22 Insulin Lispro 100 Unit/1 Ml SUBCUT Not Given WM&BEDTIME NAOMI Protocol Morphine Sulfate 2 mg 05/13/22 12:13 05/13/22 16:11 Morphine 4 Mg/Ml Sdv 1 Ml IVP 2 mg Q4H PRN Administration SEVERE PAIN PFSH Acute PFSH: Medical History (Updated 05/13/22 @ 16:34 by David Decker MD) Afib Aphasia Chronic kidney disease Coronary artery disease Degenerative disc disease Dementia vascular Diabetes Dysarthria Glaucoma Gout History of adverse drug reaction reports history of significant reaction to either anesthesia or other perioperative medication that resulted in massive tongue swelling that limited airway and contributed to current dysarthria and PEG dependence History of angiography 09/2018 lower extremities, abdominal aorta - PAD predominantly below the knees, not able to do invasive intervention History of cerebellar stroke History of stress test 12/2020 Hyperlipidemia Hypertension Leaking PEG tube Pacemaker PAD (peripheral artery disease) Parkinson disease Thrombocytopenia Warfarin anticoagulation Surgical History History of CEA (carotid endarterectomy) History of coronary artery bypass graft History of coronary artery stent placement History of esophagogastroduodenoscopy (EGD) (~2018) S/P percutaneous endoscopic gastrostomy (PEG) tube placement history of leak, dysfunction, bleeding around site; replaced 12/[address] Chaves Family History Mother Stroke Father Heart disease Denies family history of Anesthesia complication Bleeding disorder Social History Smoking and tobacco status: former smoker Alcohol intake: former Former alcohol use details: Not in more than 30 years Household members: spouse Vitals/I&O/Wt Last Vital Signs Temp 98.0 F 05/13/22 15:28 Pulse 92 05/13/22 15:28 Resp 18 05/13/22 16:11 BP 134/72 05/13/22 15:28 Pulse Ox 98 05/13/22 15:28 O2 Del Method 05/13/22 12:14 O2 Flow Rate 5 05/13/22 07:12 05/13/22 05/13/22 05/13/22 06:59 14:59 22:59 Intake Total 150 / 150 Balance 150 / 150 Weight last 48 hrs Weight 200 lb 7 oz Weight 200 lb Physical Exam Narrative: The patient is a elderly male supine in bed in no apparent distress. Is clear shortening and external rotation of his right hip. There is severe pain with internal or external rotation of the right hip. Palpable right dorsalis pedis pulse. He will flex and extend his toes and right ankle without any motor deficits. Urinary Catheter Management: Keenan: Cath Placed During This Visit: yes Urinary Catheter Date of Insertion: 05/13/22 Urinary Catheter Time of Insertion: 10:55 Data 05/13/22 07:32 05/13/22 07:32 Xray Ortho: Radiologist's impression: Radiographs of the right hip are personally interpreted from this morning. The patient has displaced right femoral neck fracture. A&P Assessment and plan (1) Subcapital fracture of right hip: I discussed options with the patient and family. I told them possible cristiana atments for displaced femoral neck fracture would include nonoperative treatment, open reduction internal fixation, or hemiarthroplasty. I told them without treatment the patient would experience ongoing of pain that would limit mobility. This would require pain medications and place her at medical risks due to prolonged periods of bed rest. I discussed the possibility of open reduction internal fixation with pins. I warned them that for displaced fractures of the risk of nonunion and malunion is exceptionally high. In addition there is a high likelihood that the blood applied to the femoral head has been disrupted and that even with successful stabilization of the fracture the femoral head will go on to . I finally discussed the possibility of hemiarthroplasty. I think this would give the patient the greatest chance of being immediately mobilized. I discussed risk of a bleeding and a possible need for blood products. The patient is currently anticoagulated with Coumadin. He has been given vitamin K K. We can proceed with surgery once his INR returns closer to normal. I would target him for a INR of less than 1.5 prior to surgery. Decision regarding anticoagulation postoperatively to be made by medicine. I discussed the use of the TXA that may be utilized to diminish blood loss. I discussed risk of component failure and loosening that could require revision. I discussed the risk of dislocation and a bipolar arthroplasty which is quite unlikely. Certainly the patient has medical comorbidities it is a slightly higher risk. Unfortunately I do not think that nonoperative care would be of benign either. 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 After a long discussion of options they agree to hemiarthroplasty of the hip. I told him ultimately the patient will likely require penitentiary placement. (2) Warfarin anticoagulation: Patient has a current INR of 2.0. He has been given vitamin K. We will proceed with surgery once we can get the INR closer to normal. I would like to see it less than 1.5. Coding Level of Care Code Acute Oil Well Engineer for [facility] Diagnoses Subcapital fracture of right hip S72.011A Warfarin anticoagulation Z79.01
[2022-05-13 17:17] LABS: Glucose Point of Care 120 mg/dL (70-110)
[2022-05-13 21:01] LABS: Glucose Point of Care 91 mg/dL (70-110)
[2022-05-13] MEDS: donepezil 5 MG Tablet 10 MG PO (22:06)
[2022-05-13] MEDS: valproic acid 250 mg/5 mL UDC PO (22:06)
[2022-05-13] MEDS: atorvastatin 40 mg Tablet 80 MG PO (22:07)
[2022-05-13] MEDS: FUROsemide 20 mg Tablet PEG-TUBE (22:09)
[2022-05-14] VITALS (10 sets, daily range): BP systolic 102–151; BP diastolic 68–85; PULSE 84–101; RESP 16–20; TEMP 36.4–37.2; O2SAT 91–96
[2022-05-14] MEDS: acetaminophen 325 mg Tablet 650 MG PO ×2 (00:26→06:02)
[2022-05-14 02:18] LABS: Basophils # 0.1 10^3/uL (0.0-0.1); Basophils % 0.6 %; Eosinophils % 0.1 %; Hematocrit 37.4 % (42.0-52.0); Hemoglobin 11.5 g/dL (11.7-16.6); Lymphocytes # 1.7 10^3/uL (0.8-4.8); Lymphocytes % 19.4 %; Mean Corpuscular HGB Conc 30.7 g/dL (30.0-36.0); Mean Corpuscular Volume 107.2 fl (80-94); Mean Platelet Volume 10.9 fL (7.4-10.4); Monocytes # 0.8 10^3/uL (0.2-0.9); Monocytes % 9.6 %; Neutrophils # 6.03 10^3/uL (1.8-7.7); Neutrophils % 70.1 %; Nucleated Red Blood Cells % 0 %; Platelet Count 81 10^3/cmm (130-400); Red Blood Count 3.49 10^6/uL (4.1-5.3); Red Cell Distribution Width 15.9 % (12.1-15.1); White Blood Count 8.6 10^3/uL (4.0-10.0)
[2022-05-14 02:31] LABS: INR 1.94 (0.8-1.2)
[2022-05-14 02:40] LABS: Alanine Aminotransferase 14 U/L (0-41); Albumin Level 3.1 g/dL (3.5-5.2); Alkaline Phosphatase 102 U/L (40-130); Aspartate Amino Transferase 28 U/L (0-40); Blood Urea Nitrogen 47 mg/dL (8-23); Calcium 9.2 mg/dL (8.5-10.5); Carbon Dioxide 28 mmol/L (22-29); Chloride 104 mmol/L (98-107); Creatinine Clr Calc Pharmacy 48.7284; Globulin 3.1 g/dL (1.3-4.6); Glucose 182 mg/dL (65-115); Magnesium 2.1 mg/dL (1.7-2.3); Osmolality Calculated 305 mOsm/kg (285-295); Sodium 139 mmol/L (136-145); Total Bilirubin 1.1 mg/dL (0.15-1.2); Total Protein 6.2 g/dL (6.6-8.7)
[2022-05-14 02:52] LABS: Anion Gap 12.1 (5-19); Potassium 5.1 mmol/L (3.5-5.1)
[2022-05-14] MEDS: levothyroxine 25 mcg Tablet PO (06:03)
[2022-05-14] MEDS: isosorbide mononitrate ER 30 mg Tablet PO (06:03)
[2022-05-14] MEDS: metoprolol succinate ER (24 HR) 25 mg Tablet 12.5 MG PO (06:03)
[2022-05-14] MEDS: allopurinol 100 mg Tablet 200 MG PO (06:04)
[2022-05-14] MEDS: citalopram 20 mg Tablet PO (06:04)
[2022-05-14 06:35] LABS: Glucose Point of Care 138 mg/dL (70-110)
[2022-05-14 07:59] LABS: Glucose Point of Care 188 mg/dL (70-110)
[2022-05-14 08:03] LABS: Glucose Point of Care 195 mg/dL (70-110)
--- NOTE | 2022-05-14 08:26 | PC.NURSE ---
Morning tube feeding given from 602 to 622 of 600 cc Osmolyte via gravity flow. Residual was 0 cc prior to administration. Mr. Fishman was alert to name, and that he was in the hospital for a broken hip this morning. He was put on an oxygen mask due to saturation going down to 75%. He would pull the oxygen tubing off at times and oxygen needed to be turned back up to maintain sat 92% or greater. His sat was 95% on 3L via oxymask.
[2022-05-14] MEDS: phytonadione (ADULT) 10 mg/mL Ampule 1 mL SUBCUT (08:54)
[2022-05-14] MEDS: sodium chloride 0.9% 1,000 ML 75 ML IV (09:06)
[2022-05-14] MEDS: insulin lispro 100 unit/1 mL SUBCUT ×2 (09:21→12:17)
--- NOTE | 2022-05-14 09:29 | P.PN_ITS ---
Subjective Subjective: Mitchel awakens easily. Nurses did not have any concerns last night. Oxygen requirement has weaned down. PEG tube leaking some. He has had no apparent abdominal pain. Medications: Reviewed: Yes Vitals/I&O/Wt Last Vital Signs Temp 97.6 F 05/14/22 07:43 Pulse 89 05/14/22 07:43 Resp 18 05/14/22 07:43 BP 102/68 05/14/22 08:05 Pulse Ox 95 05/14/22 07:43 O2 Del Method 05/14/22 07:43 O2 Flow Rate 6 05/13/22 23:55 05/13/22 05/14/22 05/14/22 22:59 06:59 14:59 Output Total 800 / 800 Balance -800 / -650 Weight last 48 hrs Weight 90.917 kg Weight 90.718 kg Physical Exam Narrative: General exam is an elderly male, alert, conversive but difficult to understand. Confused Neck is supple no lymphadenopathy or thyromegaly Cardiovascular irregular, irregular. No murmur Lungs clear bilaterally but with diminished breath sounds. Abdomen is soft with positive bowel sounds. PEG tube certainly with formula around tube Extremities 1+ edema bilaterally. Several small sores on his toes. Skin no rash Urinary Catheter Management: Keenan: Cath Placed During This Visit: yes Reason for Continuing Indwelling Catheter: Other Urinary Catheter Date of Insertion: 05/13/22 Urinary Catheter Time of Insertion: 10:55 Data 05/14/22 01:53 05/14/22 01:53 A&P Assessment and plan (1) Fracture of femoral neck, right, closed: Patient presented with right femoral neck fracture, subcapital, following fall this morning. No other obvious injuries currently. Orthopedic consultation appreciated Continue Keenan, bedrest UA was checked, no evidence of infection Note that he had a recent CT scan of his head on May 09 that showed no acute changes following a fall at that time Hold Coumadin for surgical repair, 10 mg of vitamin K subcutaneous will be given. Discussed with higher risk during surgery secondary to multiple comorbidities, pneumonitis. At this point she agrees to proceed for patient q uality of life, decreased pain. Surgery on hold today secondary to persistently elevated INR. 10 mg vitamin K subcutaneous, recheck INR tomorrow. Hopefully can undergo surgery tomorrow. (2) Fall: See above Depakote level not elevated (3) Pneumonia: Concern of pneumonia on x-ray. I suspect that the patient chronically aspirates Continue Levaquin Currently on oxygen in the emergency department. Wean as tolerated. (4) Diabetes: Mild sliding scale insulin (5) Afib: Telemetry Continue home medications, including metoprolol Note mild abnormality on nuclear stress test in December with mild small area of reversible ischemia apical area and EF 48% on anticoagulation with Coumadin. Discussed with . Parth or Laura on discharge. Repeat dose of vitamin K today. INR tomorrow. (6) Dementia: Rather severe and progressive according to Redirect as needed Monitor for sundowning (7) Feeding difficulty: Continue tube feeding Plan Thrombocytopenia. Mild currently. Multiple other medical problems as outlined in past medical history Full code currently. Daughter considering changing status Currently therapeutic on Coumadin. Holding this. Initiate Lovenox DVT prophylaxis when INR is less than 2. Lovenox x1 today. Attestations Medical Necessity Statement*: Needs continued hospitalization pending definitive treatment for hip fracture Coding Level of Care Code Acute Clothing Sales Assistant for [facility] Diagnoses Fracture of femoral neck, right, closed S72.001A Fall W19.XXXA Pneumonia J18.9 Diabetes E11.9 Afib I48.91 Dementia F03.90 Feeding difficulty R63.3
[2022-05-14 11:06] LABS: Glucose Point of Care 179 mg/dL (70-110)
[2022-05-14] MEDS: levofloxacin-dextrose 5 % 750 MG/150 ML PREMIX 100 MG IV (11:25)
--- NOTE | 2022-05-14 11:41 | PC.CHAP ---
Pastoral Care Encounter/Spiritual Assessment Type of Contact [] Declined substance abuse prevention coordinator visit [] Patient/Family/Request visit [] Outpatient visit [] Follow-up visit [] Physician referral [] Code/Alert [x] Routine visit [] Staff referral [] Actively dying [] Patient sleeping [] Family support [] [] Out of room [] Palliative care [] [] Receiving care in room [] Pre-surgical visit [] Trauma [] Long length of stay [] ICU visit [] Other: Relational/Emotional Strength [] Patient feels connected with others/family/visitors/staff [] Distress [] Loneliness/isolation [] Abandonment Spirituality of Patient [x] Person of Renetta [] Attends Voodoo of their Renetta x] Believes in Prayer [] Reads Bible or Religion materials [] There are Spiritual issues to be addressed [place] Interventions [x] Prayer [x] Active listening []x Non-anxious presence [] Spiritual/emotional support [] Crisis/trauma care [] Spiritual counseling [] Bereavement support [] Provided bereavement packet x] Provided Bible/devotional materials [] Provided toy/stuffed animal, coloring book to patient or family member [] Provided Communion [] Anointing/[place] [] Salvation [x]x Completed spiritual assessment [] Other: Impact on Illness or Injury [] Angry [] Fearful [] Anxious [] Often cries [] Exhaustion [] Unable to work [] Unable to attend roman catholic [] Unable to walk/stand [] Unable to read [] Unable to drive [] Unable to eat/drink [] Unable to sleep [] Unable to be with family [] Patient intubated [] Other: Summary Time spent with patient 10 min
[2022-05-14 16:58] LABS: Glucose Point of Care 94 mg/dL (70-110)
[2022-05-14] MEDS: enoxaparin 30 mg/0.3 mL Syringe SUBCUT (17:54)
[2022-05-14] MEDS: valproic acid 250 mg/5 mL UDC PO (17:55)
[2022-05-14 20:17] LABS: Glucose Point of Care 97 mg/dL (70-110)
[2022-05-14] MEDS: morphine 4 mg/mL SDV 1 mL 2 MG IVP (21:37)
[2022-05-15] VITALS (23 sets, daily range): BP systolic 103–150; BP diastolic 41–89; PULSE 81–109; RESP 13–19; TEMP 35.7–37.2; O2SAT 86–95
[2022-05-15 04:26] LABS: Basophils % 0.5 %; Eosinophils # 0.1 10^3/uL (0.0-0.8); Eosinophils % 1.6 %; Hematocrit 42.4 % (42.0-52.0); Hemoglobin 12.7 g/dL (11.7-16.6); Lymphocytes # 1.5 10^3/uL (0.8-4.8); Lymphocytes % 18.3 %; Mean Corpuscular Hemoglobin 32.6 pg (28.0-34.0); Mean Corpuscular Volume 108.7 fl (80-94); Mean Platelet Volume 10.6 fL (7.4-10.4); Monocytes # 0.7 10^3/uL (0.2-0.9); Monocytes % 8.7 %; Neutrophils # 5.62 10^3/uL (1.8-7.7); Neutrophils % 70.5 %; Nucleated Red Blood Cells % 0 %; Platelet Count 78 10^3/cmm (130-400)
[2022-05-15 04:34] LABS: INR 1.37 (0.8-1.2)
[2022-05-15 04:40] LABS: Anion Gap 11.3 (5-19); Blood Urea Nitrogen 39 mg/dL (8-23); Calcium 9.5 mg/dL (8.5-10.5); Carbon Dioxide 30 mmol/L (22-29); Chloride 103 mmol/L (98-107); Glucose 110 mg/dL (65-115); Osmolality Calculated 298 mOsm/kg (285-295); Potassium 5.3 mmol/L (3.5-5.1); Sodium 139 mmol/L (136-145)
--- NOTE | 2022-05-15 05:50 | PM.CONSULT ---
Providers/Reason For Consult Consulting Physician/Specialty*: Dr. Jesus Alberto Mclean, DO/General surgery Reason for Consult*: Leaking PEG tube Attending Physician: Wyatt Beauchamp MD Primary Care Provider: Marisela Pacheco MD History of Present Illness History of Present Illness Mitchel Fishman is a 86 year old male with dementia and aphasia, HPI and ROS are limited secondary to this, who presented to the hospital after an unwitnessed fall. He was found to have a right femoral neck fracture. While in the hospital his tube feeding through his PEG was leaking significantly. General surgery was called to manage the PEG tube. Review of Systems General: Reports: ROS unobtainable due to mental status Medications/Allergies Home Medications Medication Instructions Recorded Confirmed Last Taken Type allopurinol 100 mg tablet 200 mg PO QAM 07/31/19 05/13/22 05/12/22 History insulin glargine 100 unit/mL 30 unit SUBCUT QAM 07/31/19 05/13/22 05/12/22 History subcutaneous solution (Lantus U-100 Insulin) isosorbide mononitrate 30 mg 30 mg PO QAM 07/31/19 05/13/22 05/12/22 History tablet,extended release 24 hr warfarin 5 mg tablet See Rx Instructions .Route .COMPLEX 12/06/19 05/13/22 12/05/21 History donepezil 10 mg tablet 10 mg PO BEDTIME 05/08/20 05/13/22 05/12/22 History metoprolol succinate 25 mg 12.5 mg PO QAM 12/12/20 05/13/22 05/12/22 History tablet,extended release 24 hr rosuvastatin 40 mg tablet 20 mg PO BEDTIME 10/26/21 05/13/22 05/12/22 History valproic acid (as sodium salt) 250 250 mg PO BID 10/26/21 05/13/22 05/12/22 History mg/5 mL (5 mL) oral solution loperamide 1 mg/7.5 mL oral liquid 2 mg (15 mL) PO QID PRN Diarrhea 12/09/21 05/13/22 Unknown Rx #300 mL citalopram 40 mg tablet (Celexa) 20 mg PO QAM 05/13/22 05/13/22 05/12/22 History furosemide 20 mg tablet 10 mg PO BID 05/13/22 05/13/22 Unknown History levothyroxine 25 mcg tablet 25 mcg PO QAM 05/13/22 05/13/22 05/12/22 History potassium chloride 20 mEq 10 meq PO BID 05/13/22 05/13/22 05/12/22 History tablet,extended release Allergies Allergy/AdvReac Type Severity Reaction Status Date / Time Iodinated Contrast Media Allergy Mild Unknown Verified 05/13/22 09:54 glipizide Allergy Unknown Verified 05/13/22 09:54 Current Medications Generic Name Dose Route Start Last Admin Trade Name Freq PRN Reason Stop Dose Admin Acetaminophen 650 mg 05/13/22 12:13 05/14/22 06:02 Acetaminophen 325 Mg Tablet PO 650 mg Q6H PRN Administration Mild/Mod Pain Or Temp >/= 101 Allopurinol 200 mg 05/14/22 06:00 05/14/22 06:04 Allopurinol 100 Mg Tablet PO 200 mg QAM NAOMI Administration Atorvastatin Calcium 80 mg 05/13/22 21:00 05/14/22 21:29 Atorvastatin 40 Mg Tablet PO Not Given BEDTIME NAOMI Citalopram Hydrobromide 20 mg 05/14/22 06:00 05/14/22 06:04 Citalopram 20 Mg Tablet PO 20 mg QAM NAOMI Administration Donepezil HCl 10 mg 05/13/22 21:00 05/14/22 21:29 Donepezil 5 Mg Tablet PO Not Given BEDTIME NAOMI Levofloxacin/Dextrose 750 mg in 150 mls @ 100 mls/hr 05/13/22 10:00 05/14/22 16:37 Levaquin-D5w IV Infused Q24H NAOMI Infusion Protocol Sodium Chloride 1,000 mls @ 30 mls/hr 05/14/22 07:45 05/14/22 09:06 Sodium Chloride 0.9% IV 75 mls/hr .Q24H NAOMI Administration Insulin Human Lispro 0 unit 05/13/22 12:13 05/14/22 21:29 Insulin Lispro 100 Unit/1 Ml SUBCUT Not Given WM&BEDTIME NAOMI Protocol Isosorbide Mononitrate 30 mg 05/14/22 06:00 05/14/22 06:03 Isosorbide Mononitrate Er 30 Mg Tablet PO 30 mg QAM NAOMI Administration Levothyroxine Sodium 25 mcg 05/14/22 06:00 05/14/22 06:03 Levothyroxine 25 Mcg Tablet PO 25 mcg QAM NAOMI Administration Metoprolol Succinate 12.5 mg 05/14/22 06:00 05/14/22 06:03 Metoprolol Succinate Er (24 Hr) 25 Mg Tablet PO 12.5 mg QAM NAOMI Administration Morphine Sulfate 2 mg 05/13/22 12:13 05/14/22 21:37 Morphine 4 Mg/Ml Sdv 1 Ml IVP 2 mg Q4H PRN Administration SEVERE PAIN Valproic Acid 250 mg 05/13/22 18:00 05/14/22 17:58 Valproic Acid 250 Mg/5 Ml Udc PO Not Given BID NAOMI PFSH Acute PFSH: Medical History Afib Aphasia Chronic kidney disease Coronary artery disease Degenerative disc disease Dementia vascular Diabetes Dysarthria Glaucoma Gout History of adverse drug reaction reports history of significant reaction to either anesthesia or other perioperative medication that resulted in massive tongue swelling that limited airway and contributed to current dysarthria and PEG dependence History of angiography 09/2018 lower extremities, abdominal aorta - PAD predominantly below the knees, not able to do invasive intervention History of cerebellar stroke History of stress test 12/2020 Hyperlipidemia Hypertension Leaking PEG tube Pacemaker PAD (peripheral artery disease) Parkinson disease Thrombocytopenia Warfarin anticoagulation Surgical History History of CEA (carotid endarterectomy) History of coronary artery bypass graft History of coronary artery stent placement History of esophagogastroduodenoscopy (EGD) (~2018) S/P percutaneous endoscopic gastrostomy (PEG) tube placement history of leak, dysfunction, bleeding around site; replaced 12/[address] Chaves Family History Mother Stroke Father Heart disease Denies family history of Anesthesia complication Bleeding disorder Social History Smoking and tobacco status: former smoker Alcohol intake: former Former alcohol use details: Not in more than 30 years Household members: spouse Vitals/I&O/Wt Last Vital Signs Temp 98.3 F 05/15/22 03:43 Pulse 95 05/15/22 03:43 Resp 18 05/15/22 03:43 BP 119/78 05/15/22 03:43 Pulse Ox 94 05/15/22 03:43 O2 Del Method 05/15/22 03:43 O2 Flow Rate 5 05/15/22 03:43 05/14/22 05/14/22 05/15/22 14:59 22:59 06:59 Intake Total 150 / 150 Output Total 500 / 500 Balance -350 / -350 Weight last 48 hrs Weight 200 lb 7 oz Weight 200 lb Physical Exam Narrative: General : Patient is well developed , no acute distress Head : Normal cephalic, a-traumatic. Ears : Pinnae and external canal are normal. Hearing is normal. Eyes : PERRLA, Sclera and injection are normal. No conjunctival discharge. Nose : Mucous membranes are without erythema. Throat : buccal mucosa is normal, gums are without significant recession or hypertrophy. Lungs : Equal chest rise bilaterally, no use of accessory muscles, trachea is midline. Cor : Rate and rhythm are normal. Abdomen : Soft, ND, NT, no g/r/m PEG tube in place without erythema or exudate. It is loose at the stoma. Urinary Catheter Management: Keenan: Cath Placed During This Visit: yes Reason for Continuing Indwelling Catheter: Other Urinary Catheter Date of Insertion: 05/13/22 Urinary Catheter Time of Insertion: 10:55 Data 05/15/22 04:19 05/15/22 04:19 A&P Assessment and plan (1) Feeding difficulty: Plan Feeding tube was replaced at the bedside with a 24 Nepali MARKELL PEG tube. Button was tightened down to the skin loosely. Balloon was filled with 10 cc. 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
[2022-05-15] MEDS: sodium chloride 0.9% 1,000 ML 30 ML IV ×2 (06:52→12:09)
[2022-05-15 07:23] LABS: Glucose Point of Care 108 mg/dL (70-110)
--- NOTE | 2022-05-15 08:43 | PM.PN ---
Subjective Subjective: Mitchel awakens easily, tries to communicate. No events noted overnight. Pain is under control. Was leaking quite a bit from his PEG tube. General surgery consulted and plan on changing but not today. Medications: Reviewed: Yes Vitals/I&O/Wt Last Vital Signs Temp 97.8 F 05/15/22 08:00 Pulse 88 05/15/22 08:00 Resp 16 05/15/22 08:00 BP 146/70 05/15/22 08:00 Pulse Ox 94 05/15/22 08:00 O2 Del Method 05/15/22 08:00 O2 Flow Rate 5 05/15/22 08:00 05/14/22 05/15/22 05/15/22 22:59 06:59 14:59 Intake Total 1150 / 1150 Output Total 500 / 500 800 / 1300 Balance 650 / 650 -800 / -150 Weight last 48 hrs Weight 90.917 kg Physical Exam Narrative: General exam no distress Neck supple no lymphadenopathy thyromegaly Cardiovascular regular rate and rhythm Lungs diminished breath sounds bilaterally. No wheezing Abdomen is soft. Positive bowel sounds Extremities no cyanosis clubbing or edema Urinary Catheter Management: Keenan: Cath Placed During This Visit: yes Reason for Continuing Indwelling Catheter: Other Urinary Catheter Date of Insertion: 05/13/22 Urinary Catheter Time of Insertion: 10:55 Data 05/15/22 04:19 05/15/22 04:19 A&P Assessment and plan (1) Fracture of femoral neck, right, closed: Patient presented with right femoral neck fracture, subcapital, following fall this morning. No other obvious injuries currently. Orthopedic consultation appreciated Continue Keenan, bedrest UA was checked, no evidence of infection Note that he had a recent CT scan of his head on May 09 that showed no acute changes following a fall at that time Hold Coumadin for surgical repair, and he received vitamin K for reversal. INR today is 1.37. Discussed with higher risk during surgery secondary to multiple comorbidities, pneumonitis. At this point she agrees to proceed for patient quality of life, decreased pain. Surgery planned today (2) Fall: See above Depakote level not elevated (3) Pneumonia: Concern of pneumonia on x-ray. I suspect that the patient chronically aspirates Continue Levaquin No fever, or significantly elevated white count. Try to wean oxygen Repeat chest x-ray today (4) Diabetes: Mild sliding scale insulin (5) Afib: Telemetry Continue home medications, including metoprolol Note mild abnormality on nuclear stress test in December with mild small area of reversible ischemia apical area and EF 48% on anticoagulation with Coumadin. Discussed with . Xarelshantell or Laura on discharge. (6) Dementia: Rather severe and progressive according to Redirect as needed Monitor for (7) Feeding difficulty: Leaking around PEG tube. Button to be changed today by general surgery. Plan Thrombocytopenia. Mild currently. Multiple other medical problems as outlined in past medical history Full code currently. reports she wants to change to allow natural , but still wants aggressive treatment regarding hip fracture. Holding anticoagulation for hip surgery today. Received dose of Lovenox yesterday. Attestations Medical Necessity Statement*: Requires continued hospitalization for definitive care for fractured hip. 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
--- NOTE | 2022-05-15 08:44 | XRR_ITS ---
PROCEDURE INFORMATION: Exam: XR Chest Exam date and time: 05/15/2022 8:52 AM Age: 86 years old Clinical indication: Pre-operative exam; Cardiovascular screening and respiratory screening exam; Prior surgery; Surgery type: Pacemaker; Patient HX: Broke hip Friday, going to have surgery today; Additional info: Follow up pneumonia TECHNIQUE: Imaging protocol: Radiologic exam of the chest. Views: 1 view. COMPARISON: CR XR chest 1V portable [id number] 05/13/2022 9:43 AM FINDINGS: Tubes, catheters and devices: Atrioventricular pacemaker. Lungs: Emphysematous change, interstitial disease, and asymmetric airspace disease (left greater than right). Pleural spaces: No significant pleural effusion. Heart/Mediastinum: Cardiomegaly and asymmetric prominence of the pulmonary vasculature. Vasculature: Calcification of the thoracic aorta. Bones/joints: Osteopenia and degenerative change. XR/XR chest 1V portable [id number] IMPRESSION: 1. Cardiomegaly and asymmetric prominence of the pulmonary vasculature. 2. Emphysematous change, interstitial disease, and asymmetric airspace disease (left greater than right).
[2022-05-15] MEDS: ipratropium-albuterol 3 mL Neb INHALATION ×3 (09:05→19:35)
[2022-05-15 11:56] LABS: Glucose Point of Care 111 mg/dL (70-110)
--- NOTE | 2022-05-15 12:24 | P.PCN_ITS ---
Procedure/Consent Procedure Narrative: The balloon was deflated. The PEG tube was removed with constant traction, easily. A 24 Gren[place] MARKELL PEG tube was then placed. This is slightly larger than the previous PEG tube. The balloon was filled with 10 cc of saline. The button was tightened down to the skin loosely. Patient tolerated procedure well Acute Procedures Feeding Tube Replacement: Grenadian Tube Size (F): 24 Balloon size (ml): 10 Patient tolerated procedure: well
--- NOTE | 2022-05-15 12:24 | P.PN_ITS ---
Subjective Subjective: Continued right hip pain. Vitals/I&O/Wt Last Vital Signs Temp 97.8 F 05/15/22 11:35 Pulse 92 05/15/22 11:35 Resp 18 05/15/22 11:35 BP 145/89 05/15/22 11:35 Pulse Ox 93 05/15/22 11:35 O2 Del Method 05/15/22 11:35 O2 Flow Rate 3 05/15/22 11:35 05/14/22 05/15/22 05/15/22 22:59 06:59 14:59 Intake Total 1150 / 1150 Output Total 500 / 500 800 / 1300 350 / 350 Balance 650 / 650 -800 / -150 -350 / -350 Physical Exam Narrative: Pain with motion right hip. Right leg is shortened and externally rotated position Urinary Catheter Management: Keenan: Cath Placed During This Visit: yes Reason for Continuing Indwelling Catheter: Other Urinary Catheter Date of Insertion: 05/13/22 Urinary Catheter Time of Insertion: 10:55 Data 05/15/22 04:19 05/15/22 04:19 A&P Assessment and plan (1) Subcapital fracture of right hip: Coagulopathy improved. We will proceed with hemiarthroplasty today. Patient higher risk but has been counseled. Patient and agree to above procedure. Attestations Medical Necessity Statement*: Surgery today. 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
--- NOTE | 2022-05-15 13:02 | P.ANESASSM_ITS ---
Pre-Anesthetic Assessment Height/Weight: Height 1.83 m Weight 90.917 kg Temp Pulse Resp BP Pulse Ox O2 Del Method O2 Flow Rate 97.8 F 92 18 145/89 93 3 05/15/22 11:35 05/15/22 11:35 05/15/22 11:35 05/15/22 11:35 05/15/22 11:35 05/15/22 11:35 05/15/22 11:35 Preop Diagnosis: Right femoral neck fracture Operation Date: 05/15/22 12:00 Proposed Procedures p Right bipolar hip arthroplasty, cemented(Right) - David Decker MD Familial anesthetic complications: none Was Beta Micah taken within 24 hours: Yes Was Clonidine taken within 24 hours: N/A Last intake: Intake Last Liquid Date 05/14/22 Last Liquid Time 10:00 Last Solid Date 05/14/22 Last Solid Time 10:00 Social No alcohol and No tobacco Exam alert, oriented x 3, clear to auscultation bilaterally and regular rate & rhythm Airway Submandibular: within normal limits Cervical ROM: within normal limits Mallampati: Class II Dentition: false CV/HEM Atrial Fibrillation, Arrythmia, Coronary Artery Disease (CABG) and Hypertension Chronic Renal Insufficiency Metabolic Hyperlipidemia [facility] Lower Back Pain (h/o spine surgery) and Osteoarthritis/DJD Neuropsych Dementia (Parkinson's) Anesthetic Plan ASA status: 3 Anesthesia: Regional (specify below) (SAB) Medications/Allergies Home Medications Medication Instructions Recorded Confirmed Last Taken Type allopurinol 100 mg tablet 200 mg PO QAM 07/31/19 05/13/22 05/12/22 History insulin glargine 100 unit/mL 30 unit SUBCUT QAM 07/31/19 05/13/22 05/12/22 History subcutaneous solution (Lantus U-100 Insulin) isosorbide mononitrate 30 mg 30 mg PO QAM 07/31/19 05/13/22 05/12/22 History tablet,extended release 24 hr warfarin 5 mg tablet See Rx Instructions .Route .COMPLEX 12/06/19 05/13/22 12/05/21 History donepezil 10 mg tablet 10 mg PO BEDTIME 05/08/20 05/13/22 05/12/22 History metoprolol succinate 25 mg 12.5 mg PO QAM 12/12/20 05/13/22 05/12/22 History tablet,extended release 24 hr rosuvastatin 40 mg tablet 20 mg PO BEDTIME 10/26/21 05/13/22 05/12/22 History valproic acid (as sodium salt) 250 250 mg PO BID 10/26/21 05/13/22 05/12/22 History mg/5 mL (5 mL) oral solution loperamide 1 mg/7.5 mL oral liquid 2 mg (15 mL) PO QID PRN Diarrhea 12/09/21 05/13/22 Unknown Rx #300 mL citalopram 40 mg tablet (Celexa) 20 mg PO QAM 05/13/22 05/13/22 05/12/22 History furosemide 20 mg tablet 10 mg PO BID 05/13/22 05/13/22 Unknown History levothyroxine 25 mcg tablet 25 mcg PO QAM 05/13/22 05/13/22 05/12/22 History potassium chloride 20 mEq 10 meq PO BID 05/13/22 05/13/22 05/12/22 History tablet,extended release Allergies Allergy/AdvReac Type Severity Reaction Status Date / Time Iodinated Contrast Media Allergy Mild Unknown Verified 05/13/22 09:54 glipizide Allergy Unknown Verified 05/13/22 09:54 Current Medications Generic Name Dose Route Start Last Admin Trade Name Freq PRN Reason Stop Dose Admin Acetaminophen 650 mg 05/13/22 12:13 05/14/22 06:02 Acetaminophen 325 Mg Tablet PO 650 mg Q6H PRN Administration Mild/Mod Pain Or Temp >/= 101 Albuterol/Ipratropium 3 ml 05/15/22 09:00 05/15/22 09:05 Ipratropium-Albuterol 3 Ml Neb INHALATION 3 ml Q6H.RESP NAOMI Administration Allopurinol 200 mg 05/14/22 06:00 05/14/22 06:04 Allopurinol 100 Mg Tablet PO 200 mg QAM NAOMI Administration Atorvastatin Calcium 80 mg 05/13/22 21:00 05/14/22 21:29 Atorvastatin 40 Mg Tablet PO Not Given BEDTIME NAOMI Citalopram Hydrobromide 20 mg 05/14/22 06:00 05/14/22 06:04 Citalopram 20 Mg Tablet PO 20 mg QAM NAOMI Administration Donepezil HCl 10 mg 05/13/22 21:00 05/14/22 21:29 Donepezil 5 Mg Tablet PO Not Given BEDTIME NAOMI Sodium Chloride 1,000 mls @ 75 mls/hr 05/14/22 07:45 05/15/22 06:52 Sodium Chloride 0.9% IV 30 mls/hr .[id number] NAOMI Administration Sodium Chloride 1,000 mls @ 30 mls/hr 05/15/22 11:30 05/15/22 12:09 Sodium Chloride 0.9% IV 05/16/22 11:29 30 mls/hr .Q24H NAOMI Administration Insulin Human Lispro 0 unit 05/13/22 12:13 05/14/22 21:29 Insulin Lispro 100 Unit/1 Ml SUBCUT Not Given WM&BEDTIME NAOMI Protocol Isosorbide Mononitrate 30 mg 05/14/22 06:00 05/14/22 06:03 Isosorbide Mononitrate Er 30 Mg Tablet PO 30 mg QAM NAOMI Administration Levothyroxine Sodium 25 mcg 05/14/22 06:00 05/14/22 06:03 Levothyroxine 25 Mcg Tablet PO 25 mcg QAM NAOMI Administration Metoprolol Succinate 12.5 mg 05/14/22 06:00 05/14/22 06:03 Metoprolol Succinate Er (24 Hr) 25 Mg Tablet PO 12.5 mg QAM NAOMI Administration Morphine Sulfate 2 mg 05/13/22 12:13 05/14/22 21:37 Morphine 4 Mg/Ml Sdv 1 Ml IVP 2 mg Q4H PRN Administration SEVERE PAIN Valproic Acid 250 mg 05/13/22 18:00 05/14/22 17:58 Valproic Acid 250 Mg/5 Ml Udc PO Not Given BID NAOMI PFSH Anesthesia Medical History Afib Aphasia Chronic kidney disease Coronary artery disease Degenerative disc disease Dementia vascular Diabetes Dysarthria Glaucoma Gout History of adverse drug reaction reports history of significant reaction to either anesthesia or other perioperative medication that resulted in massive tongue swelling that limited airway and contributed to current dysarthria and PEG dependence History of angiography 09/2018 lower extremities, abdominal aorta - PAD predominantly below the knees, not able to do invasive intervention History of cerebellar stroke History of stress test 12/2020 Hyperlipidemia Hypertension Leaking PEG tube Pacemaker PAD (peripheral artery disease) Parkinson disease Thrombocytopenia Warfarin anticoagulation Surgical History History of CEA (carotid endarterectomy) History of coronary artery bypass graft History of coronary artery stent placement History of esophagogastroduodenoscopy (EGD) (~2018) S/P percutaneous endoscopic gastrostomy (PEG) tube placement history of leak, dysfunction, bleeding around site; replaced 12/[address] Chaves Family History Mother Stroke Father Heart disease Denies family history of Anesthesia complication Bleeding disorder Social History Smoking and tobacco status: former smoker Alcohol intake: former Former alcohol use details: Not in more than 30 years Household members: spouse Data Anesthesia 05/15/22 04:19 05/15/22 04:19 Short CBC 05/14/22 05/15/22 Range/Units 01:53 04:19 WBC 8.6 8.0 (4.0-10.0) 10^3/uL Hgb 11.5 L 12.7 (11.7-16.6) g/dL Hct 37.4 L 42.4 (42.0-52.0) % MCV 107.2 H 108.7 H (80-94) fl Plt Count 81 L 78 L (130-400) 10^3/cmm Neut % (Auto) 70.1 70.5 % Neut # (Auto) 6.03 5.62 (1.8-7.7) 10^3/uL BMP 05/14/22 05/15/22 01:53 04:19 Sodium 139 139 Potassium 5.1 5.3 H Chloride 104 103 Carbon Dioxide 28 30 H BUN 47 H 39 H Creatinine 1.3 H 1.2 Glucose 182 H 110 Calcium 9.2 9.5 Liver Function 05/14/22 Range/Units 01:53 Total Bilirubin 1.1 (0.15-1.2) mg/dL AST 28 (0-40) U/L ALT 14 (0-41) U/L Alkaline Phosphatase 102 (40-130) U/L Albumin 3.1 L (3.5-5.2) g/dL Coags 05/14/22 05/15/22 01:53 04:19 PT 22.50 H 17.20 H INR 1.94 H 1.37 H Cardiac Studies: Sestamibi Stress Test (Cardiology) 12/22
--- NOTE | 2022-05-15 13:48 | P.OP_ITS ---
Operative Report Date of procedure: May 15, 2022 Pre-op diagnosis: Preop Diagnosis Right femoral neck fracture Post-op diagnosis: same Procedure done: Hemiarthroplasty right hip Implants: [place] 1) Accolade cemented stem, size [] 2) 55 bipolar femoral head 3) 28mm/-4 neck length femoral head Pathology: none sent Surgeon: David Decker Estimated blood loss (mL): 100 Findings: The patient had the previously described displaced fracture of the femoral neck Disposition: PACU Procedure: The patient was taken to the operating room and a general anesthesia was provided by the anesthesia service. They were given 2 g of Ancef in addition to Levaquin given on the floor. And 1 g of tranexamic acid and positioned in the lateral position with the hip exposed. A 10 cm long incision was made over the greater trochanter with a scalpel blade. Dissection was carried down through the fascia bertin to the greater trochanter. The anterior two thirds of gluteus medius and minimus were elevated off the greater trochanter with electrocautery. The capsule was divided T like fashion. The hip was externally rotated and the neck brought up into the wound. An oscillating saw was really used to resect the neck just above the level of the lesser trochanter. The femoral head was removed and the acetabulumt sized to a 55 mm bipolar head. As the patient was elderly and bone quality was concerning cemented application was chosen. Sequential reaming and broaching of the canal was accomplished up to a size 6. A size 6 [place] Accolade cemented stem was cemented into place. A trial reduction with a -4 mm neck provided excellent stability. The final head and neck were placed and the hip reduced. The anterior capsule were reapproximated with 1 Ethibond. The gluteus medius and minimus were repaired through the greater trochanter with 5 Ethibond and reinforced with 1 Ethibond. The fascia bertin was closed with 1 Stratafix. The subcutaneous tissues were closed with 2-0 Stratafix. The skin was closed with a running 4-0 Stratafix. The incision was covered with a Prineo dressing. Sterile Opsitedressings were applied. The patient was placed in abduction pillow and taken recovery room in stable condition.
--- NOTE | 2022-05-15 13:57 | XRR_ITS ---
PROCEDURE INFORMATION: Exam: XR Right Hip Exam date and time: 05/15/2022 2:29 PM Age: 86 years old Clinical indication: Device placement; Other: Right bipolar hip; Prior surgery; Surgery date: Post-operative (0-2 days) TECHNIQUE: Imaging protocol: Radiologic exam of the Right hip. Views: 1 view hip with pelvis when performed. COMPARISON: CR XR hip RT 2-3V wo/w pel* [id number] 05/13/2022 9:08 AM FINDINGS: Bones/joints: Anatomic alignment of right hip arthroplasty. Soft tissues: Postoperative subcutaneous emphysema. Vasculature: Vascular calcification. XR/XR hip RT 1V wo/w pel [id number] IMPRESSION: Anatomic alignment of right hip arthroplasty.
--- NOTE | 2022-05-15 14:33 | ANE.PACU2 ---
Inpatient post-anesthesia follow up: Airway intact: Yes Vital signs: Temperature 99.0 F Pulse Rate 86 Respiratory Rate 16 Blood Pressure 109/58 Pulse Oximetry 93 Oxygen Delivery Me thod [ Oxymask Current Rate & Del vincent] Oxygen Delivery Me thod Nasal Cannula Oxygen Flow Rate [ Current Rate 5 & Delivery] Oxygen Flow Rate 3 Fraction of Inspir ed Oxygen Hydration adequate: Yes Nausea and vomiting: No Pain level: 1 Mental status: Baseline
[2022-05-15] MEDS: allopurinol 100 mg Tablet 200 MG PO (16:14)
[2022-05-15] MEDS: levothyroxine 25 mcg Tablet PO (16:14)
[2022-05-15] MEDS: isosorbide mononitrate ER 30 mg Tablet PO (16:14)
[2022-05-15] MEDS: citalopram 20 mg Tablet PO (16:15)
[2022-05-15] MEDS: metoprolol succinate ER (24 HR) 25 mg Tablet 12.5 MG PO (16:15)
[2022-05-15] MEDS: valproic acid 250 mg/5 mL UDC PO (17:06)
[2022-05-15 17:59] LABS: Glucose Point of Care 260 mg/dL (70-110)
[2022-05-15] MEDS: insulin lispro 100 unit/1 mL SUBCUT ×2 (18:06→23:06)
[2022-05-15 20:55] LABS: Glucose Point of Care 234 mg/dL (70-110)
[2022-05-15] MEDS: atorvastatin 40 mg Tablet 80 MG PO (23:05)
[2022-05-15] MEDS: donepezil 5 MG Tablet 10 MG PO (23:06)
[2022-05-15] MEDS: apixaban 5 mg Tablet PEG-TUBE (23:06)
[2022-05-15] MEDS: morphine 4 mg/mL SDV 1 mL 2 MG IVP (23:06)
[2022-05-16] VITALS (12 sets, daily range): BP systolic 114–162; BP diastolic 72–81; PULSE 85–118; RESP 16–20; TEMP 36.7–37.5; O2SAT 90–96
[2022-05-16] MEDS: ipratropium-albuterol 3 mL Neb INHALATION ×4 (02:01→22:30)
[2022-05-16] MEDS: sodium chloride 0.9% 1,000 ML 100 ML IV ×2 (04:58→18:09)
[2022-05-16] MEDS: levothyroxine 25 mcg Tablet PO (05:01)
[2022-05-16] MEDS: metoprolol succinate ER (24 HR) 25 mg Tablet 12.5 MG PO (05:01)
[2022-05-16] MEDS: citalopram 20 mg Tablet PO (05:01)
[2022-05-16] MEDS: allopurinol 100 mg Tablet 200 MG PO (05:02)
[2022-05-16] MEDS: isosorbide mononitrate ER 30 mg Tablet PO (05:08)
[2022-05-16 05:45] LABS: Basophils % 0.2 %; Hematocrit 41.2 % (42.0-52.0); Lymphocytes # 1.4 10^3/uL (0.8-4.8); Lymphocytes % 11.5 %; Mean Corpuscular HGB Conc 29.1 g/dL (30.0-36.0); Mean Corpuscular Hemoglobin 32.5 pg (28.0-34.0); Mean Corpuscular Volume 111.7 fl (80-94); Mean Platelet Volume 10.5 fL (7.4-10.4); Monocytes % 8.3 %; Neutrophils # 9.29 10^3/uL (1.8-7.7); Neutrophils % 79.4 %; Nucleated Red Blood Cells % 0 %; Platelet Count 83 10^3/cmm (130-400); Red Blood Count 3.69 10^6/uL (4.1-5.3); Red Cell Distribution Width 15.9 % (12.1-15.1); White Blood Count 11.7 10^3/uL (4.0-10.0)
[2022-05-16 06:12] LABS: Anion Gap 13.8 (5-19); Blood Urea Nitrogen 45 mg/dL (8-23); Calcium 9.3 mg/dL (8.5-10.5); Carbon Dioxide 24 mmol/L (22-29); Chloride 107 mmol/L (98-107); Creatinine Clr Calc Pharmacy 58.0242; Glucose 140 mg/dL (65-115); Osmolality Calculated 304 mOsm/kg (285-295); Potassium 4.8 mmol/L (3.5-5.1); Sodium 140 mmol/L (136-145)
[2022-05-16 06:19] LABS: Glucose Point of Care 153 mg/dL (70-110)
[2022-05-16] MEDS: insulin lispro 100 unit/1 mL SUBCUT ×4 (09:20→21:39)
[2022-05-16] MEDS: valproic acid 250 mg/5 mL UDC PO ×2 (09:21→18:09)
[2022-05-16] MEDS: apixaban 5 mg Tablet PEG-TUBE ×2 (09:21→21:37)
[2022-05-16] MEDS: levofloxacin-dextrose 5 % 750 MG/150 ML PREMIX 100 MG IV (10:37)
--- NOTE | 2022-05-16 11:33 | P.PN_ITS ---
Subjective Subjective: Patient was seen this morning, patient's is at bedside, she tells me he had a good night, he is tolerating his new PEG tube, the nursing staff were able to get him up to a chair this morning, he was in pain, the plan is for him to go to [facility] Vitals/I&O/Wt Last Vital Signs Temp 98.6 F 05/16/22 11:29 Pulse 96 05/16/22 11:29 Resp 16 05/16/22 11:29 BP 137/81 05/16/22 11:29 Pulse Ox 94 05/16/22 11:29 O2 Del Method 05/16/22 11:29 O2 Flow Rate 4 05/16/22 11:29 05/15/22 05/16/22 05/16/22 22:59 06:59 14:59 Intake Total 1999 / 2099 Output Total 550 / 1050 Balance 1450 / 1050 Weight last 48 hrs Weight 92.487 kg Physical Exam Const: COMMON NORMALS: no acute distress Resp: COMMON NORMALS: normal respiratory effort, No retractions, No use of accessory muscles and clear to auscultation bilaterally AUSCULTATION: clear to auscultation bilaterally Cardio: COMMON NORMALS: regular rate, regular rhythm, S1 normal heart sound present and S2 normal heart sound present RATE: regular rate RHYTHM: regular rhythm HEART SOUNDS: S1 normal heart sound present and S2 normal heart sound present GI: COMMON NORMALS: Normal to inspection, nondistended, normoactive bowel sounds present and non-tender OTHER: PEG tube in place Extremity: COMMON NORMALS: no pedal edema Psych: COMMON NORMALS: mental status grossly normal Urinary Catheter Management: Keenan: Cath Placed During This Visit: yes Reason for Continuing Indwelling Catheter: Other Urinary Catheter Date of Insertion: 05/13/22 Urinary Catheter Time of Insertion: 10:55 Data 05/16/22 05:11 05/16/22 05:11 A&P Assessment and plan (1) Fracture of femoral neck, right, closed: Status post hemiarthroplasty right hip Orthopedic consultation appreciated Continue Keenan, bedrest UA was checked, no evidence of infection Note that he had a recent CT scan of his head on May 09 that showed no acute changes following a fall at that time [place] Laura (2) Fall: See above Depakote level not elevated (3) Pneumonia: Concern of pneumonia on x-ray. I suspect that the patient chronically aspirates Continue Levaquin No fever, or significantly elevated white count. Try to wean oxygen Repeat chest x-ray today (4) Diabetes: Mild sliding scale insulin (5) Afib: Telemetry Continue home medications, including metoprolol Note mild abnormality on nuclear stress test in December with mild small area of reversible ischemia apical area and EF 48% on anticoagulation with Coumadin. Discussed with . Laura on discharge. (6) Dementia: Rather severe and progressive according to Redirect as needed Monitor for sundowning (7) Feeding difficulty: Status post PEG tube change out, tolerating new PEG tube well Plan Thrombocytopenia. Mild currently. Multiple other medical problems as outlined in past medical history Full code currently. reports she wants to change to allow natural , but still wants aggressive treatment regarding hip fracture. Eliquis for DVT prophylaxis Attestations Medical Necessity Statement*: Patient requires hospitalization for hip fracture, PEG tube changed out, A. 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
[2022-05-16 11:48] LABS: Glucose Point of Care 174 mg/dL (70-110)
--- NOTE | 2022-05-16 14:02 | PC.SOCIAL ---
Pg 2 IMM Explained to pt Pg 2 IMM. No questions voiced. Provided pt a copy. Initialed, dated, & timed a copy & placed in chart.
[2022-05-16 16:34] LABS: Glucose Point of Care 181 mg/dL (70-110)
[2022-05-16 20:43] LABS: Glucose Point of Care 214 mg/dL (70-110)
[2022-05-16] MEDS: donepezil 5 MG Tablet 10 MG PO (21:38)
[2022-05-16] MEDS: atorvastatin 40 mg Tablet 80 MG PO (21:38)
[2022-05-17] VITALS (11 sets, daily range): BP systolic 116–182; BP diastolic 59–81; PULSE 90–101; RESP 15–20; TEMP 36.4–36.8; O2SAT 92–96
[2022-05-17] MEDS: ipratropium-albuterol 3 mL Neb INHALATION ×2 (03:50→07:36)
[2022-05-17 05:20] LABS: Basophils % 0.1 %; Eosinophils % 0.2 %; Hematocrit 38.2 % (42.0-52.0); Hemoglobin 11.7 g/dL (11.7-16.6); Lymphocytes # 1.7 10^3/uL (0.8-4.8); Lymphocytes % 18.2 %; Mean Corpuscular HGB Conc 30.6 g/dL (30.0-36.0); Mean Corpuscular Volume 107.6 fl (80-94); Mean Platelet Volume 10.5 fL (7.4-10.4); Monocytes % 9.9 %; Neutrophils % 71.1 %; Nucleated Red Blood Cells % 0 %; Platelet Count 87 10^3/cmm (130-400); Red Blood Count 3.55 10^6/uL (4.1-5.3); Red Cell Distribution Width 16.1 % (12.1-15.1); White Blood Count 9.6 10^3/uL (4.0-10.0)
[2022-05-17 05:44] LABS: Alanine Aminotransferase 12 U/L (0-41); Albumin Level 2.7 g/dL (3.5-5.2); Alkaline Phosphatase 106 U/L (40-130); Anion Gap 11.7 (5-19); Aspartate Amino Transferase 29 U/L (0-40); Blood Urea Nitrogen 40 mg/dL (8-23); Calcium 9.3 mg/dL (8.5-10.5); Carbon Dioxide 26 mmol/L (22-29); Chloride 107 mmol/L (98-107); Globulin 3.2 g/dL (1.3-4.6); Glucose 138 mg/dL (65-115); Osmolality Calculated 302 mOsm/kg (285-295); Phosphorus 2.3 mg/dL (2.5-4.5); Potassium 4.7 mmol/L (3.5-5.1); Sodium 140 mmol/L (136-145); Total Protein 5.9 g/dL (6.6-8.7)
[2022-05-17 06:11] LABS: Glucose Point of Care 154 mg/dL (70-110)
[2022-05-17] MEDS: isosorbide mononitrate ER 30 mg Tablet PO (06:31)
[2022-05-17] MEDS: allopurinol 100 mg Tablet 200 MG PO (06:32)
[2022-05-17] MEDS: levothyroxine 25 mcg Tablet PO (06:32)
[2022-05-17] MEDS: citalopram 20 mg Tablet PO (06:32)
[2022-05-17] MEDS: metoprolol succinate ER (24 HR) 25 mg Tablet 12.5 MG PO (06:32)
--- NOTE | 2022-05-17 07:30 | PC.NURSE ---
Peg TUBE FEEDING THIS MORNING WAS ADJUSTED PER DR. FU VERBAL ORDER DUE TO FINDING HIGH RESIDUAL AFTER LAST FEEDING. PATIENT TOLERATED WELL.
[2022-05-17] MEDS: sodium chloride 0.9% 1,000 ML 100 ML IV (07:41)
[2022-05-17] MEDS: valproic acid 250 mg/5 mL UDC PO (09:40)
[2022-05-17] MEDS: insulin lispro 100 unit/1 mL SUBCUT ×2 (09:40→12:21)
[2022-05-17] MEDS: polyethylene glycol 3350 Pkt 17 gm PO (09:41)
[2022-05-17] MEDS: apixaban 5 mg Tablet PEG-TUBE (09:41)
[2022-05-17] MEDS: FUROsemide 10 mg/mL SDV 4mL 40 MG IVP (09:41)
--- NOTE | 2022-05-17 09:41 | P.DS_ITS ---
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, has PEG tube/Michael button Reason for Visit Reason for Visit: fall/ r hip/ shortening & rotation Hospital Course Hospital Course Mitchel Fishman is a 86 year old male presenting to the emergency department after a fall Patient was admitted to [facility] for femoral neck fracture, right, status post hemiarthroplasty, tolerated procedure well, [facility], Eliquis for DVT prophylaxis, there is concern for pneumonia on admission, he was managed with Levaquin, discharged on doxycycline For his atrial fibrillation, he was switched over to Eliquis on discharge For his feeding tube, it was changed out as inpatient, tolerated new PEG tube Patient has chronic elevated white count, some degree of chronic aspiration, continue to monitor Physical Exam Const: COMMON NORMALS: no acute distress ORIENTATION/CONSCIOUSNESS: Yes awake and Yes oriented to person; not oriented to place and not oriented to time Resp: COMMON NORMALS: normal respiratory effort, No retractions, No use of accessory muscles and clear to auscultation bilaterally AUSCULTATION: clear to auscultation bilaterally Cardio: COMMON NORMALS: regular rate, regular rhythm, S1 normal heart sound present and S2 normal heart sound present RATE: regular rate RHYTHM: regular rhythm HEART SOUNDS: S1 normal heart sound present and S2 normal heart sound present GI: COMMON NORMALS: Normal to inspection, nondistended, normoactive bowel sounds present and non-tender Extremity: COMMON NORMALS: no pedal edema Neuro: SENSORIUM/ORIENTATION: Yes oriented to person, No oriented to place and No oriented to time Psych: COMMON NORMALS: mental status grossly normal Urinary Catheter Management: Keenan: Cath Placed During This Visit: yes Reason for Continuing Indwelling Catheter: Other Urinary Catheter Date of Insertion: 05/13/22 Urinary Catheter Time of Insertion: 10:55 Discharge Data Studies Completed and Pending Completed Studies During Hospitalization Category Date Time Status XR chest 1V portable [id number] Routine Exams 05/15/22 08:44 Completed XR chest 1V portable [id number] Stat Exams 05/13/22 08:37 Completed XR hip RT 1V wo/w pel [id number] Routine Exams 05/15/22 13:57 Completed XR hip RT 2-3V wo/w pel* [id number] Stat Exams 05/13/22 08:00 Completed Pending at discharge Category Date Time Status Complete Blood Count w/Auto AM LABS Lab 05/18/22 04:00 Ordered Complete Blood Count w/Auto AM LABS Lab 05/19/22 04:00 Ordered Comprehensive Metabolic Panel AM LABS Lab 05/18/22 04:00 Ordered Comprehensive Metabolic Panel AM LABS Lab 05/19/22 04:00 Ordered Magnesium AM LABS Lab 05/18/22 04:00 Ordered Magnesium AM LABS Lab 05/19/22 04:00 Ordered Phosphorus AM LABS Lab 05/18/22 04:00 Ordered Phosphorus AM LABS Lab 05/19/22 04:00 Ordered Radiology Impressions Hip/Pelvis X-Ray 05/13/22 08:00 IMPRESSION: Subcapital femoral neck fracture. Chest X-Ray 05/15/22 08:44 IMPRESSION: 1. Cardiomegaly and asymmetric prominence of the pulmonary vasculature. 2. Emphysematous change, interstitial disease, and asymmetric airspace disease (left greater than right). ADDENDUM: 05/15/22 0952 While nonspecific, the findings could represent asymmetric pulmonary edema in the appropriate clinical setting. Hip X-Ray 05/15/22 13:57 IMPRESSION: Anatomic alignment of right hip arthroplasty. Laboratory Results WBC 9.6 10^3/uL (4.0-10.0) 05/17/22 05:09 RBC 3.55 10^6/uL (4.1-5.3) L 05/17/22 05:09 Hgb 11.7 g/dL (11.7-16.6) 05/17/22 05:09 Hct 38.2 % (42.0-52.0) L 05/17/22 05:09 MCV 107.6 fl (80-94) H 05/17/22 05:09 MCH 33.0 pg (28.0-34.0) 05/17/22 05:09 MCHC 30.6 g/dL (30.0-36.0) D 05/17/22 05:09 RDW 16.1 % (12.1-15.1) H 05/17/22 05:09 Plt Count 87 10^3/cmm (130-400) L 05/17/22 05:09 MPV 10.5 fL (7.4-10.4) H 05/17/22 05:09 Neut % (Auto) 71.1 % 05/17/22 05:09 Lymph % (Auto) 18.2 % 05/17/22 05:09 [place] % (Auto) 9.9 % 05/17/22 05:09 Eos % (Auto) 0.2 % 05/17/22 05:09 Baso % (Auto) 0.1 % 05/17/22 05:09 Neut # (Auto) 6.80 10^3/uL (1.8-7.7) 05/17/22 05:09 Lymph # (Auto) 1.7 10^3/uL (0.8-4.8) 05/17/22 05:09 [place] # (Auto) 1.0 10^3/uL (0.2-0.9) H 05/17/22 05:09 Eos # (Auto) 0.0 10^3/uL (0.0-0.8) 05/17/22 05:09 Baso # (Auto) 0.0 10^3/uL (0.0-0.1) 05/17/22 05:09 Nucleated RBC % (auto) 0 % 05/17/22 05:09 Nucleated RBCs # 0.0 /100WBC 05/17/22 05:09 PT 17.20 SECONDS (12.1-14.9) H 05/15/22 04:19 INR 1.37 (0.8-1.2) H 05/15/22 04:19 Sodium 140 mmol/L (136-145) 05/17/22 05:09 Potassium 4.7 mmol/L (3.5-5.1) 05/17/22 05:09 Chloride 107 mmol/L (98-107) 05/17/22 05:09 Carbon Dioxide 26 mmol/L (22-29) 05/17/22 05:09 Anion Gap 11.7 (5-19) 05/17/22 05:09 BUN 40 mg/dL (8-23) H 05/17/22 05:09 Creatinine 1.0 mg/dL (0.7-1.2) 05/17/22 05:09 GFR Calculation Not Reportable 05/17/22 05:09 Glucose 138 mg/dL (65-115) H 05/17/22 05:09 POC Glucose 154 mg/dL (70-110) H 05/17/22 06:04 Calculated Osmolality 302 mOsm/kg (285-295) H 05/17/22 05:09 Calcium 9.3 mg/dL (8.5-10.5) 05/17/22 05:09 Phosphorus 2.3 mg/dL (2.5-4.5) L 05/17/22 05:09 Magnesium 2.0 mg/dL (1.7-2.3) 05/17/22 05:09 Total Bilirubin 1.0 mg/dL (0.15-1.2) 05/17/22 05:09 AST 29 U/L (0-40) 05/17/22 05:09 ALT 12 U/L (0-41) 05/17/22 05:09 Alkaline Phosphatase 106 U/L (40-130) 05/17/22 05:09 Total Protein 5.9 g/dL (6.6-8.7) L 05/17/22 05:09 Albumin 2.7 g/dL (3.5-5.2) L 05/17/22 05:09 Globulin 3.2 g/dL (1.3-4.6) 05/17/22 05:09 Urine Color Yellow (Yellow) 05/13/22 10:52 Urine Appearance Clear (CLEAR) 05/13/22 10:52 Urine pH 7 (5-7) 05/13/22 10:52 Ur Specific [place] 1.010 (1.005-1.030) 05/13/22 10:52 Urine Protein Neg (Negative) 05/13/22 10:52 Urine Glucose (UA) Norm (Normal) 05/13/22 10:52 Urine Ketones Negative (Negative) 05/13/22 10:52 Urine Blood Trace (Negative) H 05/13/22 10:52 Urine Nitrate Negative (Negative) 05/13/22 10:52 Urine Bilirubin Neg (Negative) 05/13/22 10:52 Urine Urobilinogen Norm mg/dL (Negative) 05/13/22 10:52 Ur Leukocyte Esterase Negative (Negative) 05/13/22 10:52 Urine RBC 0-4 /hpf (0-2) H 05/13/22 10:52 Urine WBC None /hpf (0-5) 05/13/22 10:52 Ur Squamous Epith Cells 0-4 /hpf (0-5) H 05/13/22 10:52 Amorphous Sediment Not Reportable 05/13/22 10:52 Urine Bacteria None /hpf (NONE) 05/13/22 10:52 Valproic Acid 50.3 ug/mL (50-100) 05/13/22 07:32 Vitals Last Vital Signs Temp 98.3 F 05/17/22 07:52 Pulse 90 05/17/22 07:52 Resp 15 05/17/22 07:52 BP 116/70 05/17/22 07:52 Pulse Ox 94 05/17/22 07:52 O2 Del Method 05/17/22 07:52 O2 Flow Rate 4 05/17/22 08:00 Discharge Plan Discharge Patient Disposition: Xfer SNF Condition: Stable Prescriptions: New hydrocodone-acetaminophen 5-325 mg tablet 1 tab PO BID PRN (Reason: pain) 7 Days Qty: 14 0RF insulin lispro [Humalog U-100 Insulin] 100 unit/mL Solution See Rx Instructions .ROUTE .COMPLEX Qty: 10 0RF Rx Instructions: Inject subcut, 3 times daily with meal, based on low sliding scale provided doxycycline hyclate 100 mg tablet 100 mg feeding tube BID 5 Days Qty: 10 0RF Eliquis 5 mg Tablet 5 mg peg-tube BID@0900,2100 30 Days Qty: 60 0RF Continued donepezil 10 mg tablet 10 mg PO BEDTIME valproic acid (as sodium salt) 250 mg/5 mL (5 mL) solution 250 mg PO BID rosuvastatin 40 mg tablet 20 mg PO BEDTIME isosorbide mononitrate 30 mg Tablet Extended Release 24 Hr 30 mg PO QAM allopurinol 100 mg Tablet 200 mg PO QAM metoprolol succinate 25 mg Tablet Extended Release 24 Hr 12.5 mg PO QAM loperamide 1 mg/7.5 mL Liquid 2 mg PO QID PRN (Reason: Diarrhea) Qty: 300 0RF Celexa 40 mg Tablet 20 mg PO QAM levothyroxine 25 mcg Tablet 25 mcg PO QAM Changed insulin glargine [Lantus U-100 Insulin] 100 unit/mL Solution 10 unit SUBCUT QAM Qty: 10 0RF potassium chloride 20 mEq Tablet Extended Release 10 meq PO DAILY Qty: 30 0RF furosemide 20 mg tablet 10 mg PO DAILY 30 Days Qty: 30 0RF Discontinued warfarin 5 mg Tablet See Rx Instructions .ROUTE .COMPLEX Rx Instructions: 2.5mg SHABANA BALDERAS THUR, SAT 5mg MON, WED, FRI Discharge Orders: Discharge Order (Routine); Ordered 05/17/22 Ordered By: Rahul Pierce Referrals: [facility] [Outside] Marisela Pacheco MD [Primary Care Provider] - Discharge Diet: As Directed Discharge Activity: As per PT/OT instructions Patient Instructions: Opioid Safety Activity Restrictions/Additional Instructions: -Please monitor your blood sugars closely -Monitor your blood sugars 3 times daily as after meals -Please record your blood sugars, and a blood sugar log -For your NovoLog -Please inject blood sugar after meals based on sliding scale provided -Do not inject insulin if you do not eat as hypoglycemia kills -This is a NovoLog sliding scale -Insulin sliding ?fingerstick? Insulin ?141-180?2 units/sq 181-220?4 units/sq ?221-260?6 units/sq ?261-300?8 units/sq ?301-350 10 units/sq ?351-400 12 units/sq > 400? 14 units/sq -If your blood sugar is greater than 500 go to the emergency room -If your blood sugar is less than 60 or at anytime you feel lightheaded or dizzy or diaphoretic or have chest palpitations check your blood sugar, and eat a hard candy or drink orange juice and go immediately to the emergency room -Remember hypoglycemia kills, so if his blood sugar is less than 60 we have to increase it by taking in a sugary meal such as a hard candy or orange juice and go to the emergency room -If you have any questions please call us where here to help -Take Eliquis as prescribed, monitor for bloody or black stools if so go to emergency room -Discharged on oxygen therapy, wean as tolerated Discharge Attestations Time Spent in Discharge Care*: less than 30 min Status at Discharge: Cognitive status at discharge: moderately impaired cognition , Behavioral status at discharge: cooperative , Quality Metrics Clinical Quality Measures [ No reported AMI, CVA or VTE this stay] Coding Level of Care Code Acute Chg FW [place] note Diagnoses Fracture of femoral neck, right, closed S72.001A Fall W19.XXXA Pneumonia J18.9 Diabetes E11.9 Afib I48.91 Dementia F03.90 Feeding difficulty R63.3
--- NOTE | 2022-05-17 10:00 | XRR_ITS ---
PROCEDURE INFORMATION: Exam: XR Abdomen Exam date and time: 05/17/2022 10:51 AM Age: 86 years old Clinical indication: Other: Abdominal distention TECHNIQUE: Imaging protocol: Radiologic exam of the abdomen. Views: Frontal supine view of the abdomen. 1 View. COMPARISON: CT abdomen pelvis con [id number] 12/07/2021 1:39 PM FINDINGS: Tubes, catheters and devices: Percutaneous gastrostomy tube projects over the left upper quadrant. Gastrointestinal tract: Normal. No bowel dilation. Vasculature: Vascular calcifications. Bones/joints: Right hip hemiarthroplasty. XR/XR KUB portable [id number] IMPRESSION: Nonobstructive bowel gas pattern.
--- NOTE | 2022-05-17 10:05 | PC.NURSE ---
Notified Dr. Pierce when doing residuals for patients peg tube, some mucus chunks with blood noted. Dr. Pierce ordered KUB on patient.
--- NOTE | 2022-05-17 10:38 | P.PN_ITS ---
Subjective Subjective: Patient resting comfortably in bed. Awakens to voice. No complaint Vitals/I&O/Wt Last Vital Signs Temp 98.3 F 05/17/22 07:52 Pulse 90 05/17/22 07:52 Resp 15 05/17/22 07:52 BP 116/70 05/17/22 07:52 Pulse Ox 94 05/17/22 07:52 O2 Del Method 05/17/22 07:52 O2 Flow Rate 4 05/17/22 08:00 05/16/22 05/17/22 05/17/22 22:59 06:59 14:59 Intake Total 520 / 2390 1570 / 3960 Output Total 600 / 600 800 / 1400 Balance -80 / 1790 770 / 2560 Weight last 48 hrs Weight 204 lb 1 oz Weight 203 lb 14.4 oz Physical Exam Narrative: Right hip incision clean and dry. Minimal swelling right thigh. Urinary Catheter Management: Keenan: Cath Placed During This Visit: yes Reason for Continuing Indwelling Catheter: Other Urinary Catheter Date of Insertion: 05/13/22 Urinary Catheter Time of Insertion: 10:55 Data 05/17/22 05:09 05/17/22 05:09 A&P Assessment and plan (1) Status post right hip replacement: Continue to mobilize with therapy. We will need longterm. Attestations Medical Necessity Statement*: Okay for longterm per Ortho. 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
[2022-05-17 11:14] LABS: Glucose Point of Care 178 mg/dL (70-110)
--- NOTE | 2022-05-17 11:17 | PC.NURSE ---
Called report to Gail Crouch at [facility]
[2022-05-17] MEDS: levofloxacin-dextrose 5 % 750 MG/150 ML PREMIX 100 MG IV (11:39)
== END 2022-05-17 13:35 | disposition skilled nursing facility (03) | DRG 521 ==
LOC: ER 08:00 → MEDSURG 12:22
PROVIDERS: Orthopaedic Surgery; Admitting Provider Internal Medicine; Emergency Provider Family Medicine; PCP Family Medicine; Visit Provider Family Medicine
PROC: 0SRR0J9 Replacement of Right Hip Joint, Femoral Surface with Synthetic Substitute, Cemented, Open Approach (ICD-10-PCS; CPT 27125; principal; 2022-05-15 12:00)
DX: S72.011A Unspecified intracapsular fracture of right femur, initial encounter for closed fracture (principal); J69.0 Pneumonitis due to inhalation of food and vomit; I48.20 Chronic atrial fibrillation, unspecified; R47.01 Aphasia; K94.23 Gastrostomy malfunction; W18.30XA Fall on same level, unspecified, initial encounter; G20 Parkinson's disease; F02.C0 Dementia in other diseases classified elsewhere, severe, without behavioral disturbance, psychotic disturbance, mood disturbance, and anxiety; E11.22 Type 2 diabetes mellitus with diabetic chronic kidney disease; I12.9 Hypertensive chronic kidney disease with stage 1 through stage 4 chronic kidney disease, or unspecified chronic kidney disease; N18.31 Chronic kidney disease, stage 3a; I25.10 Atherosclerotic heart disease of native coronary artery without angina pectoris; Z95.1 Presence of aortocoronary bypass graft; Z95.5 Presence of coronary angioplasty implant and graft; H40.9 Unspecified glaucoma; M10.9 Gout, unspecified; Z86.73 Personal history of transient ischemic attack (TIA), and cerebral infarction without residual deficits; E78.5 Hyperlipidemia, unspecified; Z95.0 Presence of cardiac pacemaker; E11.51 Type 2 diabetes mellitus with diabetic peripheral angiopathy without gangrene; D69.6 Thrombocytopenia, unspecified; Z87.891 Personal history of nicotine dependence; Z79.4 Long term (current) use of insulin; Z91.041 Radiographic dye allergy status; Z88.8 Allergy status to other drugs, medicaments and biological substances
CPT/HCPCS: 36415; 36416; 51702; 71045; 73501; 73502; 74018; 80048; 80053; 80164; 81001; 82962; 83735; 84100; 85025; 85610; 93005; 94640; 96365; 96372; 96375; 97162; 97165; 97530; 97535; 99285; C1713; C1776; J1100; J1650; J1815; J1940; J1956; J2270; J2370; J2405; J2704; J3010; J3430; J7030

== ENCOUNTER 2022-07-03 17:28 | Emergency (ER) | payer OTHER, SELFPAY ==
[2022-07-03] VITALS (16 sets, daily range): BP systolic 128–154; BP diastolic 64–89; PULSE 81–88; RESP 16–18; TEMP 36.7; O2SAT 92–95; BMI 24.4
--- NOTE | 2022-07-03 17:44 | CTR_ITS ---
PROCEDURE INFORMATION: Exam: CT Head Without Contrast Exam date and time: 07/03/2022 6:34 PM Age: 86 years old Clinical indication: Stroke-like symptoms; Altered mental status/memory loss; Additional info: Symptoms of acute stroke TECHNIQUE: Imaging protocol: Computed tomography of the head without contrast. Radiation optimization: All CT scans at this facility use at least one of these dose optimization techniques: automated exposure control; mA and/or kV adjustment per patient size (includes targeted exams where dose is matched to clinical indication); or iterative reconstruction. Other technique: STROKE PROTOCOL was implemented. 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 Mild to moderate brain atrophy and white matter chronic microvascular changes are noted. No hemorrhage or evidence of acute infarction. Cerebral ventricles: No ventriculomegaly. Paranasal sinuses: Visualized sinuses are unremarkable. No fluid levels. Mastoid air cells: Visualized mastoid air cells are well aerated. Bones/joints: Unremarkable. No acute fracture. Soft tissues: Unremarkable. CT/CT head thrombolytic [id number] IMPRESSION: No acute intracranial abnormality. ASSESSMENT: ASPECTS ([place] Stroke Program Early CT Score) is 10.
--- NOTE | 2022-07-03 18:54 | W.ED.GENADLT ---
HPI - General Adult General: Chief complaint: General Medical Stated complaint: Stroke Time Seen by Provider: 07/03/22 17:43 Source: patient and family Limitations: no limitations History of Present Illness: This patient came to the emergency department with his because she was concerned that a few days ago she noted some asymmetric tracking of his eyes and she thought he might of had a stroke at that time. She states it resolved and has not had any more episodes that she is aware of. He was recently admitted to this facility last fall for a femoral neck fracture underwent arthroplasty for that procedure and was discharged to long-term care facility for postoperative rehab. He has a history of atrial fibrillation was on warfarin previously but was switched to Eliquis at discharge from this facility and continues on Eliquis. Patient's states that when she contacted primary care office about her concerns she relates that they told her it could be due to his Eliquis. She is here now because she would like a CT scan performed to ensure that there is been no stroke. His history is otherwise remarkable for having a carotid endarterectomy in [place] and apparently had some complications at surgery that included some damage to nerves and proximity to the carotid artery causing some deviation of his tongue and some vocal abnormalities. He has had no fevers falls or other constitutional complaints. She is not noted any focal weakness etc. He denies any complaints at this time and states he feels fine. There is also should should be noted he has diabetes but that is been relatively well controlled as far as the patient's knows. Associated symptoms: Deny chest pain, confusion, dyspnea, headache(s), nausea, rash, palpitations or vomiting Review of Systems Const: Denies: fever(s) or chills Eyes: Denies: change in vision or eye discomfort ENMT: Denies: throat pain, odynophagia, nasal discharge or nasal congestion Card: Denies: chest pain or palpitations Resp: Denies: dyspnea, productive cough or non-productive cough GI: Denies: abdominal pain, nausea or vomiting : Denies: difficulty urinating or dysuria Musc: Denies: neck pain, back pain or extremity pain Skin/Breast: Denies: rash Neuro: Denies: headache(s), numbness in extremities, weakness in extremities, dizziness, vertigo, confusion or Slurred speech present Jeovany/Lymph: Reports: easy bruising PFSH ED PFSH: Medical History Afib Aphasia Chronic kidney disease Coronary artery disease Degenerative disc disease Dementia vascular Diabetes Dysarthria Glaucoma Gout History of adverse drug reaction reports history of significant reaction to either anesthesia or other perioperative medication that resulted in massive tongue swelling that limited airway and contributed to current dysarthria and PEG dependence History of angiography 09/2018 lower extremities, abdominal aorta - PAD predominantly below the knees, not able to do invasive intervention History of cerebellar stroke History of stress test 12/2020 Hyperlipidemia Hypertension Leaking PEG tube Pacemaker PAD (peripheral artery disease) Parkinson disease Thrombocytopenia Warfarin anticoagulation Surgical History History of CEA (carotid endarterectomy) History of coronary artery bypass graft History of coronary artery stent placement History of esophagogastroduodenoscopy (EGD) (~2018) S/P percutaneous endoscopic gastrostomy (PEG) tube placement history of leak, dysfunction, bleeding around site; replaced 12/[address] Chaves Family History Mother Stroke Father Heart disease Denies family history of Anesthesia complication Bleeding disorder Social History Smoking and tobacco status: former smoker Alcohol intake: former Former alcohol use details: Not in more than 30 years Household members: spouse Physical Exam Narrative: EXAM NARRATIVE: 1 who is alert makes good eye contact. His speech is somewhat dysarthric but generally understandable and according to this is his baseline. Const: COMMON NORMALS: no acute distress, patient oriented x3 and healthy appearing GENERAL APPEARANCE: cooperative ORIENTATION/CONSCIOUSNESS: Yes awake, Yes oriented to person and Yes oriented to place HENMT: COMMON NORMALS: normocephalic, atraumatic, moist oral mucous membranes and oropharynx normal HEAD & SCALP: normocephalic and atraumatic; no scalp tenderness and no Temporal artery tenderness present Eye: COMMON NORMALS: Equal, round and reactive pupils present, EOMs intact bilaterally, conjunctivae normal, normal visual haynes by confrontation and fundi normal bilaterally CONJUNCTIVA: Yes conjunctivae normal PUPIL: Yes Equal, round and reactive pupils present DIRECT OPHTHALMOSCOPY: Yes fundi normal bilaterally Neck/C-Spine: COMMON NORMALS: full ROM, no JVD and No carotid bruits Chest: COMMONS NORMALS: normal inspection of the chest Resp: COMMON NORMALS: normal respiratory effort, No retractions and clear to auscultation bilaterally AUSCULTATION: clear to auscultation bilaterally Cardio: COMMON NORMALS: no JVD, regular rate and regular rhythm RATE: regular rate RHYTHM: regular rhythm GI: COMMON NORMALS: Soft to palpation and non-tender PALPATION: Yes Soft to palpation Back/Pelvis: COMMON NORMALS: thoracic and lumbar spine normal to inspection, no thoracic nor lumbar tenderness and straight leg raise negative bilaterally Extremity: COMMON NORMALS: normal to inspection, full ROM, capillary refill normal, no calf tenderness and no pedal edema Neuro: COMMON NORMALS: patient oriented x3, moves all extremities, no focal motor deficits and no sensory deficits noted SENSORIUM/ORIENTATION: Yes oriented to person and Yes oriented to place CRANIAL NERVES: Yes CN normal except as noted Psych: COMMON NORMALS: mental status grossly normal Skin: COMMON NORMALS: no rashes or lesions noted, no wounds and turgor normal GENERAL SKIN EXAM: no rashes or lesions noted and turgor normal Course Vital Signs: Vital signs: Vital Signs Temperature 98.0 F 07/03/22 17:32 Pulse Rate 81 07/03/22 17:32 Respiratory Rate 16 07/03/22 17:32 Blood Pressure 128/64 07/03/22 17:32 Pulse Oximetry 95 07/03/22 17:32 Oxygen Delivery Me thod 07/03/22 17:32 MDM - General Adult Medical Decision Making This gentleman was brought to the emergency department by at the recommendations of primary care for imaging to ensure that he had no evidence of a hemorrhagic stroke etc. This was as result of her noting some abnormal extraocular motion several days ago. This resolved spontaneously and has not recurred since her observation at that time. No other focal symptoms have been noted by patient or spouse. He does have a history of diabetes as well as a history of atrial fibrillation and was switched to Eliquis after his recent hospitalization for hip arthroplasty. He has been in rehab post hospitalization to undergo rehabilitation for his hip fracture. His evaluation clinically did not reveal any findings of concern. He had no abnormalities on his ocular or remainder of his neurologic examination. He remained at his baseline per his spouse who was present during examination. A noncontrast CT was obtained which did not reveal any evidence of acute intracranial hemorrhage or other intracranial findings at this time. He clinically looks stable and we discussed possible etiologies of what she may have perceived at the time. He certainly does not have any evidence at this time of a persistent ophthalmoplegia or any other focal neurologic findings. Is appropriately medicated for stroke reduction because of his atrial fibrillation. At this time there is no evidence of an ongoing emergency medical condition that requires further evaluation and stabilization. We discussed continuing his usual medications and following up should he develop any new persistent or worsening symptoms. Lab Data I reviewed the patient's lab results. Radiology Impressions Head CT 07/03/22 17:44 IMPRESSION: No acute intracranial abnormality. ASSESSMENT: ASPECTS ([place] Stroke Program Early CT Score) is 10. Discharge Plan Discharge Patient Disposition: Home Clinical Impression: Afib, Diabetes Condition: Stable Prescriptions: No Action donepezil 10 mg tablet 10 mg PO BEDTIME valproic acid (as sodium salt) 250 mg/5 mL (5 mL) solution 250 mg PO BID rosuvastatin 40 mg tablet 20 mg PO BEDTIME isosorbide mononitrate 30 mg Tablet Extended Release 24 Hr 30 mg PO QAM allopurinol 100 mg Tablet 200 mg PO QAM metoprolol succinate 25 mg Tablet Extended Release 24 Hr 12.5 mg PO QAM loperamide 1 mg/7.5 mL Liquid 2 mg PO QID PRN (Reason: Diarrhea) Qty: 300 0RF Celexa 40 mg Tablet 20 mg PO QAM levothyroxine 25 mcg Tablet 25 mcg PO QAM Humalog U-100 Insulin 100 unit/mL Solution See Rx Instructions .ROUTE .COMPLEX Qty: 10 0RF Rx Instructions: Inject subcut, 3 times daily with meal, based on low sliding scale provided Lantus U-100 Insulin 100 unit/mL Solution 10 unit SUBCUT QAM Qty: 10 0RF furosemide 20 mg tablet 10 mg PO DAILY 30 Days Qty: 30 0RF potassium chloride 20 mEq Tablet Extended Release 10 meq PO DAILY Qty: 30 0RF Discharge Orders: Discharge ED (Routine); Ordered 07/03/22 Ordered By: Major Talbot Referrals: Marisela Pacheco MD [Primary Care Provider] - Discharge Diet: Usual diet and Diabetic Discharge Activity: Increase activity as tolerated Patient Instructions: Opioid Safety, Pain Management Activity Restrictions/Additional Instructions: As we discussed while you are in the emergency department there is no evidence at this time of any bleeding in your brain or any evidence of a stroke within the limitations of a noncontrasted CT scan that was performed. Your clinical examination was also reassuring. Continue all usual medications and should you develop any reoccurrence of your symptoms, weakness, difficulty with speech over your baseline or any other concerns you should return to the emergency department immediately. Otherwise follow-up with your physician for routine care. Coding Level of Care Code ED Administrative Volunteer for Feliberto Miles
== END 2022-07-03 21:34 | disposition home or self-care (01) ==
PROVIDERS: Emergency Provider Emergency Medicine; PCP Family Medicine
DX: I48.91 Unspecified atrial fibrillation (principal); Z79.4 Long term (current) use of insulin; Z87.891 Personal history of nicotine dependence; Z95.1 Presence of aortocoronary bypass graft; I12.9 Hypertensive chronic kidney disease with stage 1 through stage 4 chronic kidney disease, or unspecified chronic kidney disease; E11.22 Type 2 diabetes mellitus with diabetic chronic kidney disease; N18.9 Chronic kidney disease, unspecified; I25.10 Atherosclerotic heart disease of native coronary artery without angina pectoris; G20 Parkinson's disease; F02.80 Dementia in other diseases classified elsewhere, unspecified severity, without behavioral disturbance, psychotic disturbance, mood disturbance, and anxiety; E78.5 Hyperlipidemia, unspecified; Z95.0 Presence of cardiac pacemaker; Z86.73 Personal history of transient ischemic attack (TIA), and cerebral infarction without residual deficits
CPT/HCPCS: 70450; 99284

== ENCOUNTER 2022-07-18 13:46 | Inpatient (IN) | payer OTHER, SELFPAY ==
[2022-07-18 13:51] VITALS: BP 149/74; PULSE 110; TEMP 36.3; O2SAT 94
--- NOTE | 2022-07-18 13:52 | ED_ITS ---
HPI - Male Genitourinary General: Chief complaint: Urogenital-Male Stated complaint: PAINFUL URINATION Time Seen by Provider: 07/18/22 13:51 Limitations: altered mental status History of Present Illness: Mr. Burnett is a 86-year-old gentleman with history of dementia, PEG tube, diabetes, atrial fibrillation, CKD, dyslipidemia presenting to the emergency department for chest pain and urinary symptoms. The patient himself does not provide clinical history, somewhat worse than his baseline though he does have dementia. Apparently 2 days ago he started reporting some chest discomfort. No associated cough. He also has had foul- smelling urine and diarrhea. Course of symptoms has worsened. No recent antibiotic use. He has been compliant with medications and blood sugars have been well controlled. History is otherwise limited by patient's mental status and provided by patient's at bedside. Onset (ago): day(s) Duration: progressively worsening Location: abdomen Relieving factors: none Exacerbating factors: none Associated symptoms: Reports other Review of Systems General: Reports: ROS unobtainable due to mental status PFSH ED PFSH: Medical History Afib Aphasia Chronic kidney disease Coronary artery disease Degenerative disc disease Dementia vascular Diabetes Dysarthria Glaucoma Gout History of adverse drug reaction reports history of significant reaction to either anesthesia or other perioperative medication that resulted in massive tongue swelling that limited airway and contributed to current dysarthria and PEG dependence History of angiography 09/2018 lower extremities, abdominal aorta - PAD predominantly below the knees, not able to do invasive intervention History of cerebellar stroke History of stress test 12/2020 Hyperlipidemia Hypertension Leaking PEG tube Pacemaker PAD (peripheral artery disease) Parkinson disease Thrombocytopenia Warfarin anticoagulation Surgical History History of CEA (carotid endarterectomy) History of coronary artery bypass graft History of coronary artery stent placement History of esophagogastroduodenoscopy (EGD) (~2018) S/P percutaneous endoscopic gastrostomy (PEG) tube placement history of leak, dysfunction, bleeding around site; replaced 12/[address] Chaves Family History Mother Stroke Father Heart disease Denies family history of Anesthesia complication Bleeding disorder Social History Smoking and tobacco status: former smoker Alcohol intake: former Former alcohol use details: Not in more than 30 years Household members: spouse Physical Exam Const: GENERAL APPEARANCE: well developed, ill appearing and frail appearing HENMT: COMMON NORMALS: normocephalic and atraumatic HEAD & SCALP: normocephalic and atraumatic Eye: COMMON NORMALS: conjunctivae normal CONJUNCTIVA: Yes conjunctivae normal SCLERA: sclerae normal Neck/C-Spine: COMMON NORMALS: supple GENERAL: Yes trachea midline Resp: COMMON NORMALS: clear to auscultation bilaterally EFFORT & INSPECTION: Yes able to speak in complete sentences AUSCULTATION: clear to auscultation bilaterally Cardio: COMMON NORMALS: regular rhythm RATE: tachycardic RHYTHM: regular rhythm GI: COMMON NORMALS: Soft to palpation PALPATION: Yes Soft to palpation, Yes Tenderness to palpation present (GI), No Guarding due to palpation present (GI) and No Rigid due to palpation : COMMON NORMALS: Yes normal external exam, Yes Testes normal and Yes scrotum normal OTHER: Urine has potent smell Extremity: GENERAL: Yes normal exam except as noted and No edema Neuro: COMMON NORMALS: moves all extremities SENSORIUM/ORIENTATION: Yes Orientation impaired Psych: MEMORY/COGNITION: Yes cognition grossly impaired Course Vital Signs: Vital signs: Vital Signs Temperature 97.8 F 07/22/22 14:39 Pulse Rate 94 07/22/22 14:39 Respiratory Rate 18 07/22/22 14:39 Blood Pressure 143/78 07/22/22 14:39 Pulse Oximetry 95 07/22/22 14:39 Oxygen Delivery Me thod 07/22/22 12:00 [facility] - Male Medical Decision Making 86-year-old gentleman presenting with urinary concerns. History is limited by mental status. There are no obvious focal neurologic deficits associated with change in neurologic status. Patient is ill on appearance. EKG shows atrial fibrillation with nonspecific ST segment abnormalities. Left bundle branch block, frequent PVCs, no STEMI. Similar upon repeat and in comparison to prior. Labs notable for leukocytosis, normal hemoglobin though macrocytosis is present, normal platelet count. Metabolic panel with some evidence of mild dehydration with hyponatremia, BUN is elevated with normal creatinine. Negative range 2- hour delta troponin.D-dimer is elevated. Urinalysis is not convincing for urinary tract infection. Viral panel negative. Normal lactic acid Chest x-ray with questionable left lower lobe infiltrate. Given severity of illness and no clear source identified as well as elevated D-dimer CT imaging is appropriate. CT with no PE. There are small bilateral pleural effusions with opacities. Cirrhosis present with abnormal appearance of gallbladder. Ultrasound gallbladder negative for cholecystitis. During ED course patient treated with IV fluids, broad-spectrum antibiotics for empiric therapy. Upon reassessment patient mildly improved though certainly still remains ill-appearing. Most likely etiology of patient symptoms is moaning with sepsis. The results of ED evaluation were discussed with the patient including plan for admission due to requirement for level of care not available if discharged to prevent significant worsening/deterioration. Patient agreeable with plan. Discussed with hospitalist service who was agreeable to admit patient. Medical Records I reviewed the patient's medical records. Lab Data I reviewed the patient's lab results. 07/20/22 03:28 07/20/22 03:28 Radiology Impressions Chest X-Ray 07/18/22 14:05 IMPRESSION: 1. Mild interstitial infiltrate in the left lower lobe that could represent deve loping pneumonia. Chest/Abdomen/Pelvis CT 07/18/22 14:42 IMPRESSION: 1. Small bilateral pleural effusions with patchy infiltrates in the lung bases with compressive atelectasis.Correlation for pneumonia. 2. Cirrhotic liver with splenomegaly . 3. Distended hydropic gallbladder with wall thickening and surrounding induration. Increased attenuation in the gallbladder lumen suspicious for gallbl adder hemorrhage, infection, or gallbladder mass. Recommend ultrasound in further evaluation. Correlation for cholecystitis. 4. Gallbladder abuts the splenic flexure colon with associated colonic wall thickening and induration likely reactive. 5. No hydronephrosis in either kidney. Atrophic kidneys bilaterally. 6. Diffuse bladder wall thickening suspicious for cystitis. 7. PEG tube in place. Notified Girma Rm MD at 07/18/2022 4:02 PM. Gallbladder Ultrasound 07/18/22 15:57 IMPRESSION: Gallbladder tumefactive sludge, negative for cholecystitis. Laboratory Results WBC 14.0 10^3/uL (4.0-10.0) H 07/18/22 14:17 RBC 3.86 10^6/uL (4.1-5.3) L 07/18/22 14:17 Hgb 12.0 g/dL (11.7-16.6) 07/18/22 14:17 Hct 39.9 % (42.0-52.0) L 07/18/22 14:17 MCV 103.4 fl (80-94) H 07/18/22 14:17 MCH 31.1 pg (28.0-34.0) 07/18/22 14:17 MCHC 30.1 g/dL (30.0-36.0) 07/18/22 14:17 RDW 15.0 % (12.1-15.1) 07/18/22 14:17 Plt Count 149 10^3/cmm (130-400) 07/18/22 14:17 MPV 10.5 fL (7.4-10.4) H 07/18/22 14:17 Neut % (Auto) 73.2 % 07/18/22 14:17 Lymph % (Auto) 19.1 % 07/18/22 14:17 [place] % (Auto) 6.8 % 07/18/22 14:17 Eos % (Auto) 0.1 % 07/18/22 14:17 Baso % (Auto) 0.4 % 07/18/22 14:17 Neut # (Auto) 10.24 10^3/uL (1.8-7.7) H 07/18/22 14:17 Lymph # (Auto) 2.7 10^3/uL (0.8-4.8) 07/18/22 14:17 [place] # (Auto) 1.0 10^3/uL (0.2-0.9) H 07/18/22 14:17 Eos # (Auto) 0.0 10^3/uL (0.0-0.8) 07/18/22 14:17 Baso # (Auto) 0.1 10^3/uL (0.0-0.1) 07/18/22 14:17 Nucleated RBC % (auto) 0 % 07/18/22 14:17 Nucleated RBCs # 0.0 /100WBC 07/18/22 14:17 D-Dimer 3.72 ug/mIFEU (0-0.59) H 07/18/22 14:17 Sodium 135 mmol/L (136-145) L 07/18/22 14:17 Potassium 4.9 mmol/L (3.5-5.1) 07/18/22 14:17 Chloride 99 mmol/L (98-107) 07/18/22 14:17 Carbon Dioxide 24 mmol/L (22-29) 07/18/22 14:17 Anion Gap 16.9 (5-19) 07/18/22 14:17 BUN 34 mg/dL (8-23) H 07/18/22 14:17 Creatinine 0.9 mg/dL (0.7-1.2) 07/18/22 14:17 GFR Calculation Not Reportable 07/18/22 14:17 Glucose 135 mg/dL (65-115) H 07/18/22 14:17 POC Glucose 142 mg/dL (70-110) H 07/18/22 14:24 Calculated Osmolality 290 mOsm/kg (285-295) 07/18/22 14:17 Lactic Acid 1.9 mmol/L (0.5-2.2) 07/18/22 14:17 Calcium 9.3 mg/dL (8.5-10.5) 07/18/22 14:17 Total Bilirubin 0.4 mg/dL (0.15-1.2) 07/18/22 14:17 AST 32 U/L (0-40) 07/18/22 14:17 ALT 13 U/L (0-41) 07/18/22 14:17 Alkaline Phosphatase 176 U/L (40-130) H 07/18/22 14:17 Troponin T Baseline 32 ng/L (0-15) H 07/18/22 14:17 Troponin T 120 Minute 30.35 ng/L (0-15) H 07/18/22 16:15 Delta Troponin T -1.65 ABS# (0-10) L 07/18/22 16:15 NT-Pro-B Natriuret Pep 8547 pg/mL (0-450) H 07/18/22 14:17 Total Protein 7.2 g/dL (6.6-8.7) 07/18/22 14:17 Albumin 2.6 g/dL (3.5-5.2) L 07/18/22 14:17 Globulin 4.6 g/dL (1.3-4.6) 07/18/22 14:17 Lipase 139 U/L (13-60) H 07/18/22 14:17 Procalcitonin 0.18 ng/mL (0-0.5) 07/18/22 16:15 TSH 3.81 uIU/mL (0.27-4.20) 07/18/22 14:17 Urine Color Yellow (Yellow) 07/18/22 14:55 Urine Appearance Clear (CLEAR) 07/18/22 14:55 Urine pH 6 (5-7) 07/18/22 14:55 Ur Specific [place] 1.010 (1.005-1.030) 07/18/22 14:55 Urine Protein 1+ (Negative) H 07/18/22 14:55 Urine Glucose (UA) Norm (Normal) 07/18/22 14:55 Urine Ketones Negative (Negative) 07/18/22 14:55 Urine Blood 2+ (Negative) H 07/18/22 14:55 Urine Nitrate Negative (Negative) 07/18/22 14:55 Urine Bilirubin Neg (Negative) 07/18/22 14:55 Prot Sulfosalicylic Acd Negative (Negative) 07/18/22 14:55 Urine Urobilinogen 1 mg/dL (Negative) H 07/18/22 14:55 Ur Leukocyte Esterase Negative (Negative) 07/18/22 14:55 Urine RBC 0-4 /hpf (0-2) H 07/18/22 14:55 Urine WBC 0-4 /hpf (0-5) H 07/18/22 14:55 Ur Squamous Epith Cells 0-4 /hpf (0-5) H 07/18/22 14:55 Amorphous Sediment Not Reportable 07/18/22 14:55 Urine Bacteria Trace /hpf (NONE) 07/18/22 14:55 Hyaline Casts 0-4 /lpf H 07/18/22 14:55 Coronavirus 229E (PCR) Not detected (NOT DETECT) 07/18/22 16:57 SARS-CoV-2 (PCR) Not detected (NOT DETECT) 07/18/22 16:57 Critical Care Time Critical Care Time: Critical Care Time: Yes Total Critical Care Time: 35 Attestation: Due to a high probability of clinically significant, possibly life threatening deterioration, the patient required my highest level of attention and pre paredness to intervene emergently and I personally spent this critical care time directly and personally managing the patient. This critical care time included obtaining a history; examining the patient; pulse oximetry; ordering and review of laboratory and imaging studies; arranging urgent treatment with development of a management plan; evaluation of patient's response to treatment; frequent re assessment; and, discussions with other providers as applicable. It was exclusive of separately billable procedures. Primary system involved is cardiopulmonary with infectious disease. Discharge Plan Discharge Patient Disposition: Admitted As Inpatient Admit Provider: Howie Barajas Clinical Impression: Pneumonia, Sepsis Condition: Stable Discharge Diet: Usual diet Discharge Activity: Limit activity as instructed Coding Level of Care Code ED Sat Act Instructor for Chg Fwd Exam Comprehensive
--- NOTE | 2022-07-18 14:05 | XR_ITS ---
WS: [id number] Exam: XR chest 1V portable [id number] Date/Time of Exam: 07/18/2022 2:08 PM Reason For Exam: cp Comparison 05/15/2022. There is mild infiltrate in the left lung base the right lung is clear. The lungs are fully expanded. Heart size is normal for technique. A permanent cardiac pacer superimposes the right chest. Signs of previous CABG surgery. Monitoring leads superimpose the chest. XR/XR chest 1V portable [id number] IMPRESSION: 1. Mild interstitial infiltrate in the left lower lobe that could represent dev eloping pneumonia.
--- NOTE | 2022-07-18 14:06 | ECG_ITS ---
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 Measurements Intervals [place] Rate: 101 P: 0 IN: 0 QRS: -1 QRSD: 88 T: 77 QT: 325 QTc: 423 Interpretive Statements ATRIAL FIBRILLATION DEMAND VENTRICULAR PACING Compared to ECG 05/13/2022 08:57:57 T-wave abnormality still present Electronically Signed On 07-18-2022 23:47:35 ASSISTANT PASTRY CHEF by Jessica Lomax M.D. [id number]
[2022-07-18 14:28] LABS: Glucose Point of Care 142 mg/dL (70-110)
[2022-07-18 14:38] LABS: Basophils # 0.1 10^3/uL (0.0-0.1); Basophils % 0.4 %; Eosinophils % 0.1 %; Hematocrit 39.9 % (42.0-52.0); Lymphocytes # 2.7 10^3/uL (0.8-4.8); Lymphocytes % 19.1 %; Mean Corpuscular HGB Conc 30.1 g/dL (30.0-36.0); Mean Corpuscular Hemoglobin 31.1 pg (28.0-34.0); Mean Corpuscular Volume 103.4 fl (80-94); Mean Platelet Volume 10.5 fL (7.4-10.4); Monocytes % 6.8 %; Neutrophils # 10.24 10^3/uL (1.8-7.7); Neutrophils % 73.2 %; Nucleated Red Blood Cells % 0 %; Platelet Count 149 10^3/cmm (130-400); Red Blood Count 3.86 10^6/uL (4.1-5.3)
--- NOTE | 2022-07-18 14:42 | CT_ITS ---
WS: [id number] CT CHEST, ABDOMEN, AND PELVIS TECHNIQUE: Noncontrast CT of the chest, abdomen, and pelvis with coronal and sagittal reformatted pete ges. CLINICAL INFORMATION: ams, cp, abd pain, SIRS COMPARISON: CT December 07, 2021 DLP: 929.[address] scans at [facility] use at least one of these dose optimization techniques: automated e xposure control; mA and/or kV adjustment per patient size (includes targeted exams where dose is matc hed to clinical indication); or iterative reconstruction. CT CHEST: Small bilateral pleural effusions. Patchy infiltrates in the lung bases. Recommend correlation for pn eumonia. Mild chronic emphysematous changes. Cardiomegaly. Interstitial edema in the lung bases. Aort ic calcification. CABG. Coronary calcification. No mediastinal or hilar lymphadenopathy. No axillary lymphadenopathy. Normal GE junction. Hypertrophic changes thoracic spine. CT ABDOMEN AND PELVIS: Cirrhotic liver. Splenomegaly. Normal GE junction. Fatty atrophy of the pancreas. Distended hydropic gallbladder with wall thickening. Surrounding inflammatory changes and induration. Increased attenuat ion of the intraluminal contents nonspecific but suspicious for gallbladder hemorrhage, infection, or possibly intraluminal mass. This can be further evaluated with ultrasound. Recommend correlation for cholecystitis.Thickening of the adjacent abutting RIGHT colon hepatic flexure likely reactive. Patie nt at risk for gallbladder colonic fistula if persistent inflammation. Adrenal glands are normal. Atrophic kidneys. Small renal cysts. No hydronephrosis in either kidney. I mages in the pelvis are degraded due to RIGHT VIET. Diffuse bladder wall thickening suspicious for cys titis. Recommend correlation for UTI. Sigmoid diverticulosis. No evidence of acute diverticulitis. No rmal caliber abdominal aorta. CT/[place] [id number] IMPRESSION: 1. Small bilateral pleural effusions with patchy infiltrates in the lung bases with compressive atelectasis.Correlation for pneumonia. 2. Cirrhotic liver with splenomegaly . 3. Distended hydropic gallbladder with wall thickening and surrounding indurat ion. Increased attenuation in the gallbladder lumen suspicious for gallbladder hemorrhage, infection, or gallbladder mass. Recommend ultrasound in further sofia luation. Correlation for cholecystitis. 4. Gallbladder abuts the splenic flexure colon with associated colonic wall th ickening and induration likely reactive. 5. No hydronephrosis in either kidney. Atrophic kidneys bilaterally. 6. Diffuse bladder wall thickening suspicious for cystitis. 7. PEG tube in place. Notified Girma Rm MD at 07/18/2022 4:02 PM.
[2022-07-18] MEDS: piperacillin-tazobactam 4.5 GM in sodium chloride 0.9% (plus) 50 ML IV (14:56)
[2022-07-18 14:57] LABS: Lactic Sepsis W/Reflex 1.9 mmol/L (0.5-2.2)
[2022-07-18 14:58] LABS: Troponin(5th) Baseline 32 ng/L (0-15)
[2022-07-18 15:01] LABS: D Dimer 3.72 ug/mIFEU (0-0.59)
[2022-07-18 15:10] LABS: Add Urine Microscopic? YES; Bilirubin Urine Neg (Negative); Blood Urine 2+ (Negative); Glucose Urine UA Norm (Normal); Ketones Urine Negative (Negative); Leukocyte Esterase Urine Negative (Negative); Nitrate Urine Negative (Negative); Protein Urine 1+ (Negative); Sulfosalicylic Acid Urine Negative (Negative); Urine Appearance Clear (CLEAR); Urine Color Yellow (Yellow); Urobilinogen Urine 1 mg/dL (Negative); pH Urine 6 (5-7)
[2022-07-18 15:27] LABS: Alanine Aminotransferase 13 U/L (0-41); Albumin Level 2.6 g/dL (3.5-5.2); Alkaline Phosphatase 176 U/L (40-130); Anion Gap 16.9 (5-19); Aspartate Amino Transferase 32 U/L (0-40); Blood Urea Nitrogen 34 mg/dL (8-23); Calcium 9.3 mg/dL (8.5-10.5); Carbon Dioxide 24 mmol/L (22-29); Chloride 99 mmol/L (98-107); Globulin 4.6 g/dL (1.3-4.6); Glucose 135 mg/dL (65-115); Lipase 139 U/L (13-60); NT Pro B Type Natriuretic Pept 8547 pg/mL (0-450); Osmolality Calculated 290 mOsm/kg (285-295); Potassium 4.9 mmol/L (3.5-5.1); Sodium 135 mmol/L (136-145); Thyroid Stimulating Hormone 3.81 uIU/mL (0.27-4.20); Total Bilirubin 0.4 mg/dL (0.15-1.2); Total Protein 7.2 g/dL (6.6-8.7)
[2022-07-18 15:33] LABS: Bacteria Urine TRACE /hpf; Hyaline Casts Urine 0-4 /lpf; RBC Urine 0-4 /hpf (0-2); Squamous Epithelial Cell Urine 0-4 /hpf (0-5); WBC Urine 0-4 /hpf (0-5)
[2022-07-18] MEDS: sodium chloride 0.9% 1,000 ML 999 ML IV ×2 (15:43→18:07)
[2022-07-18 15:47] VITALS: BP 122/68; PULSE 97; RESP 24; O2SAT 95
--- NOTE | 2022-07-18 15:57 | USR_ITS ---
PROCEDURE INFORMATION: Exam: US Abdomen, Limited; Right Upper Quadrant Exam date and time: 07/18/2022 4:21 PM Age: 86 years old Clinical indication: Abnormal findings; Abnormal radiologic finding of the abdomen; Radiologic exam and body structure: CT; Additional info: Abnormal CT, ? cholecystitis TECHNIQUE: Imaging protocol: Real time ultrasound of the abdomen with image documentation. Limited exam focused on the right upper quadrant. COMPARISON: US abdomen limited [id number] 04/08/2022 7:41 AM FINDINGS: Liver: Normal. No masses. Gallbladder: Gallbladder tumefactive sludge, negative for cholecystitis. Biliary ducts: Normal. No stones. No dilation. Pancreas: Visualized pancreas is unremarkable. Right kidney: Normal. No mass. No hydronephrosis. US/US gall bladder [id number] IMPRESSION: Gallbladder tumefactive sludge, negative for cholecystitis.
[2022-07-18 16:00] VITALS: PULSE 87; O2SAT 96
--- NOTE | 2022-07-18 16:06 | ECG_ITS ---
[facility] Test Date: 2022-07-18 Pat Name: Mitchel Fishman Department: Room: Gender: Male Nursing Care Attendant: : [id number] Requested By: Girma Rm Order Number: [id number] Tracy MD: Jessica Lomax M.D. Measurements Intervals Adrian Rate: 88 P: 0 CT: 0 QRS: -6 QRSD: 91 T: 57 QT: 378 QTc: 459 Interpretive Statements ATRIAL FIBRILLATION NONSPECIFIC ST & T-WAVE ABNORMALITY ABNORMAL RHYTHM ECG Compared to ECG 07/18/2022 14:12:51 Ventricular-paced complex(es) or rhythm no longer present T-wave abnormality still present Electronically Signed On 07-18-2022 23:48:47 CONSUMER EDUCATION SPECIALIST by Jessica Lomax M.D. [id number]
[2022-07-18 16:55] LABS: Troponin 5 2HR 30.35 ng/L (0-15)
[2022-07-18 17:00] VITALS: BP 130/65; PULSE 88; O2SAT 96
[2022-07-18 17:03] LABS: Troponin 5 2HR Delta -1.65 ABS# (0-10)
[2022-07-18 18:00] VITALS: BP 126/67; PULSE 90; RESP 18; O2SAT 95
[2022-07-18] MEDS: sodium chloride 0.9% 500 ML 999 ML IV (18:08)
[2022-07-18 18:45] LABS: Adenovirus Not Detected (NOT DETECT); Chlamydia Pneumoniae Not Detected (NOT DETECT); Coronavirus 229E,HKU1,NL63,OC4 Not Detected (NOT DETECT); Human Metapneumovirus Not Detected (NOT DETECT); Human Rhinovirus/Enterovirus Not Detected (NOT DETECT); Influenza A Not Detected (NOT DETECT); Influenza A H1 Not Detected (NOT DETECT); Influenza A H1-2009 Not Detected (NOT DETECT); Influenza A H3 Not Detected (NOT DETECT); Influenza B Not Detected (NOT DETECT); Mycoplasma Pneumoniae Not Detected (NOT DETECT); Parainfluenza Virus Type 1 Not Detected (NOT DETECT); Parainfluenza Virus Type 2 Not Detected (NOT DETECT); Parainfluenza Virus Type 3 Not Detected (NOT DETECT); Parainfluenza Virus Type 4 Not Detected (NOT DETECT); Respiratory Syncytial Virus A Not Detected (NOT DETECT); Respiratory Syncytial Virus B Not Detected (NOT DETECT); SARS-COV-2 Not Detected (NOT DETECT)
--- NOTE | 2022-07-18 18:46 | PM.HP ---
Providers/Chief Complaint Admitting Physician: Howie Barajas MD Primary Care Provider: Marisela Pacheco MD Chief Complaint: PAINFUL URINATION History of Present Illness Mitchel Fishman is a 86 year old male who is a poor historian, history of dementia, history of dysphagia, cannot provide any history, present to the hospital for chief complaint of epigastric and left subcostal pain. In the ER he has been diagnosed also related to pneumonia. D-dimer is 3 he is on Eliquis for A. fib. COVID-negative. Cirrhotic liver with splenomegaly evident on CT scan, concern for cystitis as well PEG tube is in place. Been given septic bolus and antibiotics. With patient was moaning in sleep, she was concerned about different urine color, foul-smelling, he wears adult diapers, he takes certain pills through mouth otherwise most of the time. Osmolite 1.2 can 3 times a day with water flushes, was concerned because he was not acting his usual self that prompted the visit to the ER Review of Systems General: Reports: ROS unobtainable due to medical condition Medications/Allergies Home Medications Medication Instructions Recorded Confirmed Last Taken Type allopurinol 100 mg tablet 200 mg PO QAM 07/31/19 07/18/22 07/18/22 08:30 History isosorbide mononitrate 30 mg 30 mg PO QAM 07/31/19 07/18/22 07/18/22 History tablet,extended release 24 hr donepezil 10 mg tablet 10 mg PO BEDTIME 05/08/20 07/18/22 07/17/22 History metoprolol succinate 25 mg 12.5 mg PO QAM 12/12/20 07/18/22 07/18/22 History tablet,extended release 24 hr rosuvastatin 40 mg tablet 20 mg PO BEDTIME 10/26/21 07/18/22 07/17/22 History valproic acid (as sodium salt) 250 250 mg PO QAM 10/26/21 07/18/22 07/18/22 History mg/5 mL (5 mL) oral solution loperamide 1 mg/7.5 mL oral liquid 2 mg (15 mL) PO QID PRN Diarrhea 12/09/21 07/18/22 Unknown Rx #300 mL citalopram 40 mg tablet (Celexa) 20 mg PO QAM 05/13/22 07/18/22 07/18/22 08:30 History levothyroxine 25 mcg tablet 25 mcg PO QAM 05/13/22 07/18/22 07/18/22 History apixaban 5 mg tablet (Eliquis) 5 mg PO BID 07/18/22 07/18/22 07/18/22 08:30 History furosemide 20 mg tablet 10 mg PO DAILY PRN Edema 07/18/22 07/18/22 Unknown History insulin glargine 100 unit/mL 30 unit SUBCUT QAM 07/18/22 07/18/22 07/18/22 History subcutaneous solution (Lantus U-100 Insulin) potassium chloride 20 mEq 10 meq PO DAILY PRN when taking 07/18/22 07/18/22 Unknown History tablet,extended release lasix Allergies Allergy/AdvReac Type Severity Reaction Status Date / Time Iodinated Contrast Media Allergy Mild Unknown Verified 07/18/22 15:43 glipizide Allergy Unknown Verified 07/18/22 15:43 PFSH Acute PFSH: Medical History Afib Aphasia Chronic kidney disease Coronary artery disease Degenerative disc disease Dementia vascular Diabetes Dysarthria Glaucoma Gout History of adverse drug reaction reports history of significant reaction to either anesthesia or other perioperative medication that resulted in massive tongue swelling that limited airway and contributed to current dysarthria and PEG dependence History of angiography 09/2018 lower extremities, abdominal aorta - PAD predominantly below the knees, not able to do invasive intervention History of cerebellar stroke History of stress test 12/2020 Hyperlipidemia Hypertension Leaking PEG tube Pacemaker PAD (peripheral artery disease) Parkinson disease Thrombocytopenia Warfarin anticoagulation Surgical History History of CEA (carotid endarterectomy) History of coronary artery bypass graft History of coronary artery stent placement History of esophagogastroduodenoscopy (EGD) (~2018) S/P percutaneous endoscopic gastrostomy (PEG) tube placement history of leak, dysfunction, bleeding around site; replaced 12/[address] Chaves Family History Mother Stroke Father Heart disease Denies family history of Anesthesia complication Bleeding disorder Social History Smoking and tobacco status: former smoker Alcohol intake: former Former alcohol use details: Not in more than 30 years Household members: spouse Vitals/I&O/Wt Last Vital Signs Temp 97.4 F L 07/18/22 13:51 Pulse 90 07/18/22 18:00 Resp 18 07/18/22 18:00 BP 126/67 07/18/22 18:00 Pulse Ox 95 07/18/22 18:00 O2 Del Method 07/18/22 18:00 07/18/22 07/18/22 07/18/22 06:59 14:59 22:59 Intake Total 1550 / 1550 Balance 1550 / 1550 Physical Exam Narrative: Elderly male lying supine without any acute discomfort Muscle mass loss Protein calorie malnourishment PEG tube is in place Abdomen is firm slightly tender right lower quadrant Currently doing well on room air S1, S2 bradycardia with Hemodynamically stable Lower extremity no edema Non focal deficit Data 07/18/22 14:17 07/18/22 14:17 Micro: Microbiology 07/18/22 14:30 Blood Culture - Preliminary Blood SPECIMEN COLLECTED 07/18/22 14:20 Blood Culture - Preliminary Blood SPECIMEN COLLECTED A&P Assessment and plan (1) Pneumonia: (2) Sepsis: (3) Afib: (4) Diabetes: (5) Pacemaker: (6) Feeding difficulty: Plan Sepsis related to pneumonia I will use cefepime and Zosyn for now Check MRSA PCR Check urine antigen Septic bolus received in the ER Continue IV fluids for tonight A. fib without RVR Continue Eliquis Patient is not requiring oxygen At baseline requires a lot of assistance from his Is DNR/DNI PEG tube feeds Opiates for pain management Ultrasound of gallbladder did not show any significant signs of infection gallbladder sludge noted Attestations Medical Necessity Statement*: Anticipating more than 2 midnights for medical management. For management of sepsis management of sepsis Time Spent in Patient Care: 35 Coding Level of Care Code Acute Code for [facility] Diagnoses Pneumonia J18.9 Sepsis A41.9 Afib I48.91 Diabetes E11.9 Pacemaker Z95.0 Feeding difficulty R63.3
[2022-07-18 19:43] LABS: Procalcitonin 0.18 ng/mL (0-0.5)
[2022-07-18 20:11] LABS: Ammonia 37 umol/L (16-60)
[2022-07-18 20:12] LABS: Troponin 5 6HR 28.19 ng/L (0-15)
[2022-07-18 20:17] VITALS: BP 122/81; PULSE 85; RESP 18; TEMP 36.5; O2SAT 92
[2022-07-18 20:20] LABS: Troponin 5 6HR Delta -3.81 ng/L (0-12)
[2022-07-18] MEDS: sodium chloride 0.9% 1,000 ML 75 ML IV (20:38)
[2022-07-18] MEDS: cefepime 1,000 MG in sodium chloride 0.9% (plus) 50 ML 100 MG IV (20:53)
[2022-07-18] MEDS: lactulose oral liq 20 gm/30 mL UDC PEG-TUBE (20:54)
[2022-07-18] MEDS: donepezil 5 MG Tablet 10 MG PO (20:54)
[2022-07-18] MEDS: piperacillin-tazobactam 3.375 GM in sodium chloride 0.9% (plus) 50 ML IV (21:53)
[2022-07-18 22:02] LABS: Glucose Point of Care 97 mg/dL (70-110)
[2022-07-19] VITALS (12 sets, daily range): BP systolic 136–166; BP diastolic 71–90; PULSE 77–109; RESP 17–20; TEMP 36.3–37.3; O2SAT 92–98
[2022-07-19] MEDS: piperacillin-tazobactam 3.375 GM in sodium chloride 0.9% (plus) 50 ML IV ×3 (04:01→21:45)
[2022-07-19 05:04] LABS: Basophils % 0.4 %; Eosinophils % 0.2 %; Hematocrit 37.5 % (42.0-52.0); Hemoglobin 11.3 g/dL (11.7-16.6); Lymphocytes # 1.8 10^3/uL (0.8-4.8); Lymphocytes % 16.4 %; Mean Corpuscular HGB Conc 30.1 g/dL (30.0-36.0); Mean Corpuscular Hemoglobin 31.2 pg (28.0-34.0); Mean Corpuscular Volume 103.6 fl (80-94); Mean Platelet Volume 9.9 fL (7.4-10.4); Monocytes # 0.8 10^3/uL (0.2-0.9); Neutrophils # 8.44 10^3/uL (1.8-7.7); Neutrophils % 75.6 %; Nucleated Red Blood Cells % 0 %; Platelet Count 134 10^3/cmm (130-400); Red Blood Count 3.62 10^6/uL (4.1-5.3); Red Cell Distribution Width 15.1 % (12.1-15.1); White Blood Count 11.2 10^3/uL (4.0-10.0)
[2022-07-19 05:44] LABS: Anion Gap 12.1 (5-19); Blood Urea Nitrogen 31 mg/dL (8-23); C Reactive Protein 126.1 mg/L (0.0-4.9); Calcium 8.7 mg/dL (8.5-10.5); Carbon Dioxide 22 mmol/L (22-29); Chloride 108 mmol/L (98-107); Glucose 155 mg/dL (65-115); Magnesium 1.8 mg/dL (1.7-2.3); Osmolality Calculated 296 mOsm/kg (285-295); Phosphorus 2.7 mg/dL (2.5-4.5); Potassium 4.1 mmol/L (3.5-5.1); Sodium 138 mmol/L (136-145)
[2022-07-19] MEDS: allopurinol 100 mg Tablet 200 MG PO (05:51)
[2022-07-19] MEDS: levothyroxine 25 mcg Tablet PO (05:51)
[2022-07-19] MEDS: valproic acid 250 mg/5 mL UDC PO (05:52)
[2022-07-19] MEDS: insulin glargine 100 units/1 mL 30 UNIT SUBCUT (05:57)
[2022-07-19 06:26] LABS: Glucose Point of Care 151 mg/dL (70-110)
--- NOTE | 2022-07-19 06:33 | P.PN_ITS ---
Subjective Subjective: No fever overnight Urine output has not been measured accurately D-dimer noted patient is not requiring oxygen, tachycardia is appropriate to infection Patient answer simple question As per the nursing staff, wet cough noticed I have asked her to discontinue IV fluids and decrease tube feeding rate for now Vitals/I&O/Wt Last Vital Signs Temp 97.3 F L 07/19/22 03:40 Pulse 103 H 07/19/22 03:40 Resp 20 H 07/19/22 03:40 BP 143/90 07/19/22 03:40 Pulse Ox 95 07/19/22 03:40 O2 Del Method 07/19/22 00:16 07/18/22 07/18/22 07/19/22 14:59 22:59 06:59 Intake Total 3100 / 3100 723 / 3823 Balance 3100 / 3100 723 / 3823 Weight last 48 hrs Weight 85.502 kg Physical Exam Narrative: Patient lying supine Oriented to self Hemodynamically stable Currently on room air Mild rhonchi Abdomen soft Lower extremity no edema PEG tube in place No active signs of drainage Patient not able to comprehend which is his baseline Patient tries to speak/mumble Data 07/19/22 04:48 07/19/22 04:48 Micro: Microbiology 07/18/22 14:30 Blood Culture - Preliminary Blood SPECIMEN COLLECTED 07/18/22 14:20 Blood Culture - Preliminary Blood SPECIMEN COLLECTED A&P Assessment and plan (1) Pneumonia: (2) Sepsis: (3) Afib: (4) Diabetes: (5) Parkinson disease: (6) Dementia: (7) Pacemaker: Plan Sepsis related to pneumonia and UTI Currently on antibiotics Afebrile No worsening leukocytosis Continue IV fluid hydration along antibiotics Follow-up with urine and blood cultures Patient at baseline is not very conversive, has history of dementia, Parkinson's A. fib with RVR continue AV mojgan blocking agent, he is also on Eliquis High D-dimer noted which could be due to underlying sepsis He is now requiring oxygen I would not request CTA chest for now DNR/DNI Osmolite 1.2 cans/day PEG tube feed with water flushes updated Attestations Medical Necessity Statement*: Continue medical management Time Spent in Patient Care: 30 Coding Level of Care Code Acute Code for [facility] Diagnoses Pneumonia J18.9 Sepsis A41.9 Afib I48.91 Diabetes E11.9 Parkinson disease G20 Dementia F03.90 Pacemaker Z95.0
[2022-07-19] MEDS: insulin lispro 100 unit/1 mL SUBCUT ×2 (08:15→17:55)
[2022-07-19] MEDS: apixaban 5 mg Tablet PO ×2 (08:17→17:55)
--- NOTE | 2022-07-19 09:59 | PC.CHAP ---
Pastoral Care Encounter/Spiritual Assessment Type of Contact [] Declined janitorial supervisor visit [] Patient/Family/Request visit [] Outpatient visit [] Follow-up visit [] Physician referral [] Code/Alert [x] Routine visit [] Staff referral [] Actively dying [] Patient sleeping [] Family support [] [] Out of room [] Palliative care [] [] Receiving care in room [] Pre-surgical visit [] Trauma [] Long length of stay [] ICU visit [] Other: Relational/Emotional Strength [] Patient feels connected with others/family/visitors/staff [] Distress [] Loneliness/isolation [] Abandonment Spirituality of Patient [x] Person of Renetta [x] Attends Alevism of their Renetta [x] Believes in Prayer [] Reads Bible or Yazidism materials [] There are Spiritual issues to be addressed Gettering Operator Interventions [x] Prayer [x] Active listening [x] Non-anxious presence [x] Spiritual/emotional support [] Crisis/trauma care [] Spiritual counseling [] Bereavement support [] Provided bereavement packet [] Provided Bible/devotional materials [] Provided toy/stuffed animal, coloring book to patient or family member [] Provided Communion [] Anointing/Chauvin [] Salvation [x] Completed spiritual assessment [] Other: Impact on Illness or Injury [] Angry [] Fearful [] Anxious [] Often cries [] Exhaustion [] Unable to work [] Unable to attend yarsani [] Unable to walk/stand [] Unable to read [] Unable to drive [] Unable to eat/drink [] Unable to sleep [] Unable to be with family [] Patient intubated [] Other: Summary Time spent with patient 10 min
[2022-07-19] MEDS: cefepime 1,000 MG in sodium chloride 0.9% (plus) 50 ML 100 MG IV ×2 (10:44→20:48)
[2022-07-19] MEDS: FUROsemide 10 mg/mL SDV 4mL 40 MG IVP (10:44)
[2022-07-19 10:51] LABS: Glucose Point of Care 98 mg/dL (70-110)
[2022-07-19] MEDS: acetylcysteine 200 mg/mL SDV 4 mL 100 MG INHALATION ×3 (11:49→20:13)
[2022-07-19] MEDS: albuterol 2.5 mg/3 mL Neb INHALATION ×3 (11:49→20:13)
[2022-07-19 17:02] LABS: Glucose Point of Care 162 mg/dL (70-110)
[2022-07-19] MEDS: donepezil 5 MG Tablet 10 MG PO (22:11)
[2022-07-19 22:56] LABS: Glucose Point of Care 68 mg/dL (70-110)
[2022-07-20] VITALS (10 sets, daily range): BP systolic 92–145; BP diastolic 53–71; PULSE 80–129; RESP 15–20; TEMP 36.6–37.3; O2SAT 86–96
[2022-07-20] MEDS: piperacillin-tazobactam 3.375 GM in sodium chloride 0.9% (plus) 50 ML IV (03:20)
[2022-07-20 03:26] LABS: Glucose Point of Care 103 mg/dL (70-110)
[2022-07-20 03:36] LABS: Basophils # 0.1 10^3/uL (0.0-0.1); Basophils % 0.6 %; Eosinophils % 0.2 %; Hemoglobin 12.7 g/dL (11.7-16.6); Lymphocytes # 2.3 10^3/uL (0.8-4.8); Mean Corpuscular HGB Conc 30.2 g/dL (30.0-36.0); Mean Corpuscular Hemoglobin 31.6 pg (28.0-34.0); Mean Corpuscular Volume 104.5 fl (80-94); Monocytes # 0.8 10^3/uL (0.2-0.9); Monocytes % 6.1 %; Neutrophils # 9.47 10^3/uL (1.8-7.7); Neutrophils % 74.5 %; Nucleated Red Blood Cells % 0 %; Platelet Count 158 10^3/cmm (130-400); Red Blood Count 4.02 10^6/uL (4.1-5.3); Red Cell Distribution Width 15.1 % (12.1-15.1); White Blood Count 12.7 10^3/uL (4.0-10.0)
[2022-07-20] MEDS: morphine IR 15 mg Tablet PO (03:56)
[2022-07-20 03:57] LABS: Anion Gap 13.9 (5-19); Blood Urea Nitrogen 28 mg/dL (8-23); Calcium 8.9 mg/dL (8.5-10.5); Carbon Dioxide 25 mmol/L (22-29); Chloride 99 mmol/L (98-107); Glucose 144 mg/dL (65-115); Osmolality Calculated 286 mOsm/kg (285-295); Potassium 3.9 mmol/L (3.5-5.1); Sodium 134 mmol/L (136-145)
[2022-07-20] MEDS: allopurinol 100 mg Tablet 200 MG PO (06:40)
[2022-07-20] MEDS: levothyroxine 25 mcg Tablet PO (06:40)
[2022-07-20] MEDS: metoprolol succinate ER (24 HR) 25 mg Tablet 12.5 MG PO (06:40)
[2022-07-20 06:41] LABS: Glucose Point of Care 87 mg/dL (70-110)
[2022-07-20] MEDS: valproic acid 250 mg/5 mL UDC PO (06:41)
[2022-07-20] MEDS: isosorbide mononitrate ER 30 mg Tablet PO (06:41)
[2022-07-20] MEDS: lactulose oral liq 20 gm/30 mL UDC PEG-TUBE (06:41)
[2022-07-20] MEDS: apixaban 5 mg Tablet PO ×2 (08:19→18:19)
[2022-07-20] MEDS: acetylcysteine 200 mg/mL SDV 4 mL 100 MG INHALATION ×2 (08:20→15:15)
[2022-07-20] MEDS: albuterol 2.5 mg/3 mL Neb INHALATION ×2 (08:21→15:15)
--- NOTE | 2022-07-20 10:35 | P.PN_ITS ---
Subjective Subjective: Patient WILL BE ABLE TO GO BACK TO [facility] PER THE SHE HAS ALREADY SPOKE WITH THE HOSPICE COMpassus No overnight events Afebrile Switch to p.o. antibiotics Vitals/I&O/Wt Last Vital Signs Temp 98 F 07/20/22 08:00 Pulse 129 H 07/20/22 08:29 Resp 16 07/20/22 08:00 BP 92/56 07/20/22 08:00 Pulse Ox 96 07/20/22 08:00 O2 Del Method 07/20/22 08:00 07/19/22 07/20/22 07/20/22 22:59 06:59 14:59 Intake Total 100 / 1885 790 / 2675 50 / 50 Output Total Balance 99 / 1884 790 / 2674 50 / 50 Weight last 48 hrs Weight 85.502 kg Physical Exam Narrative: is at the bedside Patient is euvolemic Currently on room air PEG tube in place no active drainage Patient seems comfortable, able to answer simple questions Abdomen soft S1, S2 variable Data 07/20/22 03:28 07/20/22 03:28 Micro: Microbiology 07/20/22 02:00 Bacterial Antigens - Final Urine,Clean Catch 07/20/22 02:00 Legionella Urinary Antigen - Final Urine,Clean Catch 07/18/22 14:30 Blood Culture - Preliminary Blood NEGATIVE TO DATE 07/18/22 14:20 Blood Culture - Preliminary Blood NEGATIVE TO DATE 07/18/22 19:35 MRSA Culture - Final Nose A&P Assessment and plan (1) Pneumonia: (2) Sepsis: (3) Afib: (4) Diabetes: (5) Parkinson disease: Plan Sepsis: Resolved Pneumonia: Switch IV antibiotics to p.o. A. fib without RVR Continue anticoagulation As per the he has already spoken with hospice at [facility] plan to discharge over the weekend versus Friday We will give 1 extra dose of Lasix today Patient not requiring oxygen Attestations Medical Necessity Statement*: Patient is medically cleared to be discharged Time Spent in Patient Care: 15MIN Coding Level of Care Code Acute Code for [facility] Fwd Diagnoses Pneumonia J18.9 Sepsis A41.9 Afib I48.91 Diabetes E11.9 Parkinson disease G20
[2022-07-20 11:42] LABS: Glucose Point of Care 125 mg/dL (70-110)
[2022-07-20] MEDS: FUROsemide 20 mg Tablet PEG-TUBE (11:55)
[2022-07-20 17:14] LABS: Glucose Point of Care 165 mg/dL (70-110)
[2022-07-20] MEDS: insulin lispro 100 unit/1 mL SUBCUT (18:20)
[2022-07-20] MEDS: donepezil 5 MG Tablet 10 MG PO (21:37)
[2022-07-20] MEDS: ALPRAZolam 0.5 mg Tablet 0.25 MG PO (21:53)
[2022-07-20 21:59] LABS: Glucose Point of Care 132 mg/dL (70-110)
[2022-07-21] VITALS (7 sets, daily range): BP systolic 126–179; BP diastolic 63–80; PULSE 69–106; RESP 15–18; TEMP 36.6–37.4; O2SAT 91–98
[2022-07-21] MEDS: allopurinol 100 mg Tablet 200 MG PO (05:16)
[2022-07-21] MEDS: metoprolol succinate ER (24 HR) 25 mg Tablet 12.5 MG PO (05:16)
[2022-07-21] MEDS: levoFLOXacin 750 mg Tablet PO (05:16)
[2022-07-21] MEDS: levothyroxine 25 mcg Tablet PO (05:16)
[2022-07-21] MEDS: valproic acid 250 mg/5 mL UDC PO (05:17)
[2022-07-21] MEDS: isosorbide mononitrate ER 30 mg Tablet PO (05:17)
[2022-07-21 07:07] LABS: Glucose Point of Care 119 mg/dL (70-110)
[2022-07-21] MEDS: insulin glargine 100 units/1 mL 30 UNIT SUBCUT (07:09)
[2022-07-21 07:28] LABS: Glucose Point of Care 109 mg/dL (70-110)
[2022-07-21] MEDS: apixaban 5 mg Tablet PO ×2 (09:24→18:04)
[2022-07-21] MEDS: acetaminophen 500 mg Tablet PO ×2 (09:24→23:49)
--- NOTE | 2022-07-21 10:15 | PM.PN ---
Subjective Subjective: Patient was asking for something moist for his dry mouth Vitals/I&O/Wt Last Vital Signs Temp 98.2 F 07/21/22 08:00 Pulse 84 07/21/22 08:00 Resp 18 07/21/22 08:00 BP 154/67 07/21/22 08:00 Pulse Ox 96 07/21/22 08:00 O2 Del Method 07/21/22 08:00 07/20/22 07/21/22 07/21/22 22:59 06:59 14:59 Intake Total 930 / 1520 Balance 930 / 1520 Physical Exam Narrative: Patient is laying supine Patient is using a the Yunker to suction his mouth Asking for something moist, nonfocal neuro exam Aphasia PEG tube in place No signs of edema of legs Clinical signs of dehydration Data 07/20/22 03:28 07/20/22 03:28 Micro: Microbiology 07/20/22 02:00 Bacterial Antigens - Final Urine,Clean Catch A&P Assessment and plan (1) Pneumonia: (2) Sepsis: (3) Afib: (4) Diabetes: (5) Dementia: (6) Parkinson disease: Plan Patient is medically cleared to be released back to intermediate on Friday he will go to [facility] with hospice Sepsis resolved No need of continuation of antibiotics at the time of discharge Attestations Medical Necessity Statement*: Discharge tomorrow to intermediate Time Spent in Patient Care: 5 min Coding Level of Care Code Acute Code for g Fwd Diagnoses Pneumonia J18.9 Sepsis A41.9 Afib I48.91 Diabetes E11.9 Dementia F03.90 Parkinson disease G20
[2022-07-21 11:58] LABS: Glucose Point of Care 88 mg/dL (70-110)
[2022-07-21 17:46] LABS: Glucose Point of Care 95 mg/dL (70-110)
[2022-07-21 20:33] LABS: Glucose Point of Care 119 mg/dL (70-110)
[2022-07-21] MEDS: donepezil 5 MG Tablet 10 MG PO (21:26)
[2022-07-22 04:14] VITALS: BP 110/68; PULSE 94; RESP 18; TEMP 36.7; O2SAT 90
[2022-07-22] MEDS: levothyroxine 25 mcg Tablet PO (06:06)
[2022-07-22] MEDS: isosorbide mononitrate ER 30 mg Tablet PO (06:06)
[2022-07-22] MEDS: metoprolol succinate ER (24 HR) 25 mg Tablet 12.5 MG PO (06:06)
[2022-07-22] MEDS: levoFLOXacin 750 mg Tablet PO (06:06)
[2022-07-22] MEDS: valproic acid 250 mg/5 mL UDC PO (06:06)
[2022-07-22] MEDS: insulin glargine 100 units/1 mL 30 UNIT SUBCUT (06:07)
[2022-07-22] MEDS: allopurinol 100 mg Tablet 200 MG PO (06:07)
[2022-07-22 06:48] LABS: Glucose Point of Care 137 mg/dL (70-110)
[2022-07-22 07:47] VITALS: PULSE 68; RESP 16; O2SAT 94
[2022-07-22 08:00] VITALS: BP 138/49; PULSE 96; RESP 18; TEMP 36.7; O2SAT 94
[2022-07-22] MEDS: apixaban 5 mg Tablet PO (08:32)
--- NOTE | 2022-07-22 08:33 | PM.DCS ---
Discharge Providers Date of Admission: 07/18/22 18:39 Date of Discharge: July 22, 2022 Attending Provider at Admission: Howie Barajas MD Attending Provider at Discharge: Anastasiia Ramos MD Primary Care Provider: Marisela Pacheco MD Diagnoses at Discharge Discharge Diagnosis (1) Pneumonia: Status: Acute (2) Sepsis: Status: Acute (3) Afib: Status: Acute (4) Diabetes: Status: Acute (5) Dementia: Status: Acute (6) Parkinson disease: Status: Acute Reason for Visit Reason for Visit: PAINFUL URINATION Hospital Course Hospital Course 86-year-old male who has aphasia, dysphagia, gets feeds through PEG tube Osmolite 1.22 cans 3 times a day with water flush, presented with pneumonia and UTI related sepsis, patient was kept on antibiotics for hospitalization, remained afebrile, no significant leukocytosis, cultures remain negative to date, as per the they have already spoken with [facility] hospice, would not recommend continuation of Eliquis if he is going on hospice, finished enough days of antibiotics, no need to continue antibiotics at the time of discharge. Patient has Parkinson's, dementia, bedbound, Physical Exam Narrative: Hemodynamically stable Bed no Responds to simple questions Nonverbal PEG tube in place Abdomen soft No new focal deficit Discharge Data Studies Completed and Pending Completed Studies During Hospitalization Category Date Time Status CT chest abdomen pelvis [[place] [id number] Cat Scan 07/18/22 14:42 Completed ] Stat XR chest 1V portable [id number] Stat Exams 07/18/22 14:05 Completed US gall bladder [id number] Stat Ultrasound 07/18/22 15:57 Completed Pending at discharge Category Date Time Status Blood Culture Stat Lab 07/18/22 14:30 Results SARS Covid-2 Antigen Routine Lab 07/22/22 00:01 Uncollected Radiology Impressions Chest X-Ray 07/18/22 14:05 IMPRESSION: 1. Mild interstitial infiltrate in the left lower lobe that could represent developing pneumonia. Chest/Abdomen/Pelvis CT 07/18/22 14:42 IMPRESSION: 1. Small bilateral pleural effusions with patchy infiltrates in the lung bases with compressive atelectasis.Correlation for pneumonia. 2. Cirrhotic liver with splenomegaly . 3. Distended hydropic gallbladder with wall thickening and surrounding induration. Increased attenuation in the gallbladder lumen suspicious for gallbladder hemorrhage, infection, or gallbladder mass. Recommend ultrasound in further evaluation. Correlation for cholecystitis. 4. Gallbladder abuts the splenic flexure colon with associated colonic wall thickening and induration likely reactive. 5. No hydronephrosis in either kidney. Atrophic kidneys bilaterally. 6. Diffuse bladder wall thickening suspicious for cystitis. 7. PEG tube in place. Notified Girma Rm MD at 07/18/2022 4:02 PM. Gallbladder Ultrasound 07/18/22 15:57 IMPRESSION: Gallbladder tumefactive sludge, negative for cholecystitis. Laboratory Results WBC 12.7 10^3/uL (4.0-10.0) H 07/20/22 03:28 RBC 4.02 10^6/uL (4.1-5.3) L 07/20/22 03:28 Hgb 12.7 g/dL (11.7-16.6) 07/20/22 03:28 Hct 42.0 % (42.0-52.0) 07/20/22 03: MCV 104.5 fl (80-94) H 07/20/22 03:28 MCH 31.6 pg (28.0-34.0) 07/20/22 03:28 MCHC 30.2 g/dL (30.0-36.0) 07/20/22 03: RDW 15.1 % (12.1-15.1) 07/20/22 03:28 Plt Count 158 10^3/cmm (130-400) 07/20/22 03:28 MPV 10.0 fL (7.4-10.4) 07/20/22 03:28 Neut % (Auto) 74.5 % 07/20/22 03:28 Lymph % (Auto) 18.0 % 07/20/22 03:28 [place] % (Auto) 6.1 % 07/20/22 03:28 Eos % (Auto) 0.2 % 07/20/22 03:28 Baso % (Auto) 0.6 % 07/20/22 03:28 Neut # (Auto) 9.47 10^3/uL (1.8-7.7) H 07/20/22 03:28 Lymph # (Auto) 2.3 10^3/uL (0.8-4.8) 07/20/22 03:28 [place] # (Auto) 0.8 10^3/uL (0.2-0.9) 07/20/22 03:28 Eos # (Auto) 0.0 10^3/uL (0.0-0.8) 07/20/22 03:28 Baso # (Auto) 0.1 10^3/uL (0.0-0.1) 07/20/22 03:28 Nucleated RBC % (auto) 0 % 07/20/22 03:28 Nucleated RBCs # 0.0 /100WBC 07/20/22 03:28 D-Dimer 3.72 ug/mIFEU (0-0.59) H 07/18/22 14:17 Sodium 134 mmol/L (136-145) L 07/20/22 03:28 Potassium 3.9 mmol/L (3.5-5.1) 07/20/22 03:28 Chloride 99 mmol/L (98-107) 07/20/22 03:28 Carbon Dioxide 25 mmol/L (22-29) 07/20/22 03:28 Anion Gap 13.9 (5-19) 07/20/22 03:28 BUN 28 mg/dL (8-23) H 07/20/22 03:28 Creatinine 1.0 mg/dL (0.7-1.2) 07/20/22 03:28 GFR Calculation Not Reportable 07/20/22 03:28 Glucose 144 mg/dL (65-115) H 07/20/22 03:28 POC Glucose 137 mg/dL (70-110) H 07/22/22 06:06 Calculated Osmolality 286 mOsm/kg (285-295) 07/20/22 03:28 Lactic Acid 1.9 mmol/L (0.5-2.2) 07/18/22 14:17 Calcium 8.9 mg/dL (8.5-10.5) 07/20/22 03:28 Phosphorus 2.7 mg/dL (2.5-4.5) 07/19/22 04:48 Magnesium 1.8 mg/dL (1.7-2.3) 07/19/22 04:48 Total Bilirubin 0.4 mg/dL (0.15-1.2) 07/18/22 14:17 AST 32 U/L (0-40) 07/18/22 14:17 ALT 13 U/L (0-41) 07/18/22 14:17 Alkaline Phosphatase 176 U/L (40-130) H 07/18/22 14:17 Ammonia 37 umol/L (16-60) 07/18/22 19:40 Troponin T Baseline 32 ng/L (0-15) H 07/18/22 14:17 Troponin T 120 Minute 30.35 ng/L (0-15) H 07/18/22 16:15 Delta Troponin T -1.65 ABS# (0-10) L 07/18/22 16:15 Troponin T Hi Sens 6Hr 28.19 ng/L (0-15) H 07/18/22 19:40 Troponin T Hi Sens 6Hr Delta -3.81 ng/L (0-12) L 07/18/22 19:40 C-Reactive Protein 126.1 mg/L (0.0-4.9) H 07/19/22 04:48 NT-Pro-B Natriuret Pep 8547 pg/mL (0-450) H 07/18/22 14:17 Total Protein 7.2 g/dL (6.6-8.7) 07/18/22 14:17 Albumin 2.6 g/dL (3.5-5.2) L 07/18/22 14:17 Globulin 4.6 g/dL (1.3-4.6) 07/18/22 14:17 Lipase 139 U/L (13-60) H 07/18/22 14:17 Procalcitonin 0.18 ng/mL (0-0.5) 07/18/22 16:15 TSH 3.81 uIU/mL (0.27-4.20) 07/18/22 14:17 Urine Color Yellow (Yellow) 07/18/22 14:55 Urine Appearance Clear (CLEAR) 07/18/22 14:55 Urine pH 6 (5-7) 07/18/22 14:55 Ur Specific [place] 1.010 (1.005-1.030) 07/18/22 14:55 Urine Protein 1+ (Negative) H 07/18/22 14:55 Urine Glucose (UA) Norm (Normal) 07/18/22 14:55 Urine Ketones Negative (Negative) 07/18/22 14:55 Urine Blood 2+ (Negative) H 07/18/22 14:55 Urine Nitrate Negative (Negative) 07/18/22 14:55 Urine Bilirubin Neg (Negative) 07/18/22 14:55 Prot Sulfosalicylic Acd Negative (Negative) 07/18/22 14:55 Urine Urobilinogen 1 mg/dL (Negative) H 07/18/22 14:55 Ur Leukocyte Esterase Negative (Negative) 07/18/22 14:55 Urine RBC 0-4 /hpf (0-2) H 07/18/22 14:55 Urine WBC 0-4 /hpf (0-5) H 07/18/22 14:55 Ur Squamous Epith Cells 0-4 /hpf (0-5) H 07/18/22 14:55 Amorphous Sediment Not Reportable 07/18/22 14:55 Urine Bacteria Trace /hpf (NONE) 07/18/22 14:55 Hyaline Casts 0-4 /lpf H 07/18/22 14:55 Coronavirus 229E (PCR) Not detected (NOT DETECT) 07/18/22 16:57 SARS-CoV-2 (PCR) Not detected (NOT DETECT) 07/18/22 16:57 Vitals Last Vital Signs Temp 98.1 F 07/22/22 08:00 Pulse 96 07/22/22 08:00 Resp 18 07/22/22 08:00 BP 138/49 07/22/22 08:00 Pulse Ox 94 07/22/22 08:00 O2 Del Method 07/22/22 08:00 Discharge Plan Discharge Patient Disposition: Home Condition: Stable Prescriptions: No Action donepezil 10 mg tablet 10 mg PO BEDTIME valproic acid (as sodium salt) 250 mg/5 mL (5 mL) solution 250 mg PO QAM rosuvastatin 40 mg tablet 20 mg PO BEDTIME isosorbide mononitrate 30 mg Tablet Extended Release 24 Hr 30 mg PO QAM allopurinol 100 mg Tablet 200 mg PO QAM metoprolol succinate 25 mg Tablet Extended Release 24 Hr 12.5 mg PO QAM loperamide 1 mg/7.5 mL Liquid 2 mg PO QID PRN (Reason: Diarrhea) Qty: 300 0RF Eliquis 5 mg Tablet 5 mg PO BID Lantus U-100 Insulin 100 unit/mL solution 30 unit SUBCUT QAM furosemide 20 mg tablet 10 mg PO DAILY PRN (Reason: Edema) potassium chloride 20 mEq tablet extended release 10 meq PO DAILY PRN (Reason: when taking lasix) citalopram [Celexa] 40 mg Tablet 20 mg PO QAM levothyroxine 25 mcg Tablet 25 mcg PO QAM Referrals: Marisela Pacheco MD [Primary Care Provider] - Patient Instructions: Opioid Safety Discharge Attestations Status at Discharge: Cognitive status at discharge: moderately impaired cognition, Behavioral status at discharge: cooperative, Coding Level of Care Code Acute Chg FW CO note Diagnoses Pneumonia J18.9 Sepsis A41.9 Afib I48.91 Diabetes E11.9 Dementia F03.90 Parkinson disease G20
--- NOTE | 2022-07-22 09:44 | PM.DCS ---
Discharge Providers Date of Admission: 07/18/22 18:39 Date of Discharge: July 22, 2022 Attending Provider at Admission: Howie Barajas MD Attending Provider at Discharge: Anastasiia Ramos MD Primary Care Provider: Marisela Pacheco MD Diagnoses at Discharge Discharge Diagnosis (1) Pneumonia: Status: Acute (2) Sepsis: Status: Acute (3) Afib: Status: Acute (4) Diabetes: Status: Acute (5) Dementia: Status: Acute (6) Parkinson disease: Status: Acute Reason for Visit Reason for Visit: PAINFUL URINATION Brief History: Briana Fishman is a 86 year old male who is a poor historian, history of dementia, history of dysphagia, cannot provide any history, present to the hospital for chief complaint of epigastric and left subcostal pain.? In the ER he has been diagnosed also related to pneumonia.? D-dimer is 3 he is on Eliquis for A. fib.? COVID-negative.? Cirrhotic liver with splenomegaly evident on CT scan, concern for cystitis as well PEG tube is in place.? Been given septic bolus and antibiotics. With patient was moaning in sleep, she was concerned about different urine color, foul-smelling, he wears adult diapers, he takes certain pills through mouth otherwise most of the time.? Osmolite 1.2 can 3 times a day with water flushes, was concerned because he was not acting his usual self that prompted the visit to the ER Hospital Course Hospital Course 86-year-old male who has aphasia, dysphagia, gets feeds through PEG tube Osmolite 1.22 cans 3 times a day with water flush, presented with pneumonia and UTI related sepsis, patient was kept on antibiotics for hospitalization, remained afebrile, no significant leukocytosis, cultures remain negative to date, as per the they have already spoken with [facility] hospice, would not recommend continuation of Eliquis if he is going on hospice, finished enough days of antibiotics, no need to continue antibiotics at the time of discharge. Patient has Parkinson's, dementia, bedbound, Physical Exam Narrative: Hemodynamically stable Bed no Responds to simple questions Nonverbal PEG tube in place Abdomen soft No new focal deficit Discharge Data Studies Completed and Pending Completed Studies During Hospitalization Category Date Time Status CT chest abdomen [place] [[place] [id number] Cat Scan 07/18/22 14:42 Completed ] Stat XR chest 1V portable [id number] Stat Exams 07/18/22 14:05 Completed US gall bladder [id number] Stat Ultrasound 07/18/22 15:57 Completed Pending at discharge Category Date Time Status Blood Culture Stat Lab 07/18/22 14:30 Results SARS Covid-2 Antigen Routine Lab 07/22/22 00:01 Uncollected Radiology Impressions Chest X-Ray 07/18/22 14:05 IMPRESSION: 1. Mild interstitial infiltrate in the left lower lobe that could represent developing pneumonia. Chest/Abdomen/Pelvis CT 07/18/22 14:42 IMPRESSION: 1. Small bilateral pleural effusions with patchy infiltrates in the lung bases with compressive atelectasis.Correlation for pneumonia. 2. Cirrhotic liver with splenomegaly . 3. Distended hydropic gallbladder with wall thickening and surrounding induration. Increased attenuation in the gallbladder lumen suspicious for gallbladder hemorrhage, infection, or gallbladder mass. Recommend ultrasound in further evaluation. Correlation for cholecystitis. 4. Gallbladder abuts the splenic flexure colon with associated colonic wall thickening and induration likely reactive. 5. No hydronephrosis in either kidney. Atrophic kidneys bilaterally. 6. Diffuse bladder wall thickening suspicious for cystitis. 7. PEG tube in place. Notified Girma Rm MD at 07/18/2022 4:02 PM. Gallbladder Ultrasound 07/18/22 15:57 IMPRESSION: Gallbladder tumefactive sludge, negative for cholecystitis. Laboratory Results WBC 12.7 10^3/uL (4.0-10.0) H 07/20/22 03:28 RBC 4.02 10^6/uL (4.1-5.3) L 07/20/22 03:28 Hgb 12.7 g/dL (11.7-16.6) 07/20/22 03:28 Hct 42.0 % (42.0-52.0) 07/20/22 03:28 MCV 104.5 fl (80-94) H 07/20/22 03:28 MCH 31.6 pg (28.0-34.0) 07/20/22 03:28 MCHC 30.2 g/dL (30.0-36.0) 07/20/22 03:28 RDW 15.1 % (12.1-15.1) 07/20/22 03:28 Plt Count 158 10^3/cmm (130-400) 07/20/22 03:28 MPV 10.0 fL (7.4-10.4) 07/20/22 03:28 Neut % (Auto) 74.5 % 07/20/22 03: Lymph % (Auto) 18.0 % 07/20/22 03:28 [place] % (Auto) 6.1 % 07/20/22 03: Eos % (Auto) 0.2 % 07/20/22 03:28 Baso % (Auto) 0.6 % 07/20/22 03:28 Neut # (Auto) 9.47 10^3/uL (1.8-7.7) H 07/20/22 03: Lymph # (Auto) 2.3 10^3/uL (0.8-4.8) 07/20/22 03:28 [place] # (Auto) 0.8 10^3/uL (0.2-0.9) 07/20/22 03: Eos # (Auto) 0.0 10^3/uL (0.0-0.8) 07/20/22 03:28 Baso # (Auto) 0.1 10^3/uL (0.0-0.1) 07/20/22 03:28 Nucleated RBC % (auto) 0 % 07/20/22 03: Nucleated RBCs # 0.0 /100WBC 07/20/22 03:28 D-Dimer 3.72 ug/mIFEU (0-0.59) H 07/18/22 14:17 Sodium 134 mmol/L (136-145) L 07/20/22 03:28 Potassium 3.9 mmol/L (3.5-5.1) 07/20/22 03:28 Chloride 99 mmol/L (98-107) 07/20/22 03:28 Carbon Dioxide 25 mmol/L (22-29) 07/20/22 03:28 Anion Gap 13.9 (5-19) 07/20/22 03:28 BUN 28 mg/dL (8-23) H 07/20/22 03:28 Creatinine 1.0 mg/dL (0.7-1.2) 07/20/22 03:28 GFR Calculation Not Reportable 07/20/22 03:28 Glucose 144 mg/dL (65-115) H 07/20/22 03:28 POC Glucose 137 mg/dL (70-110) H 07/22/22 06:06 Calculated Osmolality 286 mOsm/kg (285-295) 07/20/22 03:28 Lactic Acid 1.9 mmol/L (0.5-2.2) 07/18/22 14:17 Calcium 8.9 mg/dL (8.5-10.5) 07/20/22 03:28 Phosphorus 2.7 mg/dL (2.5-4.5) 07/19/22 04:48 Magnesium 1.8 mg/dL (1.7-2.3) 07/19/22 04:48 Total Bilirubin 0.4 mg/dL (0.15-1.2) 07/18/22 14:17 AST 32 U/L (0-40) 07/18/22 14:17 ALT 13 U/L (0-41) 07/18/22 14:17 Alkaline Phosphatase 176 U/L (40-130) H 07/18/22 14:17 Ammonia 37 umol/L (16-60) 07/18/22 19:40 Troponin T Baseline 32 ng/L (0-15) H 07/18/22 14:17 Troponin T 120 Minute 30.35 ng/L (0-15) H 07/18/22 16:15 Delta Troponin T -1.65 ABS# (0-10) L 07/18/22 16:15 Troponin T Hi Sens 6Hr 28.19 ng/L (0-15) H 07/18/22 19:40 Troponin T Hi Sens 6Hr Delta -3.81 ng/L (0-12) L 07/18/22 19:40 C-Reactive Protein 126.1 mg/L (0.0-4.9) H 07/19/22 04:48 NT-Pro-B Natriuret Pep 8547 pg/mL (0-450) H 07/18/22 14:17 Total Protein 7.2 g/dL (6.6-8.7) 07/18/22 14:17 Albumin 2.6 g/dL (3.5-5.2) L 07/18/22 14:17 Globulin 4.6 g/dL (1.3-4.6) 07/18/22 14:17 Lipase 139 U/L (13-60) H 07/18/22 14:17 Procalcitonin 0.18 ng/mL (0-0.5) 07/18/22 16:15 TSH 3.81 uIU/mL (0.27-4.20) 07/18/22 14:17 Urine Color Yellow (Yellow) 07/18/22 14:55 Urine Appearance Clear (CLEAR) 07/18/22 14:55 Urine pH 6 (5-7) 07/18/22 14:55 Ur Specific [place] 1.010 (1.005-1.030) 07/18/22 14:55 Urine Protein 1+ (Negative) H 07/18/22 14:55 Urine Glucose (UA) Norm (Normal) 07/18/22 14:55 Urine Ketones Negative (Negative) 07/18/22 14:55 Urine Blood 2+ (Negative) H 07/18/22 14:55 Urine Nitrate Negative (Negative) 07/18/22 14:55 Urine Bilirubin Neg (Negative) 07/18/22 14:55 Prot Sulfosalicylic Acd Negative (Negative) 07/18/22 14:55 Urine Urobilinogen 1 mg/dL (Negative) H 07/18/22 14:55 Ur Leukocyte Esterase Negative (Negative) 07/18/22 14:55 Urine RBC 0-4 /hpf (0-2) H 07/18/22 14:55 Urine WBC 0-4 /hpf (0-5) H 07/18/22 14:55 Ur Squamous Epith Cells 0-4 /hpf (0-5) H 07/18/22 14:55 Amorphous Sediment Not Reportable 07/18/22 14:55 Urine Bacteria Trace /hpf (NONE) 07/18/22 14:55 Hyaline Casts 0-4 /lpf H 07/18/22 14:55 Coronavirus 229E (PCR) Not detected (NOT DETECT) 07/18/22 16:57 SARS-CoV-2 (PCR) Not detected (NOT DETECT) 07/18/22 16:57 Vitals Last Vital Signs Temp 98.1 F 07/22/22 08:00 Pulse 96 07/22/22 08:00 Resp 18 07/22/22 08:00 BP 138/49 07/22/22 08:00 Pulse Ox 94 07/22/22 08:00 O2 Del Method 07/22/22 08:00 Discharge Plan Discharge Patient Disposition: Xfer SNF Condition: Stable Prescriptions: Continued donepezil 10 mg tablet 10 mg PO BEDTIME valproic acid (as sodium salt) 250 mg/5 mL (5 mL) solution 250 mg PO QAM isosorbide mononitrate 30 mg Tablet Extended Release 24 Hr 30 mg PO QAM allopurinol 100 mg Tablet 200 mg PO QAM metoprolol succinate 25 mg Tablet Extended Release 24 Hr 12.5 mg PO QAM Lantus U-100 Insulin 100 unit/mL solution 30 unit SUBCUT QAM furosemide 20 mg tablet 10 mg PO DAILY PRN (Reason: Edema) potassium chloride 20 mEq tablet extended release 10 meq PO DAILY PRN (Reason: when taking lasix) levothyroxine 25 mcg Tablet 25 mcg PO QAM Held loperamide 1 mg/7.5 mL Liquid 2 mg PO QID PRN (Reason: Diarrhea) Qty: 300 0RF Hold Instructions: hold till seen by pcp Discontinued rosuvastatin 40 mg tablet 20 mg PO BEDTIME Eliquis 5 mg Tablet 5 mg PO BID citalopram [Celexa] 40 mg Tablet 20 mg PO QAM Discharge Orders: Discharge Order (Routine); Ordered 07/22/22 Ordered By: Anastasiia Ramos Referrals: [facility] [Outside] [facility] [Outside] Marisela Pacheco MD [Primary Care Provider] - 4-7 days Discharge Diet: Usual diet Discharge Activity: Limit activity as instructed Discharge Attestations Time Spent in Discharge Care*: less than 30 min Status at Discharge: Cognitive status at discharge: moderately impaired cognition, Behavioral status at discharge: cooperative, Quality Metrics Clinical Quality Measures [ No reported AMI, CVA or VTE this stay] Coding Level of Care Code Acute Chg DC note Diagnoses Pneumonia J18.9 Sepsis A41.9 Afib I48.91 Diabetes E11.9 Dementia F03.90 Parkinson disease G20
[2022-07-22 11:12] LABS: SARS Covid-2 Antigen negative (Negative)
[2022-07-22 12:00] VITALS: BP 143/78; PULSE 94; RESP 18; TEMP 36.6; O2SAT 95
[2022-07-22 12:17] LABS: Glucose Point of Care 115 mg/dL (70-110)
[2022-07-22 14:39] VITALS: BP 143/78; PULSE 94; RESP 18; TEMP 36.6; O2SAT 95
== END 2022-07-22 14:30 | disposition hospice, home (50) | DRG 871 ==
LOC: ER 17:57 → MEDSURG 18:39
PROVIDERS: Admitting Provider Internal Medicine; Emergency Provider Emergency Medicine; PCP Family Medicine; Visit Provider Internal Medicine
DX: A41.9 Sepsis, unspecified organism (principal); J18.9 Pneumonia, unspecified organism; N39.0 Urinary tract infection, site not specified; R47.01 Aphasia; I48.91 Unspecified atrial fibrillation; E11.22 Type 2 diabetes mellitus with diabetic chronic kidney disease; I12.9 Hypertensive chronic kidney disease with stage 1 through stage 4 chronic kidney disease, or unspecified chronic kidney disease; E11.51 Type 2 diabetes mellitus with diabetic peripheral angiopathy without gangrene; N18.9 Chronic kidney disease, unspecified; G20 Parkinson's disease; F02.80 Dementia in other diseases classified elsewhere, unspecified severity, without behavioral disturbance, psychotic disturbance, mood disturbance, and anxiety; K74.60 Unspecified cirrhosis of liver; Z93.1 Gastrostomy status; R13.10 Dysphagia, unspecified; Z74.01 Bed confinement status; Z79.4 Long term (current) use of insulin; I25.10 Atherosclerotic heart disease of native coronary artery without angina pectoris; Z95.1 Presence of aortocoronary bypass graft; Z95.5 Presence of coronary angioplasty implant and graft; H40.9 Unspecified glaucoma; M10.9 Gout, unspecified; E78.5 Hyperlipidemia, unspecified; Z66 Do not resuscitate; Z87.891 Personal history of nicotine dependence; Z95.0 Presence of cardiac pacemaker
CPT/HCPCS: 36415; 36416; 51701; 71045; 71250; 74176; 76705; 80048; 80053; 81001; 82140; 82962; 83605; 83690; 83735; 83880; 84100; 84145; 84443; 84484; 85025; 85378; 86140; 86403; 87040; 87426; 87449; 87635; 87641; 93005; 94640; 94664; 96365; 96372; 96375; 99285; J0692; J1815; J1940; J2543; J3370; J7030; J7040; J7608; J7613

== ENCOUNTER → 2022-11-22 11:00 | Outpatient (BNVA) | payer OTHER, SELFPAY | PROVIDERS: PCP Family Medicine; Visit Provider Internal Medicine Cardiovascular Disease | DX: I48.91 Unspecified atrial fibrillation (principal); I73.9 Peripheral vascular disease, unspecified; I25.10 Atherosclerotic heart disease of native coronary artery without angina pectoris; Z95.0 Presence of cardiac pacemaker; E78.2 Mixed hyperlipidemia; Z87.891 Personal history of nicotine dependence; Z79.01 Long term (current) use of anticoagulants; I12.9 Hypertensive chronic kidney disease with stage 1 through stage 4 chronic kidney disease, or unspecified chronic kidney disease; E11.22 Type 2 diabetes mellitus with diabetic chronic kidney disease; N18.9 Chronic kidney disease, unspecified; Z79.4 Long term (current) use of insulin | CPT/HCPCS: 99214 ==